=== PATIENT | male | born 1960 | race Caucasian/White ===

== ENCOUNTER 2018-02-14 14:12 | Inpatient (IN) | payer MEDICAID ==
--- OUTSIDE RECORDS SUMMARY | 2018-02-14 15:38 | XMS REPORT ---
:1960 External Reference #:[id number] Author Organization [facility] Address [address] [place] [address] Phone [phone] Care Team Providers Name Role Phone Marlin Colmenares MD Primary Care Physician Unavailable Payers Type Date Identification Numbers Payment Subscriber Provider Workers Compensation Onset: Policy Number: Mayito Collins 2017 [id number] Group Name: [phone] [address] [address] PayID: [place] [address] Problems Date Description Provider Status Onset: 10/17/2017 Arthralgia of the pelvic region and [place] Read M.D. Active thigh Onset: 11/01/2017 Localized, primary osteoarthritis of [place] Read M.D. Active the pelvic region and thigh Onset: 11/29/2017 Current tear of medial cartilage AND/OR [place] Read M.D. Active meniscus of knee Family History Date Family Member(s) Problem(s) Comments General No Current Problems Social History Type Date Description Comments Lives With Spouse Occupation Not Currently Working ETOH Use Occasionally consumes alcohol Smoking Patient has never smoked Exercise Type/Frequency Exercises sporadically Allergies, Adverse Reactions, Alerts Date Description Reaction Status Severity Comments 11/29/2017 Hydrocodone active 10/17/2017 NKDA inactive Medications Medication Date Status Form Strength Qnty SIG Indications Ordering Provider Ibuprofen 200 0 Active Tablets 200mg 400-600mg Unknown 000 every 6 hours as needed for pain. Metoprolol 0 Active Tablets ER 100mg Darrian, Succinate ER 000 24HR MD Marlin Hydrocodone-A Hx Tablets 5-325mg 60tabs 1 to 2 [place] 018 - tablets by Jacek mouth M.D. 018 every 4-6 hours as needed for pain. Mobic Hx Tablets 7.5mg 60tabs 1 by mouth M25.552 Lind[place] 018 - twice a Jacek, day as M.D. 018 needed Hydrocodone-A Hx Tablets 5-325mg Take 1 Unknown cetaminophen 000 - Tablet 3 Times A 018 Day as Needed Vital Signs Date Vital Result Comment 01/31/2018 Height 67 inches 5'7" Weight 212.00 lb Heart Rate 76 /min BP Systolic Recheck 126 mmHg BP Diastolic Recheck 82 mmHg Respiratory Rate 16 /min Body Temperature 98.0 F BMI (Body Mass Index) 33.2 kg/m2 01/15/2018 Height 67 inches 5'7" Weight 208.00 lb Heart Rate 76 /min BP Systolic Recheck 124 mmHg BP Diastolic Recheck 84 mmHg Respiratory Rate 16 /min Body Temperature 98.1 F BMI (Body Mass Index) 32.6 kg/m2 01/03/2018 Height 67 inches 5'7" Weight 207.00 lb Heart Rate 80 /min BP Systolic Recheck 132 mmHg BP Diastolic Recheck 84 mmHg Respiratory Rate 16 /min Body Temperature 97.7 F BMI (Body Mass Index) 32.4 kg/m2 11/29/2017 Height 67 inches 5'7" Weight 190.00 lb Heart Rate 76 /min BP Systolic Recheck 122 mmHg BP Diastolic Recheck 76 mmHg Respiratory Rate 16 /min Body Temperature 97.6 F BMI (Body Mass Index) 29.8 kg/m2 11/01/2017 Height 67.5 inches 5'7.50" Weight 190.00 lb Heart Rate 80 /min BP Systolic Recheck 124 mmHg BP Diastolic Recheck 84 mmHg Respiratory Rate 16 /min Body Temperature 98.4 F BMI (Body Mass Index) 29.3 kg/m2 10/17/2017 Height 67.5 inches 5'7.50" Weight 195.00 lb BP Systolic 122 mmHg BP Diastolic 80 mmHg Respiratory Rate 18 /min Body Temperature 97.1 F Pain Level 10 BMI (Body Mass Index) 30.1 kg/m2 Results Test Date Test Result H/L Range Note Laboratory test finding 01/21/2018 LDH 331 U/L High 140-271 Ferritin 1235.7 ng/mL High 24-336 CBC Auto Diff 01/21/2018 Red Blood Count 4.26 10^6/uL 4.00-5.40 White Blood Count 8.3 10^3/uL 3.5-10.8 Hemoglobin 15.9 g/dL 14.0-18.0 Hematocrit 45 % 42-52 Mean Corpuscular Volume 106 fL High 80-94 1 Mean Corpuscular Hemoglobin 37 pg High 27-31 Mean Corpuscular HGB Conc 35 g/dL 31-36 Red Cell Distribution Width 15 % 10.5-15 Platelet Count 83 10^3/uL Low 150-450 Mean Platelet Volume 8.0 um3 7.4-10.4 Abs Neutrophils 4.9 10^3/uL 1.5-7.7 Abs Lymphocytes 1.9 10^3/uL 1.0-4.8 Abs Monocytes 0.9 10^3/uL High 0-0.8 Abs Eosinophils 0.4 10^3/uL 0-0.6 Abs Basophils 0.1 10^3/uL 0-0.2 Abs Nucleated RBC 0 10^3/uL Granulocyte % 59.7 % 38-83 Lymphocyte % 23.1 % Low 25-47 Monocyte % 11.0 % High 0-7 Eosinophil % 5.3 % 0-6 Basophil % 0.9 % 0-2 Nucleated Red Blood Cells % 0.2 Retic Count 01/21/2018 Retic Count 2.9 % High 0.5-1.5 Mean Retic Volume 128.4 Immature Retic Fraction 0.55 RBC Retic Count 4.26 10^6/uL Low 4.6-6.2 Corrected Retic Count 2.9 % High 0.5-1.5 Maturation Factor Retic 1.0 Retic Index 2.90 Hematocrit for Retic CNT 45 % 42-52 Laboratory test finding 01/21/2018 Direct Matt NEGATIVE Iron & Iron Binding Capacity 01/21/2018 Iron 117 g/dL 50-212 Unsaturated Iron Binding 108 g/dL Total Iron Binding Capacity 225 g/dL Low 250-450 Transferrin 161 mg/dL Low 203-362 % Iron Saturation 52 % 15-55 Laboratory test finding 01/21/2018 Hepatitis B Surface Ag Nonreactive Nonreactive Hepatitis B Angelika AB 01/21/2018 Hepatitis B Surface AB Immune Immune Titer Hep B Surf AB Level 151.28 mIU/mL >12 Laboratory test finding 01/21/2018 Hepatitis B Core AB Nonreactive Nonreactive Igm Hepatitis C Antibody High Reactive Nonreactive 2 Haptoglobin 31 mg/dL 30 - 200 3 Hepatitis C Rna Quant [id number] IU/mL Undetected 4 1 Consistent with Previous Results Reported on 12/26/17 2 High reactive sample are considered positive for Hepatitis C 3 Test Performed by: [facility] [address] [place] [address] 4 Result in log IU/mL is 6.46. ADDITIONAL INFORMATION The quantification range of this assay is 15 to 100,000,000 IU/mL (1.18 log to 8.00 log IU/mL). Testing was performed using the kim HCV test ([employer] with the kim [employer] System. Test Performed by: [facility] [address] [place] [address] Procedures Date CPT Code Description Status 01/04/2018 96592 Arthroscopy,Knee,Meniscectomy Medial Or Lateral Completed Encounters Type Date Location Provider CPT E/M Dx Office Visit 01/15/2018 [facility] [place] [address] S83.232D 9:00a Of Shannan Rodríguez M.D. M25.552 M16.12 Office Visit 11/29/2017 10:30a [facility] [place] 43954 M16.12 Shannan Rodríguez M.D. S83.232A Office Visit 11/01/2017 11:15a [facility] [place] [address]4621 M16.12 Shannan Rodríguez M.D. S70.02xD Office Visit 10/17/2017 8:30a [facility] [place] 32133 M16.12 Carolee Gibson M25.552 Plan of Care 01/31/2018 - [place] Read M.D.M16.12 Unilateral primary osteoarthritis, left hipFollow up:4 weeks after surgery
[2018-02-14] MEDS ORDERED: Morphine VIAL* 10 MG/ML 1 ML VIAL IV PRN (15:44)
--- NOTE | 2018-02-14 16:54 | PN ---
Progress Note - Progress Note Date of Service: 01/14/18 Note: Critical Care consultation dictated. Patient had a paroxysmal SVT, which spontaneously converted shortly after admission to the ICU. This was likely the source of the decrese in blood pressure.
[2018-02-14] MEDS: Famotidine TAB* 20 MG PO SCH (17:39)
[2018-02-14 18:53] LABS: EGFR Non-African American 89.6 (>60)
[2018-02-14] MEDS: Heparin VIAL(*) 5000 UNITS/ML VIAL (FIVE THOUSAND) SUBCUT SCH (20:26)
[2018-02-14] MEDS ORDERED: Acetaminophen TAB* 325 MG PO PRN (21:09)
--- NOTE | 2018-02-14 22:14 | CONS ---
CRITICAL CARE CONSULT: DATE OF CONSULT: 02/14/18 REASON FOR CONSULT: Tachycardia and low blood pressure. HISTORY OF PRESENT ILLNESS: This patient is a 57-year-old white male with apparent cirrhosis of the liver and recent-onset ascites who is admitted to the ICU because of tachycardia and hypotension. On arrival to the ICU, systolic BP had increased from 80 to 120 mm Hg but heart rate was in the 140s. ECG showed a narrow-complex tachycardia with no p waves and a regular rhythm, consistent with paroxysmal SVT or junctional tachycardia Shortly after admission, the tachycardia resolved spontaneously, whih is consistent wth the Dx of paroxysmal SVT. Patient was asymptomatic at the time of the tahycardia. The source of the cirrhosis is unclear - ETOH intake is not excessive, but pt does have hepatitis C. There is also apprarently a mass in the right lobe of the liver (? hepatoma). A paracentesis was performed today to r/o SBP. PAST MEDICAL HISTORY: There is a history of hypertension - Rx metoprolol (100 mg daily). PHYSICAL EXAM: The patient was alert, oriented, and breathing comfortably. Vital Signs: Temp was 98.5 pulse rate 146, respiratory rate was 16, blood pressure was 132/80, arterial O2 sat was 92% on room air. HEENT: Pupils were mid position and reactive. There is no facial asymmetry. Lungs were clear to auscultation. Cardiac exam revealed irregular rhythm without murmurs or rubs. Abdomen was distended. There was question of a positive fluid wave and there was no involuntary or rebound tenderness. Extremities were warm, not cyanotic, and there was trace to 1+ edema. DIAGNOSTIC STUDIES/LAB DATA: Admission laboratory data is pending at this point as is admission chest x-ray. Admission electrocardiogram described previously. IMPRESSION: Paroxysmal SVT, which resolved spontaneously, and probably contributed to the initial hypotension.. BP appears adequate at this time. . PLAN: Will monitor cardiac rhythm overnight and obtain a cardiac ultrasound in the AM (looking for a cardiomyopathy from ETOH or HTN). Critical Care Time: 50 minutes [id number]/[facility] #: [id number] BARBARA
[2018-02-15] MEDS ORDERED: Morphine VIAL* 4 MG/ML VIAL (1 ml vial) IV ONE ×2 (07:53→08:42)
[2018-02-15] MEDS ORDERED: Morphine VIAL* 10 MG/ML 1 ML VIAL IV PRN (08:32)
--- NOTE | 2018-02-15 08:42 | ECHO ---
Patient: AAKASH MADRID [facility] Rec#: [id number] : 1960 Date: 02/15/2018 Age: 57y Height: 170 cm / 66.9 in Weight: 100.2 kg / 220.8 lbs Sex: M BSA: 2.11 Room#: [facility] Admit Date#: 02/14/2018 Type: Inpatient Referring: Asa Sparrow MD Reading: Chuy Casas MD Media Manager: Dodie Maxwell RDCS CC: Marlin Colmenares MD Transthoracic Echocardiogram Indication: Abnormal EKG BP: 121/76 HR: 82 Rhythm: NSR Findings History: HTN, smooker, thrombocytopenia, right lobe liver mass. Technical Comments: The study quality is fair. Completed at 0817. Left Ventricle: The left ventricular chamber size is normal. Mild concentric left ventricular hypertrophy is observed. There is a prominent septal knuckle. There is normal left ventricular systolic function. The estimated ejection fraction is 60-65%. Abnormal left ventricular diastolic function is observed. Abnormal left ventricular diastolic filling is observed, consistent with impaired relaxation. Left Atrium: The left atrium is mildly dilated. Right Ventricle: Moderator Band present. The right ventricle is mild to moderately dilated. The right ventricle wall thickness is mildly increased. The right ventricular global systolic function is low normal. Right Atrium: The right atrial cavity size is normal. Aortic Valve: The aortic valve is trileaflet. The aortic valve leaflets are mildly thickened. There is a trace of aortic regurgitation. There is no evidence of aortic stenosis. Mitral Valve: The mitral valve leaflets are mildly thickened. There is trace to mild mitral regurgitation. There is no evidence of mitral stenosis. Tricuspid Valve: The tricuspid valve leaflets are normal. There is trace tricuspid regurgitation. Unable to estimate the right ventricular systolic pressure. There is no tricuspid stenosis. Pulmonic Valve: The pulmonic valve appears normal. There is a trace pulmonic regurgitation. There is no pulmonic stenosis. Pericardium: There is no significant pericardial effusion. A pericardial fat pad is visualized. Aorta: There is mild dilatation of the ascending aorta. There is no dilatation of the aortic arch. There is mild dilatation of the aortic root. Pulmonary Artery: The main pulmonary artery is not well visualized. Venous: The venous system is not well visualized. The inferior vena cava is not visualized. Summary: There was not any prior study for comparison. Conclusions Mild concentric left ventricular hypertrophy is observed. There is normal left ventricular systolic function. The estimated ejection fraction is 60-65%. Abnormal left ventricular diastolic filling is observed, consistent with impaired relaxation. The left atrium is mildly dilated. The right ventricle is mild to moderately dilated. The right ventricle wall thickness is mildly increased. The right ventricular global systolic function is low normal. There is a trace of aortic regurgitation. There is trace to mild mitral regurgitation. There is trace tricuspid regurgitation. Unable to estimate the right ventricular systolic pressure. There is mild dilatation of the ascending aorta. Measurements Name Value Normal Range RVIDd (AP) 2D 2.7 cm (0.9 - 2.6) RVDdMajor (2D) 5.1 cm (2.2 - 4.4) RAd ISD 4CH 4.6 cm (3.4 - 4.9) RA (A4C)W 4 cm (2.9 - 4.6) IVSd (2D) 1.1 cm (0.6 - 1) LVPWd (2D) 1.1 cm (0.6 - 1) LVIDd (2D) 4.5 cm (3.6 - 5.4) LVIDs (2D) 2.8 cm - LV FS (2D) 38 % (25 - 45) Aortic Annulus 2 cm (1.4 - 2.6) Ao root diameter (2D) 3.8 cm (2.1 - 3.5) Ascending Ao 3.9 cm (2.1 - 3.4) Aortic arch 2.8 cm (1.8 - 3.4) LA dimension (AP) 2D 4.3 cm (2.3 - 3.8) LAd ISD 4CH 5.3 cm (2.9 - 5.3) LA ISD 4CH W 3.7 cm (2.5 - 4.5) Name Value Normal Range LA ESV BP (A/L) index 25 ml/m2 - Name Value Normal Range MV E-wave Vmax 0.7 m/sec - MV deceleration time 187 msec - MV A-wave Vmax 0.9 m/sec - MV E:A ratio 0.8 ratio - LV septal e' Vmax 0.08 m/sec - LV lateral e' Vmax 0.08 m/sec - LV E:e' septal ratio 8.75 ratio - LV E:e' lateral ratio 8.75 ratio - Name Value Normal Range AV Vmax 1.7 m/sec - AV VTI 28.8 cm - AV peak gradient 12 mmHg - AV mean gradient 7 mmHg - LVOT Vmax 1.4 m/sec - LVOT VTI 27.3 cm - LVOT peak gradient 8 mmHg - LVOT mean gradient 5 mmHg - PB Vmax 1 m/sec - Name Value Normal Range PV Vmax 1.1 m/sec - PV peak gradient 5 mmHg -
[2018-02-15] MEDS: Famotidine TAB* 20 MG PO SCH (08:49)
[2018-02-15] MEDS: Heparin VIAL(*) 5000 UNITS/ML VIAL (FIVE THOUSAND) SUBCUT SCH ×2 (08:50→21:54)
[2018-02-15] MEDS ORDERED: Lidocaine 1% INJ* 10 MG/ML 30 ML SDV ONE (10:26)
--- NOTE | 2018-02-15 11:29 | PN ---
Progress Note - Progress Note Date of Service: 02/20/18 SOAP: Subjective: [C/o RUQ abdominal pain this am which seems to be new/different compared to the abdominal discomfort he has been experiencing related to the ascites. Requiring 5L supp O2 and saturating in low 90s, no cough or fever.] Objective: [ Laboratory Results - last 24 hr 02/14/18 02/14/18 02/14/18 18:10 18:10 18:10 APTT 40.6 H Sodium 136 Potassium 4.4 Chloride 106 Carbon Dioxide 22 Anion Gap 8 BUN 21 Creatinine 0.88 Est GFR ( Amer) 108.4 Est GFR (Non-Af Amer) 89.6 BUN/Creatinine Ratio 23.9 H Glucose 124 H Lactic Acid 2.4 H* Calcium 8.5 L Total Bilirubin 3.00 H Direct Bilirubin 1.50 H Indirect Bilirubin 1.5 H AST 144 H ALT 71 H Alkaline Phosphatase 187 H Total Protein 7.0 Albumin 2.4 L Globulin 4.6 H Albumin/Globulin Ratio 0.5 L Acetaminophen (Tylenol Tab*) 650 mg PO Q4H PRN PRN Reason: PAIN Last Admin: 02/14/18 22:51 Dose: 650 mg Famotidine (Pepcid Tab*) 20 mg PO DAILY [facility] Last Admin: 02/15/18 08:49 Dose: 20 mg Fentanyl Citrate (Fentanyl*) 25 mcg IV SLOW PU Q4H PRN PRN Reason: DISCOMFORT Last Admin: 02/15/18 12:00 Dose: 25 mcg Heparin Sodium (Porcine) (Heparin Vial(*)) 5,000 units SUBCUT Q12HR [facility] Last Admin: 02/15/18 08:50 Dose: Not Given Morphine Sulfate (Morphine Vial*) 6 mg IV ONCE PRN PRN Reason: PAIN OR HEPATIC COLIC Morphine Sulfate (Morphine Vial*) 4 mg IV Q4H PRN PRN Reason: PAIN Vital Signs: Temp Pulse Resp BP Pulse Ox 98.0 F 94 20 122/68 92 02/15/18 11:43 02/15/18 10:30 02/15/18 12:00 02/15/18 10:30 02/15/18 10:30 Exam: Gen: Relatively well appearing 57 yo male in NAD HEENT: MMM Resp: lungs CTA CV: RRR, no m/r/g Abd: distended, TTP over RUQ/lower anterior R thorax Ext: trace to 1+ LE edema] Assessment: [57 yo male with hepatitis C and cirrhosis with new onset ascites admitted yesterday with concern for SBP due to tachycardia and hypotension with new ascites and abdominal pain. Recent US showed concerning liver lesion, confirmed by abdominal MRI. Diagnostic paracentesis showed <500 WBCs cells and primarily lymphocytes, ruling out SBP. His initial EKG looked like SVT which spontaneously converted shortly after reaching ICU at which point his BP improved.] Plan: [1. Abdominal pain/ascites with hep C - no SBP - some pain related to abdominal distention but new RUQ pain today, unsure if it is thorax or abdominal - therapeutic paracentesis performed which was somewhat complicated and only yielded 2L before the catheter became dislodged - send ascitic fluid for cytology - start Lasix/spironolactone to control reaccumulation of fluid 2. Hypoxia - concern for possible PE given chest/abd pain and hypoxia - CTA chest which will also evaluate the top of the liver and area that he has been complaining of pain] 3. Liver lesion - requires US guided bx to confirm diagnosis, this will be scheduled as an outpatient - imaging concerning for HCC 4. Paroxysmal SVT - spontaneously converted - sounds to be chronic and patient has managed without BB Dispo: does not require additional ICU care, can transfer to telemetry, CTA pending
[2018-02-15] MEDS: fentaNYL* 50 MCG/ML 2 ML VIAL (100 MCG VIAL) IV SLOW PU PRN ×2 (12:00→16:59)
[2018-02-15] MEDS ORDERED: Iohexol 350* (CONTRAST) 500 ML MDV IV ONE (12:33)
[2018-02-15] MEDS ORDERED: Furosemide TAB* 40 MG PO SCH (13:00)
--- NOTE | 2018-02-15 14:24 | RAD ---
INDICATION: Shortness of breath possibly due to increased abdominal ascites. Hypoxia, chest pain. Assess for PE. COMPARISON: No relevant prior exams available on the [facility]. TECHNIQUE: Multidetector CT images were obtained from the lung apices to the upper abdomen with 81 mL Omnipaque 350 IV contrast. Pulmonary angiogram protocol. Multiplanar reformation including with maximum intensity projection. REPORT: Advanced emphysema with foci of interstitial fibrosis. RIGHT greater than LEFT basilar atelectasis. Negative for pleural effusions. 0.9 cm short axis precarinal lymph node. Negative for thoracic lymphadenopathy based on short axis size criteria. Upper normal heart size. Negative for pericardial effusion. Unremarkable thoracic aorta. Motion artifact degrades the CT pulmonary angiogram at the segmental and distal levels limiting assessment. There is no saddle embolism or conspicuous pulmonary embolism within the main or conspicuous lobar, segmental or where visible subsegmental pulmonary arteries. Images through the upper abdomen are remarkable for perihepatic and perisplenic ascites, cirrhotic liver morphology, and splenomegaly. Negative for suspicious osseous lesions. IMPRESSION: #. Significantly limited CT pulmonary angiogram due to motion artifact without compelling evidence for central pulmonary embolus. If there is persistent clinical concern for pulmonary embolism consider ventilation/perfusion scan for further assessment. #. Advanced emphysema.] RIGHT greater than LEFT basilar atelectasis. Negative for pleural effusions. #. Images through the upper abdomen are remarkable for perihepatic and perisplenic ascites, cirrhotic liver morphology, and splenomegaly.
[2018-02-15] MEDS: Morphine VIAL* 4 MG/ML VIAL (1 ml vial) IV PRN ×2 (14:33→21:57)
[2018-02-15] MEDS ORDERED: Spironolactone TAB* 25 MG PO SCH (21:00)
[2018-02-16] MEDS: fentaNYL* 50 MCG/ML 2 ML VIAL (100 MCG VIAL) IV SLOW PU PRN (00:11)
[2018-02-16] MEDS: Morphine VIAL* 4 MG/ML VIAL (1 ml vial) IV PRN (03:32)
[2018-02-16 06:00] LABS: ABS Basophils 0 10^3/ul (0-0.2); ABS Eosinophils 0.2 10^3/ul (0-0.6); ABS Lymphocytes 1.7 10^3/ul (1.0-4.8); ABS Neutrophils 5.9 10^3/ul (1.5-7.7); ABS Nucleated RBC 0 10^3/ul; Hematocrit 43 % (42-52); Hemoglobin 14.8 g/dl (14.0-18.0); Lymphocyte % 19.1 % (25-47); Mean Corpuscular HGB Conc 35 g/dl (31-36); Mean Corpuscular Hemoglobin 37 pg (27-31); Mean Corpuscular Volume 107 fL (80-94); Nucleated Red Blood Cells % 0.1; Platelet Count 75 10^3/ul (150-450); Red Blood Count 4.01 10^6/ul (4.00-5.40); Red Cell Distribution Width 15 % (10.5-15); White Blood Count 8.8 10^3/ul (3.5-10.8)
[2018-02-16 06:16] LABS: EGFR Non-African American 106.1 (>60)
--- NOTE | 2018-02-16 07:46 | DS ---
- Discharge Summary ADMIT DATE: 02/14/2018 DISCHARGE DATE: 02/16/2018 DISCHARGE DIAGNOSIS: 1. hypotension and tachycardia, likely related to SVT, spontaneously resolved 2. decompensated hepatitis C cirrhosis, sp 2L paracentesis 3. liver mass, pending biopsy 4. acute hypoxia, likely fluid related, will need new home O2 DISCHARGE MEDICATIONS: Home Medications Medication Instructions Recorded Confirmed Type Albuterol HFA INHALER* [Ventolin 2 puff INH Q4HR PRN 02/15/18 02/15/18 History HFA Inhaler*] Metoprolol Succinate XL TAB* 100 mg PO DAILY 02/15/18 02/15/18 History [Toprol XL TAB*] Furosemide TAB* [Lasix TAB*] 40 mg PO DAILY #30 tab 02/16/18 Rx Spironolactone TAB* [Aldactone TAB 50 mg PO BID #60 tab 02/16/18 Rx 25 MG*] DISCHARGE FOLLOW UP: Dr. Rothman to arrange liver biopsy and follow up HOSPITAL COURSE: Javon was recently diagnosed with hepatitis C and cirrhosis after being referred to my office for thrombocytopenia and preoperative clearance for hip replacement. US imaging revealed a likely liver mass. He came to the hospital for MRI of the liver, but came to our office reporting new onset worsening abdominal bloating. He was found to have marked ascites. He was also noted to be acutely hypotensive and tachycardic with a narrow complex tachycardia. He was admitted to the ICU where he spontaneously converted to sinus rhythm and his BP recovered. Diagnostic paracentesis was negative for SBP. Therapeutic paracentesis only yielded 2L prior to the catheter being dislodged but he was symptomatically much better. Lasix and spironolactone were added as well. He was noted to be hypoxic, felt likely related to fluid overload and a component of underlying COPD. CTA was negative for central PE, but did show advanced emphysema. He will be discharged home on O2 given a resting O2 sat of 87% on room air. We will arrange for outpatient biopsy of his liver lesion. I suspect that this is HCC and if that is the case he may be a candidate for liver transplantation, though will clearly refer to a specialty center for this evaluation. >30mins spent, >50% in face to face counseling
[2018-02-16 08:04] VITALS: BP 134/88
--- NOTE | 2018-02-16 20:54 | PROCNOTE ---
Hematology/Oncology Procedure Hematology/Oncology Procedure Note: Bedside Paracentesis: Written informed consent obtained. Time out completed. Area in LLQ identified. Area prepped and draped in a sterile fashion. Local anesthesia with 2% lidocaine. [id number] was initially successful, but flow stopped shortly after connecting to vacutainer. Multiple attempts to adjust catheter was unsuccessful. Catheter pulled. New time out completed, patient redraped and again accessed area in LLQ. Successful drain to gravity. Sent for cytology. Later notified that while changing the bag the catheter was dislodged after 2L was drained. Patient had improved symptomatically, so another attempt was not made.
== END 2018-02-16 10:10 | disposition home or self-care (01) | DRG 952 ==
LOC: ICU 14:12 → MEDTELE 02-15 14:01
PROVIDERS: ADMIT Internal Medicine Hematology & Oncology; ATTEND Internal Medicine Hematology & Oncology
PROC: 0W9G3ZX Drainage of Peritoneal Cavity, Percutaneous Approach, Diagnostic (ICD-10-PCS; principal; 2018-02-16)
DX: I47.1 Supraventricular tachycardia (principal); R18.8 Other ascites; I95.89 Other hypotension; B19.20 Unspecified viral hepatitis C without hepatic coma; R16.0 Hepatomegaly, not elsewhere classified; R09.02 Hypoxemia; J44.9 Chronic obstructive pulmonary disease, unspecified; E87.70 Fluid overload, unspecified; K74.60 Unspecified cirrhosis of liver; D69.6 Thrombocytopenia, unspecified; D75.89 Other specified diseases of blood and blood-forming organs; I10 Essential (primary) hypertension; F17.210 Nicotine dependence, cigarettes, uncomplicated; M16.12 Unilateral primary osteoarthritis, left hip; R74.0 Nonspecific elevation of levels of transaminase and lactic acid dehydrogenase [LDH]; Z88.8 Allergy status to other drugs, medicaments and biological substances; Z79.1 Long term (current) use of non-steroidal anti-inflammatories (NSAID); Z79.899 Other long term (current) drug therapy
CPT/HCPCS: 36415; 49082; 71275; 80053; 82248; 83605; 83615; 85025; 85730; 87641; 88112; 93005; 93306; 99233; A9270-GY; J1644; J2270; J3010

== ENCOUNTER 2018-06-03 13:30 | Emergency (ER) | payer BC, MEDICAID ==
[2018-06-03 14:20] LABS: Hematocrit 45 % (42-52); Hemoglobin 15.5 g/dl (14.0-18.0); Mean Corpuscular HGB Conc 35 g/dl (31-36); Mean Corpuscular Hemoglobin 37 pg (27-31); Mean Corpuscular Volume 106 fL (80-94); Mean Platelet Volume 7.6 fL (7.4-10.4); Platelet Count 84 10^3/ul (150-450); Red Blood Count 4.18 10^6/ul (4.00-5.40); Red Cell Distribution Width 16 % (10.5-15); White Blood Count 7.2 10^3/ul (3.5-10.8)
[2018-06-03 14:25] LABS: Activated Partial Thrombo Time 41.2 seconds (26.0-36.3); INR 1.15 (0.77-1.02)
[2018-06-03 14:42] LABS: Albumin 2.5 g/dL (3.2-5.2); Albumin/Globulin Ratio 0.5 (1-3); BUN/Creatinine Ratio 18.2 (8-20); Calcium 8.5 mg/dL (8.6-10.3); EGFR Non-African American 104.5 (>60); Globulin 4.8 g/dL (2-4); Potassium 4.2 mmol/L (3.5-5.0); Total Bilirubin 3.4 mg/dL (0.2-1.0); Total Protein 7.3 g/dL (6.4-8.9)
--- NOTE | 2018-06-03 15:23 | ED ---
Abdominal Pain/Male - HPI Summary HPI Summary: This patient is a 57 year old M presenting to [facility] with a chief complaint of abdominal distension that began prior to arrival. The patient rates the pain 5/ 10 in severity. Symptoms aggravated by recumbent position. Symptoms alleviated by nothing. Patient reports SOB. Patient states he has had similar symptoms previously. Patient states he has liver CA and was treated with radiation therapy, last treatment was two weeks ago. - History of Current Complaint Chief Complaint: EDAbdPain Stated Complaint: ABD SWELLING Hx Obtained From: Patient Onset/Duration: Sudden Onset, Lasting Hours, Still Present Timing: Constant Severity Initially: Moderate Severity Currently: Moderate Pain Intensity: 5 Pain Scale Used: 0-10 Numeric Location: Diffuse Aggravating Factor(s): Other: - Recumbent position Alleviating Factor(s): Nothing Associated Signs And Symptoms: Positive: Other - SOB - Allergies/Home Medications Allergies/Adverse Reactions: Allergies Allergy/AdvReac Type Severity Reaction Status Date / Time hydrocodone AdvReac Mild GI Upset Verified 06/03/18 13:38 Home Medications: Home Medications Fluticasone NASAL SPRAY 50MCG* [Flonase NASAL SPRAY 50MCG*] 1 spray BOTH NARES DAILY 06/03/18 [History Confirmed 06/03/18] Lactulose* 15 ml PO DAILY 06/03/18 [History Confirmed 06/03/18] Medical Marijuana 1 - 3 puff INH QPM PRN 06/03/18 [History Confirmed 06/03/18] Spironolactone TAB* [Aldactone TAB*] 25 mg PO BID 06/03/18 [History Confirmed ] guaiFENesin ER TAB [Mucinex*] 600 mg PO QPM 06/03/18 [History Confirmed 06/03/18 ] PMH/Surg Hx/FS Hx/Imm Hx Previously Healthy: No Endocrine/Hematology History: Denies: Hx Diabetes Cardiovascular History: Reports: Hx Hypertension Denies: Hx Pacemaker/ICD GI History: Reports: Hx Jaundice, Hx Ulcer - 20 years ago History: Reports: Hx Kidney Stones - 20 years ago Denies: Hx Renal Disease Musculoskeletal History: Reports: Other Musculoskeletal History Sensory History: Reports: Hx Contacts or Glasses Denies: Hx Hearing Aid Opthamlomology History: Reports: Hx Contacts or Glasses Psychiatric History: Denies: Hx Panic Disorder - Surgical History Surgery Procedure, Year, and Place: 01/04/18 - L KNEE - ARTHROSCOPIC. Rt KNEE - - 3 TIMES - ACL (TWICE) AND MMT . Rt ARM - BICEP TENDON ATTEMPTED REPAIR Hx Anesthesia Reactions: No Infectious Disease History: No Infectious Disease History: Reports: Hx Hepatitis - hep C Denies: Traveled Outside the [place] in Last 30 Days - Family History Known Family History: Negative: Cardiac Disease - Social History Occupation: Disabled Lives: With Family Alcohol Use: None Alcohol Amount: couple one nite then none for 2 weeks Hx Substance Use: Yes Substance Use Type: Reports: Marijuana Substance Use Comment - Amount & Last Used: medical Hx Tobacco Use: Yes Smoking Status (MU): Former Smoker Type: Cigarettes Amount Used/How Often: 10 per week Review of Systems Positive: Shortness Of Breath Positive: Other - Positive abdominal distension All Other Systems Reviewed And Are Negative: Yes Physical Exam - Summary Physical Exam Summary: VITAL SIGNS: Reviewed. GENERAL: Patient is a well-developed and nourished male who is lying comfortable in the stretcher. Patient is not in any acute respiratory distress. HEAD AND FACE: Normocephalic and atraumatic. EYES: PERRLA, EOMI x 2, No injected conjunctiva. EARS: Hearing grossly intact. Ear canals and tympanic membranes are WNL. MOUTH: Oropharynx within normal limits. NECK: Supple, trachea is midline, no adenopathy, no JVD. CHEST: Symmetric, no tenderness at palpation LUNGS: Clear to auscultation bilaterally. No wheezing or crackles. CVS: RRR, S1 and S2 present, no murmurs or gallops appreciated. ABDOMEN: Soft, non-tender. Ascites in the abdomen. Positive bowel sounds. No rebound no guarding, and no masses palpated. No abdominal bruit or pulsations. EXTREMITIES: FROM in all major joints, no edema, no cyanosis or clubbing. NEURO: Alert and oriented x 3. No acute neurological deficits. Speech is normal. SKIN: Dry and warm. Pale. Jaundiced Triage Information Reviewed: Yes Vital Signs On Initial Exam: Initial Vitals Temp Pulse Resp BP Pulse Ox 97.6 F 69 18 104/72 92 06/03/18 13:35 06/03/18 13:35 06/03/18 13:35 06/03/18 13:35 06/03/18 13:35 Vital Signs Reviewed: Yes Diagnostics - Vital Signs Vital Signs Temp Pulse Resp BP Pulse Ox 06/03/18 13:35 97.6 F 69 18 104/72 92 - Laboratory Lab Results: Lab Results 06/03/18 06/03/18 06/03/18 Range/Units 13:08 13:08 13:08 WBC 7.2 (3.5-10.8) 10^3/ul RBC 4.18 (4.00-5.40) 10^6/ul Hgb 15.5 (14.0-18.0) g/dl Hct 45 (42-52) % MCV 106 H (80-94) fL MCH 37 H (27-31) pg MCHC 35 (31-36) g/dl RDW 16 H (10.5-15) % Plt Count 84 L (150-450) 10^3/ul MPV 7.6 (7.4-10.4) fL INR (Anticoag Therapy) 1.15 H (0.77-1.02) APTT 41.2 H (26.0-36.3) seconds Sodium 131 L (135-145) mmol/L Potassium 4.2 (3.5-5.0) mmol/L Chloride 101 (101-111) mmol/L Carbon Dioxide 27 (22-32) mmol/L Anion Gap 3 (2-11) mmol/L BUN 14 (6-24) mg/dL Creatinine 0.77 (0.67-1.17) mg/dL Est GFR ( Amer) 126.5 (>60) Est GFR (Non-Af Amer) 104.5 (>60) BUN/Creatinine Ratio 18.2 (8-20) Glucose 111 H (70-100) mg/dL Calcium 8.5 L (8.6-10.3) mg/dL Total Bilirubin 3.40 H (0.2-1.0) mg/dL AST 103 H (13-39) U/L ALT 37 (7-52) U/L Alkaline Phosphatase 128 H (34-104) U/L Total Protein 7.3 (6.4-8.9) g/dL Albumin 2.5 L (3.2-5.2) g/dL Globulin 4.8 H (2-4) g/dL Albumin/Globulin Ratio 0.5 L (1-3) Result Diagrams: 06/03/18 13:08 06/03/18 13:08 Lab Statement: Any lab studies that have been ordered have been reviewed, and results considered in the medical decision making process. Abdominal Pain Fem Course/Dx - Course Assessment/Plan: This patient is a 57 year old M presenting to [facility] with a chief complaint of abdominal distension that began prior to arrival. The patient rates the pain 5/10 in severity. Symptoms aggravated by recumbent position. Symptoms alleviated by nothing. Patient reports SOB. Patient states he has had similar symptoms previously. Patient states he has liver CA and was treated with radiation therapy, last treatment was two weeks ago. Blood work without any significant abnormality except for MCV being of 106, platelets 84, INR is 1.95 PTT is 41.2. Sodium is 131, glucose 111, corrected calcium is normal, total bili including is 3.4. At this point I discussed my physical exam findings with and Dr. Burr from oncology and he recommends for the patient to be discharged to his office for a paracentesis. I discussed the findings and plan with the patient and he agrees. Patient is hemodynamically stable alert and oriented 3. - Diagnoses Provider Diagnoses: Ascites - Provider Notifications Discussed Care Of Patient With: rFitz Burr Time Discussed With Above Provider: 15:53 Instructed by Provider To: Other - Consult with Dr. Burr (oncology) at 1553. He recommends the patient be discharged to his office for parentheses. Discharge - Sign-Out/Discharge Documenting (check all that apply): Patient Departure - Discharge to Dr. Burr's Office - Discharge Plan Condition: Stable Disposition: HOME Patient Education Materials: Ascites (ED) Referrals: Marlin Colmenares MD [Primary Care Provider] - 2 Days Fritz Burr MD [Medical Doctor] - As Soon As Possible Additional Instructions: PROCEED DIRECTLY TO DR. BRUR'S OFFICE RETURN TO THE EMERGENCY DEPARTMENT FOR NEW OR WORSENING SYMPTOMS - Billing Disposition and Condition Condition: STABLE Disposition: Home - Attestation Statements Document Initiated by Scribe: Yes Documenting Scribe: Vanita Wang Provider For Whom Scribe is Documenting (Include Credential): Dr. Scott Lyman MD Scribe Attestation: Vanita Zhang, scribed for Dr. Scott Lyman MD on 06/04/18 at 4878. Scribe Documentation Reviewed: Yes Provider Attestation: The documentation as recorded by the scribe, Vanita Wang accurately reflects the service I personally performed and the decisions made by me, Dr. Scott Lyman MD Status of Scribe Document: Viewed
[2018-06-03 16:40] VITALS: BP 105/76
== END 2018-06-03 16:39 | disposition home or self-care (01) ==
LOC: ED 13:30
DX: R18.8 Other ascites (principal); C22.8 Malignant neoplasm of liver, primary, unspecified as to type; Z87.891 Personal history of nicotine dependence; I10 Essential (primary) hypertension
CPT/HCPCS: 36415; 80053; 85027; 85610; 85730; 99283

== ENCOUNTER 2018-10-15 18:20 | Observation (INO) | payer OTHER ==
[2018-10-15] MEDS ORDERED: oxyCODONE TAB* 5 MG TAB PO ONE (19:05)
--- NOTE | 2018-10-15 19:07 | ED ---
Lower Extremity - HPI Summary HPI Summary: This patient is a 58 year old male presenting to [facility] with a chief complaint of hip pain after a fall 2 hours ago. The patient states he slipped on stones today and had mechanical fall. He on his left side, states left rib pain. He has a Hx left hip fracture that was not operated on. He states hx liver cancer and states he needs a transplant. He rates his pain 10/10 in severity. - History of Current Complaint Chief Complaint: EDFall Stated Complaint: FALL PER PT Time Seen by Provider: 10/15/18 18:59 Hx Obtained From: Patient Onset of Pain: Minutes Onset/Duration: Minutes Severity Initially: Severe Severity Currently: Severe Pain Intensity: 10 Pain Scale Used: 0-10 Numeric Timing: Constant - Allergies/Home Medications Allergies/Adverse Reactions: Allergies Allergy/AdvReac Type Severity Reaction Status Date / Time hydrocodone AdvReac Mild GI Upset Verified 06/03/18 13:38 PMH/Surg Hx/FS Hx/Imm Hx Endocrine/Hematology History: Denies: Hx Diabetes Cardiovascular History: Reports: Hx Hypertension Denies: Hx Pacemaker/ICD GI History: Reports: Hx Jaundice, Hx Ulcer - 20 years ago History: Reports: Hx Kidney Stones - 20 years ago Denies: Hx Renal Disease Musculoskeletal History: Reports: Other Musculoskeletal History Sensory History: Reports: Hx Contacts or Glasses Denies: Hx Hearing Aid Opthamlomology History: Reports: Hx Contacts or Glasses Psychiatric History: Denies: Hx Panic Disorder - Surgical History Surgery Procedure, Year, and Place: 01/04/18 - L KNEE - ARTHROSCOPIC. Rt KNEE - - 3 TIMES - ACL (TWICE) AND MMT . Rt ARM - BICEP TENDON ATTEMPTED REPAIR Hx Anesthesia Reactions: No Infectious Disease History: No Infectious Disease History: Reports: Hx Hepatitis - hep C Denies: Traveled Outside the [place] in Last 30 Days - Family History Known Family History: Negative: Cardiac Disease - Social History Alcohol Use: None Alcohol Amount: couple one nite then none for 2 weeks Hx Substance Use: Yes Substance Use Type: Reports: Marijuana Substance Use Comment - Amount & Last Used: medical Hx Tobacco Use: Yes Smoking Status (MU): Former Smoker Type: Cigarettes Amount Used/How Often: 10 per week Review of Systems Negative: Fever Positive: Other - left hip and rib pain All Other Systems Reviewed And Are Negative: Yes Physical Exam - Summary Physical Exam Summary: Appearance: The patient is well-nourished in no acute distress and in no acute pain. Skin: The skin is warm and dry and skin color reflects adequate perfusion. HEENT: The head is normocephalic and atraumatic. The pupils are equal and reactive. The conjunctivae are clear and without drainage. Nares are patent and without drainage. Mouth reveals moist mucous membranes and the throat is without erythema and exudate. The external ears are intact. The ear canals are patent and without drainage. The tympanic membranes are intact. Neck: The neck is supple with full range of motion and non-tender. There are no carotid bruits. There is no neck vein distension. Respiratory: Chest is non-tender. Lungs are clear to auscultation and breath sounds are symmetrical and equal. Cardiovascular: Heart is regular rate and rhythm. There is no murmur or rub auscultated. There is no peripheral edema and pulses are symmetrical and equal. Abdomen: The abdomen is soft and non-tender. There are normal bowel sounds heard in all four quadrants and there is no organomegaly palpated. Musculoskeletal: There is no back tenderness noted. Extremities are non-tender with full range of motion. There is good capillary refill. There is no peripheral edema or calf tenderness elicited. Neurological: Patient is alert and oriented to person, place and time. The patient has symmetrical motor strength in all four extremities. Cranial nerves are grossly intact. Deep tendon reflexes are symmetrical and equal in all four extremities. Psychiatric: The patient has an appropriate affect and does not exhibit any anxiety or depression. Triage Information Reviewed: Yes Vital Signs On Initial Exam: Initial Vitals Temp Pulse Resp BP Pulse Ox 98.6 F 75 18 106/75 95 10/15/18 18:21 10/15/18 18:21 10/15/18 18:21 10/15/18 18:21 10/15/18 18:21 Vital Signs Reviewed: Yes Diagnostics - Vital Signs Vital Signs Temp Pulse Resp BP Pulse Ox 10/15/18 18:21 98.6 F 75 18 106/75 95 - Laboratory Lab Statement: Any lab studies that have been ordered have been reviewed, and results considered in the medical decision making process. - Radiology CXR Radiology Interpretation Completed By: ED Physician Summary of Radiographic Findings: No acute processes. Pending official radiologist report. Hip/Pelvis XR Radiology Interpretation Completed By: ED Physician Summary of Radiographic Findings: No acute fractures. Pending offical radiologist report. Lower Extremity Course/Dx - Course Course Of Treatment: Mr. Soriano seemed to be in a great deal of pain after falling today. He was unable to ambulate secondary to pain in spite of getting parenteral medications here. Plain films revealed no acute process and a CT scan was obtained. I'm still waiting for the official read but I do not see any fractures on them. The hospitalist was contacted for admission for intractable pain. - Diagnoses Provider Diagnoses: Hip pain, Chest wall pain Discharge - Sign-Out/Discharge Documenting (check all that apply): Patient Departure - Admission - Discharge Plan Condition: Stable Disposition: ADMITTED TO [facility] Referrals: Marlin Colmenares MD [Primary Care Provider] - - Billing Disposition and Condition Condition: STABLE Disposition: Admitted to [facility] - Attestation Statements Document Initiated by Lillian: Yes Documenting Scribe: Osman Encinas Provider For Whom Lillian is Documenting (Include Credential): Konstantin Dwyer MD Scribe Attestation: IOsman, scribed for Konstantin Dwyer MD on 10/15/18 at 2155. Scribe Documentation Reviewed: Yes Provider Attestation: The documentation as recorded by the Osman cronin accurately reflects the service I personally performed and the decisions made by me, Konstantin Dwyer MD Status of Scribtrue Document: Viewed
[2018-10-15] MEDS ORDERED: Ketorolac INJ* 30 MG/ML 1 ML VIAL IM ONE (20:31)
[2018-10-15 22:11] LABS: ABS Eosinophils 0.3 10^3/ul (0-0.6); ABS Lymphocytes 0.5 10^3/ul (1.0-4.8); ABS Monocytes 0.9 10^3/ul (0-0.8); ABS Neutrophils 6.8 10^3/ul (1.5-7.7); Hematocrit 35 % (42-52); Hemoglobin 12.1 g/dL (14.0-18.0); Lymphocyte % 5.9 %; Mean Corpuscular HGB Conc 35 g/dL (31-36); Mean Corpuscular Hemoglobin 38 pg (27-31); Mean Corpuscular Volume 110 fL (80-94); Mean Platelet Volume 7.4 fL (7.4-10.4); Nucleated Red Blood Cells % 0.1; Platelet Count 97 10^3/uL (150-450); Red Blood Count 3.19 10^6 /uL (4.18-5.48); Red Cell Distribution Width 16 % (10.5-15); White Blood Count 8.5 10^3/uL (3.5-10.8)
[2018-10-15 22:14] LABS: INR 1.33 (0.82-1.09)
[2018-10-15 22:25] LABS: Albumin/Globulin Ratio 0.7 (1-3); BUN/Creatinine Ratio 18.8 (8-20); Calcium 8.9 mg/dL (8.6-10.3); EGFR African American 92.1 (>60); EGFR Non-African American 76.1 (>60); Globulin 4.2 g/dL (2-4); Magnesium 1.8 mg/dL (1.9-2.7); Total Bilirubin 3.5 mg/dL (0.2-1.0); Total Protein 7.2 g/dL (6.4-8.9)
[2018-10-15] MEDS ORDERED: NS 0.9% 1000 ML** 1,000 ML IV ONE (23:09)
[2018-10-15] MEDS ORDERED: Ondansetron INJ* 2 MG/ML VIAL IV ONE (23:09)
[2018-10-16 00:26] LABS: ABS Eosinophils 0.2 10^3/ul (0-0.6); ABS Lymphocytes 0.4 10^3/ul (1.0-4.8); ABS Monocytes 0.7 10^3/ul (0-0.8); Eosinophil % 3.1 %; Hematocrit 34 % (42-52); Hemoglobin 11.6 g/dL (14.0-18.0); Lymphocyte % 5.2 %; Mean Corpuscular HGB Conc 35 g/dL (31-36); Mean Corpuscular Hemoglobin 38 pg (27-31); Mean Corpuscular Volume 110 fL (80-94); Mean Platelet Volume 7.3 fL (7.4-10.4); Platelet Count 91 10^3/uL (150-450); Red Blood Count 3.07 10^6 /uL (4.18-5.48); Red Cell Distribution Width 16 % (10.5-15); White Blood Count 7.4 10^3/uL (3.5-10.8)
[2018-10-16] MEDS ORDERED: Al Hydrox/Mg Hydrox/Simet LIQ* 30 ML UDC PO PRN (00:32)
[2018-10-16 00:34] LABS: Calcium 8.3 mg/dL (8.6-10.3); EGFR African American 93.2 (>60); Potassium 4.6 mmol/L (3.5-5.0)
[2018-10-16] MEDS ORDERED: MEDICAL MARIJUANA INH PRN (00:35)
[2018-10-16] MEDS ORDERED: Morphine INJ* 2 MG/ML 1 ML SYRINGE (TWO MG - NEW SYRINGE VERSION) IV PRN (00:41)
--- NOTE | 2018-10-16 00:41 | PN ---
Progress Note - Progress Note Date of Service: 10/16/18 Note: Patient road tested with walker without issue. Sat up at edge of bed when he became lightheaded, dizzy and nauseated. Daughter went to get help and patient had slumped over and fell over onto his wheelchair. Hit left side of his face - mild erythema. RN noted diaphoretic and hypotensive. On my arrival, he appears improved. Likely vasovagal from hypovolemia. Eating now. Repeat labs ordered. . Will obtain Head CT Plan Consult to admission to on tele Will check glucose and orthostatics. Will hold off on fluids Need to confirm med rec with pharmacy and patient states he takes all meds in AM with exception of lactulose which is TID Will decresae spironolactone to daily and lower metoprolol to 50 mg from 100 and continue Lasix in AM. But may need to continue to adjust PT consult. Recommend contact Dr. Read in AM and touching base with Oncology as well Continue pain regimen - patient requesting morphine. Will continue oxycodone and morphine for breakthrough pain
--- NOTE | 2018-10-16 01:45 | ED ---
Progress - Progress Note Progress Note: Patient was supposed to be discharged home but had a syncopal episode while ambulating to start leaving the ED. He is currently in pain but there is no new pain from previous visit with Dr. Reymundo harding. EKG reveals NSR. I spoke with Dr. Palacios at 0030, and she accepts the patient for admission at this time. The patient agrees with this plan and understands the need for admission at this time. - Results/Orders Results/Orders: EKG: Taken at 2323, Normal EKG, NSR: 77 BPM, Normal [place], Normal Interval, Nonspecificl ST Course/Dx - Course Course Of Treatment: Patient with several significant comorbidities who had been somebody they wanted to admit but had refused this. When he was standing he grew lightheaded, nauseous and sweaty and had a syncopal episode. He did not sustain injury with this fall. Following the syncope EKG was repeated and negative. Hospitalist was already involved in his care and will admit him. - Diagnoses Provider Diagnoses: Hip pain, Chest wall pain, Vasovagal syncope - Provider Notifications Discussed Care Of Patient With: Cristina Palacios - hospitalist Time Discussed With Above Provider: 00:30 Instructed by Provider To: Other - I consulted with Dr. Palacios who accepts the patient for admission. Discharge - Sign-Out/Discharge Documenting (check all that apply): Patient Departure - Patient will be admitted to [facility] for further care. Patient Received Moderate/Deep Sedation with Procedure: No - Discharge Plan Condition: Fair Disposition: ADMITTED TO [facility] - Billing Disposition and Condition Condition: FAIR Disposition: Admitted to [facility] - Attestation Statements Document Initiated by Lillian: Yes Documenting Scribe: Dara Scott Provider For Whom Lillian is Documenting (Include Credential): Dr. Prieto Wang MD Scribe Attestation: I, Dara Scott, scribed for Dr. Prieto Wang MD on 10/16/18 at 4735. Scribe Documentation Reviewed: Yes Provider Attestation: The documentation as recorded by the Dara cronin accurately reflects the service I personally performed and the decisions made by me, Dr. Prieto Wang MD Status of Scribe Document: Viewed
[2018-10-16] MEDS: oxyCODONE TAB* 5 MG TAB PO PRN (03:06)
--- NOTE | 2018-10-16 03:26 | CONS ---
CC: Dr. Marlin Colmenares; Dr. Read; Dr. Rothman * CONSULTATION NOTE: DATE OF CONSULTATION: 10/15/18 TIME OF EVALUATION: 2199. PRIMARY CARE PHYSICIAN: Dr. Marlin Colmenares. ORTHOPEDIC SURGEON: Dr. Read. ONCOLOGIST: Dr. Rothman. REQUESTING PHYSICIAN FOR CONSULTATION: Shlomo Dwyer MD REASON FOR CONSULTATION: Evaluation for admission. CHIEF COMPLAINT: Left hip and left rib pain. HISTORY OF PRESENT ILLNESS: This is a 58-year-old male with a past medical history of hepatocellular carcinoma on the liver transplant list who states he suffered a hip fracture last September 2017 and he was also having issues with his knee. At that time, he was able to have knee surgery and while he had his preoperative evaluation for his hip repair, he was diagnosed with liver cancer at that time. They wanted to wait on fixing his hip until he had his liver transplant, so since then he has been favoring his left side. He did fall a few weeks ago and injured the left side of his ribs. Today, he was walking and he states he slipped on a few stones and fell hard on the left side, complaining of left hip and left rib pain. No lightheadedness or dizziness prior to fall. No loss of consciousness. No head injury. In the emergency room, he was complaining of left hip and left rib pain and was concerned for being able to ambulate. The patient denies any fevers or chills. No chest pain. He does have some cough, some shortness of breath. He gets routine paracentesis and states his abdomen is starting to become more distended and he is likely due for another paracentesis. In the emergency room, the patient was given Toradol 30 mg and oxycodone 5 mg and referred to the hospitalist service for further evaluation. PAST MEDICAL HISTORY: 1. History of hepatocellular carcinoma with cirrhosis followed by Dr. Rothman. He gets routine albumin infusions and paracentesis, on the liver transplant list at [place], phone number [phone]. 2. History of left hip fracture, awaiting repair, being followed by Dr. Read. 3. Hepatitis C. 4. Osteoarthritis. 5. History of encephalopathy. PAST SURGICAL HISTORY: 1. Left meniscal repair. 2. Right ACL repair x2. 3. Right biceps repair. 4. Right knee meniscus repair. MEDICATIONS: 1. The patient states they recently changed all his medications, so he takes them all in the morning with the exception of lactulose, he is supposed to be taking it t.i.d. 15 mL. 2. He takes spironolactone, unclear the dose. 3. Toprol XL 100 mg p.o. daily. 4. Medicinal marijuana inhaled as needed. 5. Lasix 40 mg daily. 6. Flonase 1 spray both nares daily. 7. Mucinex 600 mg daily in the evening. ALLERGIES: HYDROCODONE, GI upset. FAMILY HISTORY: Mother from CVA and heart attack, age 68. Father , age 68 from a brain aneurysm. SOCIAL HISTORY: The patient lives with his girlfriend. His healthcare proxies are his , Aissatou, and daughter, Huma, who is at the bedside. He quit smoking and drinking 11 months ago at the time of his diagnosis. At that time, he was smoking half a pack per day for at least 40 years. He states he cheats every now and then and does smoke cigarettes. No longer using alcohol. He states he would drink on weekends and occasionally during the week. 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 Code status, full code. REVIEW OF SYSTEMS: A 14-point review of systems as mentioned in the HPI, otherwise negative. PHYSICAL EXAM: GENERAL: In no acute distress. Resting comfortably with his daughter at the bedside. VITALS: Temperature is 98.6, pulse rate is 90, respiratory rate is 18, oxygen saturation is 93% on room air, blood pressure 110/71. HEENT: Head normocephalic. Pupils equal and reactive, anicteric. Oropharynx: Mucous membranes moist. NECK: Supple. CARDIAC: Regular rate and rhythm. Systolic murmur most prominent at the apex. RESPIRATORY: Diminished breath sounds. No wheezes, rhonchi, or rales. ABDOMEN: Positive bowel sounds, soft, mild distention with a fluid wave, nontender. EXTREMITIES: Some mild ecchymosis bilaterally in his lower extremities. +1 DPs. He is able to lift his left leg and has some range of motion with internal and external rotation of his left hip. No pelvic instability. NEUROLOGIC: Alert and oriented x3. No gross focal neurologic deficits. DIAGNOSTIC STUDIES/LAB DATA: White count 8.5, hemoglobin 12.1, hematocrit 35, platelets 97,000. INR was 1.33. Sodium 133, potassium 5, chloride 104, bicarb 24, BUN 19, creatinine 1.01. Mag is 1.8, total bili is 3.5. AST is 69, ALT is 30, alk phos 170. All of the patient's preliminary reports are chest, abdomen, and pelvis CT is pending. Hip and pelvis x-ray is unremarkable for fracture. Chest x-ray unremarkable for rib fracture. ASSESSMENT: This is a 58-year-old male with past medical history of hepatocellular carcinoma and cirrhosis, on the liver transplant list, who fell in the setting of a recent left hip fracture complaining of left hip pain. 1. Left hip pain, assessment: The patient states his range of motion and pain have improved since getting the Toradol and oxycodone. He would like to follow up with Dr. Read, who sees him routinely and tried to ambulate with a walker. His girlfriend and his daughter will be with him tonight to help monitor him and evaluate for safety. Discussed this with Dr. Dwyer, recommended waiting the official pelvis CT report and recommended row testing with a walker, make sure his pain is managed well and he is safe for discharge with followup with Dr. Read. Dr. Dwyer is agreeable to this plan, recommended continuing low-dose pain medication in the setting of liver failure , and the patient will likely benefit from outpatient physical therapy as well. The patient is aware of the recommendations as well. ADDENDUM Patient with vasovagal syncope upon discharge from ER Change consultation to History & Physical. Admit to tele, PT, Ortho eval and pain control PATIENT TIME: Greater than 45 minutes were spent doing the consultation, more than half the time spent in direct patient contact. [id number]/[facility] #: [id number] [facility]
[2018-10-16 06:04] LABS: ABS Eosinophils 0.3 10^3/ul (0-0.6); ABS Lymphocytes 0.4 10^3/ul (1.0-4.8); ABS Monocytes 0.8 10^3/ul (0-0.8); ABS Neutrophils 6.5 10^3/ul (1.5-7.7); Eosinophil % 3.6 %; Hematocrit 34 % (42-52); Hemoglobin 11.7 g/dL (14.0-18.0); Lymphocyte % 5.4 %; Mean Corpuscular HGB Conc 35 g/dL (31-36); Mean Corpuscular Hemoglobin 38 pg (27-31); Mean Corpuscular Volume 109 fL (80-94); Mean Platelet Volume 7.2 fL (7.4-10.4); Platelet Count 91 10^3/uL (150-450); Red Blood Count 3.08 10^6 /uL (4.18-5.48); Red Cell Distribution Width 16 % (10.5-15); White Blood Count 8.1 10^3/uL (3.5-10.8)
[2018-10-16 06:19] LABS: BUN/Creatinine Ratio 21.7 (8-20); Calcium 8.4 mg/dL (8.6-10.3); EGFR African American 102.6 (>60); EGFR Non-African American 84.8 (>60); Potassium 4.6 mmol/L (3.5-5.0)
[2018-10-16] MEDS: Metoprolol Succinate XL TAB* 50 MG PO SCH (07:48)
[2018-10-16] MEDS: guaiFENesin ER TAB 600 MG PO PRN ×2 (07:48→23:21)
[2018-10-16] MEDS: Furosemide TAB* 40 MG PO SCH (07:48)
[2018-10-16] MEDS: Spironolactone TAB* 25 MG PO SCH (07:48)
[2018-10-16] MEDS: Lactulose* 15 ML UDC PO SCH ×3 (07:48→20:14)
[2018-10-16] MEDS: Fluticasone NASAL SPRAY 50MCG* 16 gm SPRAY BTL BOTH NARES SCH (07:55)
[2018-10-16] MEDS: Morphine 4 MG/ML VIAL (1 ml) 4 MG/ML VIAL IV PRN ×2 (08:42→20:44)
[2018-10-16] MEDS ORDERED: HYDROmorphone INJ1* 1 MG/ML SYRINGE IV SLOW PU PRN (09:58)
[2018-10-16] MEDS ORDERED: Acetaminophen TAB* 325 MG PO STA ×2 (10:05)
[2018-10-16 10:19] LABS: Magnesium 1.8 mg/dL (1.9-2.7); Phosphorus 3.9 mg/dL (2.5-5.0)
[2018-10-16 10:38] LABS: INR 1.37 (0.82-1.09)
[2018-10-16] MEDS: RiFAXimin* 550 MG TAB PO SCH ×2 (11:25→23:15)
[2018-10-16] MEDS: Gabapentin CAP(*) 100 MG PO SCH ×2 (14:48→20:10)
[2018-10-16] MEDS: HYDROmorphone INJ1* 1 MG/ML SYRINGE IV SLOW PU PRN ×3 (14:48→23:13)
--- NOTE | 2018-10-16 16:35 | CONSULT ---
Consult Consult: Orthopedic Consultation Admission Date: 10/16/18 ORTHOPEDIC SURGEON: Dr. Read. DATE OF CONSULTATION: 10/16/18 PRIMARY CARE PHYSICIAN: Dr. Marlin Colmenares. ONCOLOGIST: Dr. Rothman. CHIEF COMPLAINT: Left hip and left rib pain. HISTORY OF PRESENT ILLNESS: Patient is a 58 year old male who follows with Dr Read for left hip arthritis requiring total hip replacement. Due to need for a liver transplant, this has been postponed. He fell weeks ago and again yesterday, resulting in rib fractures on both sides. He reports increased pain of his left hip since falling, though his ribs are his primary source of pain. He does not have a history of left hip fracture, nor does he have an acute hip fracture at this time. PAST MEDICAL HISTORY: 1. History of hepatocellular carcinoma with cirrhosis followed by Dr. Rothman. He gets routine albumin infusions and paracentesis, on the liver transplant list at [place], phone number [phone]. 2. History of left hip arthritis awaiting repair, being followed by Dr. Read. 3. Hepatitis C. 4. Osteoarthritis. 5. History of encephalopathy. PAST SURGICAL HISTORY: 1. Left meniscal repair. 2. Right ACL repair x2. 3. Right biceps repair. 4. Right knee meniscus repair. Home Medications: Metoprolol Succinate XL TAB* [Toprol XL TAB*] 100 mg PO DAILY 02/15/18 [History Confirmed 10/15/18] Furosemide TAB* [Lasix TAB*] 40 mg PO DAILY #30 tab 02/16/18 [Rx Confirmed 10/15] Fluticasone NASAL SPRAY 50MCG* [Flonase NASAL SPRAY 50MCG*] 1 spray BOTH NARES DAILY 06/03/18 [History Confirmed 10/15/18] Lactulose* 15 ml PO DAILY 06/03/18 [History Confirmed 10/15/18] Medical Marijuana 1 - 3 puff INH QPM PRN 06/03/18 [History Confirmed 10/15/18] Spironolactone TAB* [Aldactone TAB*] 25 mg PO BID 06/03/18 [History Confirmed ] guaiFENesin ER TAB [Mucinex*] 600 mg PO QPM 06/03/18 [History Confirmed 10/15/18 ] FAMILY HISTORY: Mother from CVA and heart attack, age 68. Father , age 68 from a brain aneurysm. 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 ROS: 14 point review of systems completed, positive for bilateral rib pain, left hip pain. Physical Exam: General: NAD HEENT: NCAT, EOMi Resp: regular rate and effort of breathing MSK: BL LE skin envelope intact, able to flex and extend digits, ankles, knees and hips. Negative log roll at the hips. BL UE skin envelope intact, nontender to palpation, moves extremities well. Neuro: Sensation intact to light touch distally BL LE Assessment: osteoarthritis L Hip Plan: Though patient requires a left total hip replacement, his need for liver transplant is the primary focus at this time. WBAT LLE. Orthopedics will continue to follow him as needed on an outpatient basis. Please contact orthopedics with any concerns. Discussed with Dr Read who is agreement with this plan. Vital Signs Temp 97.7 F 10/17/18 07:53 Pulse 79 10/17/18 07:53 Resp 18 10/17/18 15:52 BP 101/71 10/17/18 07:53 Pulse Ox 91 10/17/18 07:53 Intake & Output 10/17/18 10/17/18 10/18/18 06:59 18:59 06:59 Intake Total 429 600 Output Total 0 Balance 429 600 Intake: IV Fluids 14 IVPB 55 Oral 360 600 Output: Urine 0 Laboratory Last Values WBC 8.6 10^3/uL (3.5-10.8) 10/17/18 05:22 RBC 3.23 10^6 /uL (4.18-5.48) L 10/17/18 05:22 Hgb 12.3 g/dL (14.0-18.0) L 10/17/18 05:22 Hct 36 % (42-52) L 10/17/18 05:22 MCV 110 fL (80-94) H 10/17/18 05:22 MCH 38 pg (27-31) H 10/17/18 05:22 MCHC 35 g/dL (31-36) 10/17/18 05:22 RDW 16 % (10.5-15) H 10/17/18 05:22 Plt Count 95 10^3/uL (150-450) L 10/17/18 05:22 MPV 7.8 fL (7.4-10.4) 10/17/18 05:22 Neut % (Auto) 80.2 % 10/16/18 05:33 Lymph % (Auto) 5.4 % 10/16/18 05:33 [place] % (Auto) 10.4 % 10/16/18 05:33 Eos % (Auto) 3.6 % 10/16/18 05:33 Baso % (Auto) 0.4 % 10/16/18 05:33 Absolute Neuts (auto) 6.5 10^3/ul (1.5-7.7) 10/16/18 05:33 Absolute Lymphs (auto) 0.4 10^3/ul (1.0-4.8) L 10/16/18 05:33 Absolute Monos (auto) 0.8 10^3/ul (0-0.8) 10/16/18 05:33 Absolute Eos (auto) 0.3 10^3/ul (0-0.6) 10/16/18 05:33 Absolute Basos (auto) 0.0 10^3/ul (0-0.2) 10/16/18 05:33 Absolute Nucleated RBC 0.0 10^3/ul 10/16/18 05:33 Nucleated RBC % 0.0 10/16/18 05:33 INR (Anticoag Therapy) 1.36 (0.82-1.09) H 10/17/18 05:22 Sodium 134 mmol/L (135-145) L 10/17/18 05:22 Potassium 5.0 mmol/L (3.5-5.0) 10/17/18 05:22 Chloride 104 mmol/L (101-111) 10/17/18 05:22 Carbon Dioxide 28 mmol/L (22-32) 10/17/18 05:22 Anion Gap 2 mmol/L (2-11) 10/17/18 05:22 BUN 18 mg/dL (6-24) 10/17/18 05:22 Creatinine 0.91 mg/dL (0.67-1.17) 10/17/18 05:22 Est GFR ( Amer) 103.9 (>60) 10/17/18 05:22 Est GFR (Non-Af Amer) 85.9 (>60) 10/17/18 05:22 BUN/Creatinine Ratio 19.8 (8-20) 10/17/18 05:22 Glucose 111 mg/dL (70-100) H 10/17/18 05:22 POC Glucose (mg/dL) 162 mg/dL (70-100) H 10/16/18 02:55 Calcium 8.6 mg/dL (8.6-10.3) 10/17/18 05:22 Phosphorus 3.1 mg/dL (2.5-5.0) 10/17/18 05:22 Magnesium 2.1 mg/dL (1.9-2.7) 10/17/18 05:22 Total Bilirubin 3.40 mg/dL (0.2-1.0) H 10/17/18 05:22 AST 69 U/L (13-39) H 10/17/18 05:22 ALT 28 U/L (7-52) 10/17/18 05:22 Alkaline Phosphatase 139 U/L (34-104) H 10/17/18 05:22 Ammonia 93 mcmol/L (16-53) H 10/16/18 00:09 Total Protein 7.1 g/dL (6.4-8.9) 10/17/18 05:22 Albumin 2.9 g/dL (3.2-5.2) L 10/17/18 05:22 Globulin 4.2 g/dL (2-4) H 10/17/18 05:22 Albumin/Globulin Ratio 0.7 (1-3) L 10/17/18 05:22
[2018-10-16] MEDS ORDERED: Magnesium Sulfate 2 GM IV* 2 GM/50 ML BAG IVPB ONE (20:00)
--- NOTE | 2018-10-16 20:10 | PN ---
Subjective Date of Service: 10/16/18 Interval History: Pt seen and examined. Meds and labs reviewed. CC: L. hip pain ROS: Denied FRIEDMAN/dizziness, F/C, N/V, CP, SOB, increased cough, sputum production , abd pain, diarrhea, constipation, dysuria, throat pain, and new skin lesions. The rest of the 14 point ROS are unremarkable. PHYSICAL EXAM: GEN APPEARANCE: Lethargic, arousable, and appropriate, not in acute distress HEENT: NC/AT, PERRLA, moist oral mucosa, (-) throat erythema NECK: Soft, supple, (-) cervical LAD, (-)JVD HEART: S1S2 WNL, RRR, No MRG CHEST: CTA, BL, GAE, No W/R/R ABD: Soft, ND/NT, NABS 4x Q EXT: No C/C/E SKIN: Warm to touch PSYCH: No active psychosis, hallucinations, depression, SI/HI Objective Active Medications: Acetaminophen (Tylenol Tab*) 650 mg PO BID MICHAEL Al Hydrox/Mg Hydrox/Simethicone (Maalox Plus*) 30 ml PO Q6H PRN PRN Reason: INDIGESTION Fluticasone Propionate (Flonase Nasal [place] 50mcg*) 1 spray BOTH NARES DAILY [facility] Last Admin: 10/16/18 07:55 Dose: 1 spray Furosemide (Lasix Tab*) 40 mg PO DAILY [facility] Last Admin: 10/16/18 07:48 Dose: 40 mg Gabapentin (Neurontin Cap(*)) 200 mg PO TID MICHAEL Last Admin: 10/16/18 14:48 Dose: 200 mg Guaifenesin (Mucinex*) 600 mg PO QPM PRN PRN Reason: COUGH Last Admin: 10/16/18 07:48 Dose: 600 mg Hydromorphone HCl (Dilaudid Inj1s*) 0.5 mg IV SLOW PU Q4H PRN PRN Reason: PAIN Last Admin: 10/16/18 18:40 Dose: 0.5 mg Magnesium Sulfate (Magnesium Sulfate 2 Gm Iv*) 2 gm in 50 mls @ 50 mls/hr IVPB ONCE ONE Stop: 10/16/18 20:59 Lactulose (Lactulose*) 15 ml PO TID [facility] Last Admin: 10/16/18 14:47 Dose: 15 ml Metoprolol Succinate (Toprol Xl Tab*) 50 mg PO DAILY [facility] Last Admin: 10/16/18 07:48 Dose: 50 mg Morphine Sulfate (Morphine 4 Mg/Ml Vial (1 Ml)) 3 mg IV Q4HR PRN PRN Reason: PAIN Last Admin: 10/16/18 08:42 Dose: 3 mg (Medical Marijuana 2 (Puff)) 2 puff INH QPM PRN PRN Reason: PAIN Ondansetron HCl (Zofran Inj*) 4 mg IV Q4H PRN PRN Reason: NAUSEA/VOMITING Oxycodone HCl (Roxycodone Tab*) 5 mg PO Q6H PRN PRN Reason: PAIN Last Admin: 10/16/18 03:06 Dose: 5 mg Rifaximin (Xifaxan*) 550 mg PO BID [facility] Last Admin: 10/16/18 11:25 Dose: 550 mg Spironolactone (Aldactone Tab*) 25 mg PO DAILY [facility] Last Admin: 10/16/18 07:48 Dose: 25 mg Vital Signs - 8 hr 10/16/18 10/16/18 10/16/18 14:48 14:55 15:08 Temperature 96.7 F Pulse Rate 68 Respiratory 16 16 16 Rate Blood Pressure 100/59 (mmHg) O2 Sat by Pulse 91 Oximetry 10/16/18 10/16/18 10/16/18 17:23 17:24 18:40 Temperature Pulse Rate Respiratory 16 16 15 Rate Blood Pressure (mmHg) O2 Sat by Pulse Oximetry Oxygen Devices in Use Now: Nasal Cannula Result Diagrams: 10/16/18 05:33 10/16/18 05:33 Assess/Plan/Problems-Billing Assessment: - Patient Problems (1) Left hip pain Current Visit: Yes Status: Acute Code(s): M25.552 - PAIN IN LEFT HIP SNOMED Code(s): 54690672 Comment: -Placed pt on Gabapentin and Tylenol 650 BID (do NOT exceed 2g/day TDD of Tylenol due to cirhhosis) -Continue PRN pain meds (2) Compensated HCV cirrhosis Current Visit: Yes Status: Acute Code(s): K74.69 - OTHER CIRRHOSIS OF LIVER ; B19.20 - UNSPECIFIED VIRAL HEPATITIS C WITHOUT HEPATIC COMA SNOMED Code(s): 730660166 Comment: -Reportedly treatment raudel w/plans of treatment before transplant -Reportedly have MELD of 28 about two weeks ago; MELD score this admission is 14 and pt appears to be otherwise stable -Transplant coordinators at [place] (Angelique Youngblood, and Meg): [phone] -On transplant list at [facility] -Given pain meds being added and pt lethargic w/hx of hepatic encephalopathy, will add Xifaxan to regimen as any sedatives can further worsen hepatic encephalopathy and NSAIDs may induce hepatorenal syndrome---pt and family aware and was told of same by [place] (3) Hepatic encephalopathy Current Visit: Yes Status: Acute Code(s): K72.90 - HEPATIC FAILURE, UNSPECIFIED WITHOUT COMA SNOMED Code(s): 65422281 Comment: -No evidence of asterexis today -Careful titration of pain meds vs. risk of encephalopathy -Please see above discussion (4) Hepatocellular carcinoma Current Visit: Yes Status: Acute Code(s): C22.0 - LIVER CELL CARCINOMA SNOMED Code(s): 319323628 Comment: -Defer w/outpt F/U w/Dr. Rothman (5) DVT prophylaxis Current Visit: Yes Status: Acute Code(s): Z29.9 - ENCOUNTER FOR PROPHYLACTIC MEASURES, UNSPECIFIED SNOMED Code(s): 725413225 Comment: -Place pt on Heparin SQ q12H Status and Disposition: -As above -For PT eval
[2018-10-16] MEDS: Acetaminophen TAB* 325 MG PO SCH (20:48)
[2018-10-16] MEDS: Heparin VIAL(*) 5000 UNITS/ML VIAL (FIVE THOUSAND) SUBCUT SCH (20:53)
[2018-10-16] MEDS: Ondansetron INJ* 2 MG/ML VIAL IV PRN (23:21)
[2018-10-17] MEDS: Morphine 4 MG/ML VIAL (1 ml) 4 MG/ML VIAL IV PRN ×3 (01:43→12:34)
[2018-10-17 06:10] LABS: INR 1.36 (0.82-1.09)
[2018-10-17 06:11] LABS: Hematocrit 36 % (42-52); Hemoglobin 12.3 g/dL (14.0-18.0); Mean Corpuscular HGB Conc 35 g/dL (31-36); Mean Corpuscular Hemoglobin 38 pg (27-31); Mean Corpuscular Volume 110 fL (80-94); Mean Platelet Volume 7.8 fL (7.4-10.4); Platelet Count 95 10^3/uL (150-450); Red Blood Count 3.23 10^6 /uL (4.18-5.48); Red Cell Distribution Width 16 % (10.5-15); White Blood Count 8.6 10^3/uL (3.5-10.8)
[2018-10-17 06:23] LABS: Albumin 2.9 g/dL (3.2-5.2); Albumin/Globulin Ratio 0.7 (1-3); BUN/Creatinine Ratio 19.8 (8-20); Calcium 8.6 mg/dL (8.6-10.3); EGFR African American 103.9 (>60); EGFR Non-African American 85.9 (>60); Globulin 4.2 g/dL (2-4); Magnesium 2.1 mg/dL (1.9-2.7); Phosphorus 3.1 mg/dL (2.5-5.0); Total Bilirubin 3.4 mg/dL (0.2-1.0); Total Protein 7.1 g/dL (6.4-8.9)
[2018-10-17] MEDS: RiFAXimin* 550 MG TAB PO SCH ×2 (09:07→21:48)
[2018-10-17] MEDS: Metoprolol Succinate XL TAB* 50 MG PO SCH (09:07)
[2018-10-17] MEDS: Gabapentin CAP(*) 100 MG PO SCH ×3 (09:08→21:45)
[2018-10-17] MEDS: Acetaminophen TAB* 325 MG PO SCH ×2 (09:08→21:44)
[2018-10-17] MEDS: Fluticasone NASAL SPRAY 50MCG* 16 gm SPRAY BTL BOTH NARES SCH (09:09)
[2018-10-17] MEDS: Spironolactone TAB* 25 MG PO SCH (09:09)
[2018-10-17] MEDS: Furosemide TAB* 40 MG PO SCH (09:10)
[2018-10-17] MEDS: Heparin VIAL(*) 5000 UNITS/ML VIAL (FIVE THOUSAND) SUBCUT SCH ×2 (09:10→21:47)
[2018-10-17] MEDS: Lactulose* 15 ML UDC PO SCH ×3 (09:12→21:47)
[2018-10-17] MEDS: HYDROmorphone INJ1* 1 MG/ML SYRINGE IV SLOW PU PRN (10:03)
--- NOTE | 2018-10-17 16:29 | PN ---
Subjective Date of Service: 10/17/18 Interval History: Patient seen earlier this morning in his room, he was complaining of increase pain and he has been getting both IV morphine and IV Dilaudid for his chest pain on both side worse on the right. I did spend time in the room with the patient explained the risk and benefit for pain medications and unfortunately given his underlying diagnosis of hepatocellular carcinoma and narcotic it may trigger acute hepatic encephalopathy and deterioration of his conditions. also I encourage to utilize his incentive spirometer ( and I educated him at bedside on proper technique) to avoid pneumonaie. He did not think he can manage at home by himself and he wanted time to arrange for family to be with him when he is discharged. He agreed to come off his IV narcotic and will transition to mild dose of oxycodone along with bid dose of Tylenol. He was due for albumin infusion at his oncologist office today however, this can be arrange to be done oupatient next week. Also given his compromised respiratory status as is now ( due to his multiple ribs fractures) I will reassess in am and if he continues to be in extreme discomfort I may pursue therapeutic paracentesis as it will help alleviate the pressure off his diaphragmatic respiratory muscle to help ease his breathing. Past Medical History: Unchanged from Admission Objective Active Medications: Acetaminophen (Tylenol Tab*) 650 mg PO BID [facility] Last Admin: 10/17/18 09:08 Dose: 650 mg Al Hydrox/Mg Hydrox/Simethicone (Maalox Plus*) 30 ml PO Q6H PRN PRN Reason: INDIGESTION Fluticasone Propionate (Flonase Nasal [place] 50mcg*) 1 spray BOTH NARES DAILY [facility] Last Admin: 10/17/18 09:09 Dose: 1 spray Furosemide (Lasix Tab*) 40 mg PO DAILY [facility] Last Admin: 10/17/18 09:10 Dose: 40 mg Gabapentin (Neurontin Cap(*)) 200 mg PO TID [facility] Last Admin: 10/17/18 15:52 Dose: 200 mg Guaifenesin (Mucinex*) 600 mg PO QPM PRN PRN Reason: COUGH Last Admin: 10/16/18 23:21 Dose: 600 mg Heparin Sodium (Porcine) (Heparin Vial(*)) 5,000 units SUBCUT Q12HR [facility] Last Admin: 10/17/18 09:10 Dose: 5,000 units Lactulose (Lactulose*) 15 ml PO TID [facility] Last Admin: 10/17/18 15:53 Dose: 15 ml Metoprolol Succinate (Toprol Xl Tab*) 50 mg PO DAILY [facility] Last Admin: 10/17/18 09:07 Dose: 50 mg (Medical Marijuana 2 (Puff)) 2 puff INH QPM PRN PRN Reason: PAIN Ondansetron HCl (Zofran Inj*) 4 mg IV Q4H PRN PRN Reason: NAUSEA/VOMITING Last Admin: 10/16/18 23:21 Dose: 4 mg Oxycodone HCl (Roxycodone Tab*) 5 mg PO Q6H PRN PRN Reason: PAIN Last Admin: 10/16/18 03:06 Dose: 5 mg Rifaximin (Xifaxan*) 550 mg PO BID [facility] Last Admin: 10/17/18 09:07 Dose: 550 mg Spironolactone (Aldactone Tab*) 25 mg PO DAILY [facility] Last Admin: 10/17/18 09:09 Dose: 25 mg Vital Signs - 8 hr 10/17/18 10/17/18 10/17/18 09:08 10:03 12:19 Respiratory 16 18 18 Rate 10/17/18 10/17/18 10/17/18 12:34 13:30 15:52 Respiratory 18 18 18 Rate Oxygen Devices in Use Now: Nasal Cannula Appearance: Awake, alert. moderate distress from pain Eyes: No Scleral Icterus, - - EOMI Ears/Nose/Mouth/Throat: NL Teeth, Lips, Gums, Mucous Membranes Moist Neck: NL Appearance and Movements; NL JVP, Trachea Midline Respiratory: Symmetrical Chest Expansion and Respiratory Effort, - - shallow breathing and guarded on deep inspiration. diminished at bases bilateral. tender anteriolaterla chest wall right greater than left Cardiovascular: NL Sounds; No Murmurs; No JVD Abdominal: NL Sounds; No Tenderness; No Distention Extremities: No Edema Neurological: Alert and Oriented x 3 Result Diagrams: 10/17/18 05:22 10/17/18 05:22 Assess/Plan/Problems-Billing Assessment: 58 y/o male admitted for vasovagal due to pain (ribs fracture) and orthostatic with known history of hepatocellular carcinoma on the liver transplant list - Patient Problems (1) Rib fractures Current Visit: Yes Status: Acute Code(s): S22.39XA - FRACTURE OF ONE RIB, UNSP SIDE, INIT FOR CLOS FX SNOMED Code(s): 06045090 Comment: - S/p Fall with fracture of left 8th + 9th ribs along with older fracture of his rigth 5th and 6th fracture. - encouraged incentive spirometer and decreased pain meds. D/c IV dilaudid and IV morphine, PRN tyelnol gabaentin 200 mg tid and oxycodone as ordered only. - I will reassess response and pain in am. If he remains very guarded with deep breathing I may consider paracentesis to help alleviate some of the abdominal compartment pressure onto his diaphragm which in turn will encourage deep breathing. (2) Hepatocellular carcinoma Current Visit: Yes Status: Acute Code(s): C22.0 - LIVER CELL CARCINOMA SNOMED Code(s): 332404962 Comment: - Defer w/outpt F/U w/Dr. Rothman - On transplant list at [facility] - Transplant coordinators at [place] (Angelique Youngblood and Patty): [phone] - I agree with adding Xifaxan to his regimen as he is at high risk of develloping/worsening hepatic encephalopathy due to opiate therapy, Also I agree that NSAIDs may induce hepatorenal syndrome. - Continue lactulose 15 ml tid (3) Ascites Current Visit: Yes Status: Acute Code(s): R18.8 - OTHER ASCITES SNOMED Code(s): 183186347 Comment: - Currently being managed with outpatient albumin infusion at his oncologist office - Continue his lasix 40 mg daily and aldactone 25 mg daily (decrease from 25 mg bid due to his orthostatic and vasovagal) - I will reassess response and pain in am. If he remains very guarded with deep breathing I may consider paracentesis to help alleviate some of the abdominal compartment pressure onto his diaphragm which in turn will encourage deep breathing. (4) Compensated HCV cirrhosis Current Visit: Yes Status: Acute Code(s): K74.69 - OTHER CIRRHOSIS OF LIVER ; B19.20 - UNSPECIFIED VIRAL HEPATITIS C WITHOUT HEPATIC COMA SNOMED Code(s): 819393031 Comment: - Reportedly treatment raudel w/plans of treatment before transplant , On transplant list at [facility] - Transplant coordinators at [place] (Angelique Youngblood and Patty): [phone] - I agree with adding Xifaxan to his regimen as he is at high risk of develloping/worsening hepatic encephalopathy due to opiate therapy, Also I agree that NSAIDs may induce hepatorenal syndrome. - Continue lactulose 15 ml tid (5) DVT prophylaxis Current Visit: Yes Status: Acute Code(s): Z29.9 - ENCOUNTER FOR PROPHYLACTIC MEASURES, UNSPECIFIED SNOMED Code(s): 086735082 Comment: - Place pt on Heparin SQ q12H Status and Disposition: -As above -For PT eval
[2018-10-17] MEDS: oxyCODONE TAB* 5 MG TAB PO PRN (19:31)
[2018-10-17] MEDS: guaiFENesin ER TAB 600 MG PO PRN (19:33)
[2018-10-17] MEDS: Ondansetron INJ* 2 MG/ML VIAL IV PRN (22:45)
[2018-10-18] MEDS: Heparin VIAL(*) 5000 UNITS/ML VIAL (FIVE THOUSAND) SUBCUT SCH (09:05)
[2018-10-18] MEDS: Lactulose* 15 ML UDC PO SCH ×2 (09:06→13:57)
[2018-10-18] MEDS: Fluticasone NASAL SPRAY 50MCG* 16 gm SPRAY BTL BOTH NARES SCH (09:06)
[2018-10-18] MEDS: Acetaminophen TAB* 325 MG PO SCH (09:07)
[2018-10-18] MEDS: oxyCODONE TAB* 5 MG TAB PO PRN ×2 (09:07→15:22)
[2018-10-18] MEDS: Metoprolol Succinate XL TAB* 50 MG PO SCH (09:07)
[2018-10-18] MEDS: Gabapentin CAP(*) 100 MG PO SCH ×2 (09:07→13:56)
[2018-10-18] MEDS: Furosemide TAB* 40 MG PO SCH (09:08)
[2018-10-18] MEDS: RiFAXimin* 550 MG TAB PO SCH (09:08)
[2018-10-18] MEDS: Spironolactone TAB* 25 MG PO SCH (09:08)
[2018-10-18 17:47] VITALS: BP 110/68
--- NOTE | 2018-10-18 22:15 | DS ---
CC: Dr. Ellie Rothman; Dr. Linden Read; Dr. Marlin Colmenares DISCHARGE SUMMARY: DATE OF ADMISSION: 10/15/18 DATE OF DISCHARGE: 10/18/18 FINAL DISCHARGE DIAGNOSES: 1. Bilateral rib fracture, two on the left, #8 and #9, acute and subacute on the right #5 and #6. 2. Hepatocellular carcinoma. 3. Ascites. 4. Compensated hepatitis C virus cirrhosis. HOSPITAL COURSE: The patient was admitted to [facility] on 10/15/18 after he was evaluate d in the emergency room for chest pain after a fall, which was found to have rib fracture #8 and #9 o n the left. He was monitored in the emergency room and the plan was to discharge him home from the mergency room; however, the patient was very weak, he felt lightheadedness prior to the release from the emergency room, slumped over on his wheelchair prior to discharge. Therefore, discharge was cance lled and was admitted to the hospitalist service for vasovagal syncope. The patient was seen by me romelia dial a daily basis, first encounter was on 10/17/18. I saw him and evaluated in the emergency room. He was complaining of severe pain with a cough and breathing. At that time, he was still taking IV Dil audid and IV morphine as scheduled around the clock. I explained to the patient the importance of mi nimizing his narcotic, educated him on incentive spirometer, and realistically to accept certain degr ee of discomfort in light of his diagnosis of hepatocellular carcinoma as the narcotic may lead to wo rsened hepatic encephalopathy, confusion, and lethargy. He was very pleased. He was in agreement. He agreed with discontinuation of Dilaudid and morphine, and I elected to keep him an extra day until 10/18/09 to see if his pain control is well adequate with Tylenol and a low dose of oxycodone. He w as seen this morning and this afternoon. He was actually doing a lot better than yesterday. He verb ally expressed his improvement. He was able to use incentive spirometer up to 1500 cc. He was happy and adequate with the pain control that he is getting with the oxycodone, tolerating well, and mainta ining well. Therefore, with the above plan, I deemed the patient is stable for discharge back to [facility]. PHYSICAL EXAM ON DISCHARGE: Temperature 98.1, pulse 75, respiratory rate 16, saturation anywhere bet ween 94% and 91% on room air, blood pressure 96/65. Generally, he is awake, alert, pleasant, follows command, slightly uncomfortable with movement and deep breath and coughing. Head and Neck: Normocep halic, atraumatic. Lungs: Good airflow. He is diminished with guarded and splinting when he takes a deep breath mainly from a left chest wall pain. Cardiovascular: S1, S2. Regular rate and rhythm. Abdomen: Positive bowel sounds, soft, nontender. His abdomen is distended, has mild ascitic fluid wave. Extremities: There is no pedal edema. DISCHARGE MEDICATIONS: The patient will be discharged back on his home regimen with few addition: 1. Gabapentin 200 mg 3 times a day, I gave him 21 cap for 7 days only. 2. Tylenol twice a day. 3. Medical marijuana, which he takes at home. No prescription provided. 4. Metoprolol was decreased to 50 mg down from 100 giving his hypotension and vasovagal. 5. Oxycodone 5 mg every 6 hours for 7 days, 21 tab, not to exceed 4. 6. He was placed on Xifaxan 550 mg twice a day while used narcotic by my previous colleague after di scussion with the liver transplant team. 7. Spironolactone 25 mg that was decreased from 50 mg. Otherwise, continue the remaining of his medications, otherwise unremarkable, which are: 1. Lasix 40 mg every day. 2. Lactulose 15 mL 3 times a day. 3. Guaifenesin 600 daily. 4. Flonase daily. DISCHARGE INSTRUCTIONS: The patient to follow up with his liver transplant clinic as scheduled. Follow up with his primary care, Dr. Marlin Colmenares, in 1 to 2 weeks. Follow up with Dr. Linden Read, Orthopedic, p.r.n. Follow up with Dr. Ellie Rothman in 4 to 7 day s for outpatient continuation of his albumin infusion and p.r.n. paracentesis if needed. DISCHARGE CONDITION: Stable. DISCHARGE DISPOSITION: Home. [id number]/[facility] #: [id number]
== END 2018-10-18 17:28 | disposition home or self-care (01) ==
LOC: ED 18:20 → MEDTELE 10-16 00:32
PROVIDERS: ADMIT Pediatrics; ATTEND Internal Medicine
DX: S22.43XA Multiple fractures of ribs, bilateral, initial encounter for closed fracture (principal); W19.XXXA Unspecified fall, initial encounter; Y92.9 Unspecified place or not applicable; C22.0 Liver cell carcinoma; B19.20 Unspecified viral hepatitis C without hepatic coma; R18.8 Other ascites; M25.559 Pain in unspecified hip; K74.69 Other cirrhosis of liver
CPT/HCPCS: 36415; 70450; 71046; 71250; 74176; 80048; 80053; 82140; 83735; 84100; 85025; 85027; 85610; 93005; 96365; 96372; 96374; 96375; 99283; A9270-GY; G0378; J1170; J1644; J1885; J2270; J2405; J3475

== ENCOUNTER 2018-11-04 15:51 | Observation (INO) | payer OTHER ==
--- NOTE | 2018-11-04 17:30 | ED ---
Shortness of Breath - HPI Summary HPI Summary: The patient is a 58 y/o M presenting to [facility] with a chief complaint of SOB starting this morning at 0400. He states that he was sleeping and woke up with SOB, and he was concerned due to fluid buildup in the abdomen that is consistent with liver cancer hx. Currently, the dyspnea is mild at rest. He additionally c/o distended abdomen with edema, left chest wall pain. He had a paracentesis last week and the week prior, with about 2L fluid drained each time , but he states that usually it's about 4L drained. He denies fever, chills, erythema of eyes, sore throat, CP, SOB, cough, abdominal pain, N/V, dysuria, hematuria, myalgia, rash, and dizziness. He has had radiation treatments, but no chemotherapy. He also notes that he sleeps on both the couch and his bed with one pillow. Hx of jaundice. PCP is Dr. Rothman, who suggested he come here. - History of Current Complaint Chief Complaint: EDShortnessOfBreath Time Seen by Provider: 11/04/18 17:11 Hx Obtained From: Patient Onset/Duration: Sudden Onset, Still Present Timing: Constant Current Severity: Mild Aggravating Factors: Nothing Alleviating Factors: Nothing Associated Signs & Symptoms: Edema - abdominal with distension - Allergy/Home Medications Allergies/Adverse Reactions: Allergies Allergy/AdvReac Type Severity Reaction Status Date / Time hydrocodone AdvReac Mild GI Upset Verified 11/04/18 17:45 Home Medications: Home Medications Furosemide TAB* [Lasix TAB*] 40 mg PO DAILY 11/04/18 [History Confirmed 11/04/18 ] PMH/Surg Hx/FS Hx/Imm Hx Endocrine/Hematology History: Denies: Hx Diabetes Cardiovascular History: Reports: Hx Hypertension Denies: Hx Pacemaker/ICD GI History: Reports: Hx Jaundice, Hx Ulcer - 20 years ago History: Reports: Hx Kidney Stones - 20 years ago Denies: Hx Renal Disease Musculoskeletal History: Reports: Other Musculoskeletal History Sensory History: Reports: Hx Contacts or Glasses Denies: Hx Hearing Aid Opthamlomology History: Reports: Hx Contacts or Glasses Psychiatric History: Denies: Hx Panic Disorder - Surgical History Surgery Procedure, Year, and Place: 01/04/18 - L KNEE - ARTHROSCOPIC. Rt KNEE - - 3 TIMES - ACL (TWICE) AND MMT . Rt ARM - BICEP TENDON ATTEMPTED REPAIR Hx Anesthesia Reactions: No Infectious Disease History: No Infectious Disease History: Reports: Hx Hepatitis - hep C Denies: Traveled Outside the [place] in Last 30 Days - Family History Known Family History: Positive: Hypertension Negative: Cardiac Disease - Social History Alcohol Use: None Alcohol Amount: couple one nite then none for 2 weeks Hx Substance Use: Yes Substance Use Type: Reports: Marijuana Substance Use Comment - Amount & Last Used: medical Hx Tobacco Use: Yes Smoking Status (MU): Former Smoker Type: Cigarettes Amount Used/How Often: 10 per week Review of Systems Negative: Fever, Chills Negative: Erythema Negative: Sore Throat Positive: Chest Pain - left chest wall. Negative: Palpitations Positive: Shortness Of Breath. Negative: Cough Positive: Other - abdominal distension. Negative: Abdominal Pain, Vomiting, Nausea Negative: dysuria, hematuria Positive: Edema - abdominal. Negative: Myalgia Negative: Rash Neurological: Other - NEGATIVE: dizziness All Other Systems Reviewed And Are Negative: Yes Physical Exam - Summary Physical Exam Summary: Constitutional: Well-developed, Well-nourished, Alert. (-) Distressed Skin: Warm, Dry HENT: Normocephalic; Atraumatic Eyes: Conjunctiva normal Neck: Musculoskeletal ROM normal neck. (-) JVD, (-) Stridor, (-) Tracheal deviation Cardio: Rhythm regular, rate normal, Heart sounds normal; Intact distal pulses; The pedal pulses are 2+ and symmetric. Radial pulses are 2+ and symmetric. (-) Murmur Pulmonary/Chest wall: Effort normal. (-) Respiratory distress, (-) Wheezes, (-) Rales, (+) Mild crackles in the bases Abd: Soft, (+) tense abdominal ascites with tenderness, (+) Distension, (-) Guarding, (-) Rebound Musculoskeletal: (-) Edema Lymph: (-) Cervical adenopathy Neuro: Alert, Oriented x3 Psych: Mood and affect Normal Triage Information Reviewed: Yes Vital Signs On Initial Exam: Initial Vitals Temp Pulse Resp BP Pulse Ox 99.2 F 92 18 107/78 92 11/04/18 15:53 11/04/18 15:53 11/04/18 15:53 11/04/18 15:53 11/04/18 15:53 Vital Signs Reviewed: Yes Diagnostics - Vital Signs Vital Signs Temp Pulse Resp BP Pulse Ox 11/04/18 15:53 99.2 F 92 18 107/78 92 - Laboratory Result Diagrams: 11/04/18 17:48 11/04/18 17:48 Lab Statement: Any lab studies that have been ordered have been reviewed, and results considered in the medical decision making process. - Radiology CXR Radiology Interpretation Completed By: Radiologist Summary of Radiographic Findings: No evidence for active cardiopulmonary disease. ED physician has reviewed this report. - EKG 1604 Cardiac Rate: NL - 83 BPM EKG Rhythm: Sinus Rhythm Summary of EKG Findings: No STEMI. Course/Dx - Course Course Of Treatment: The patient is a 58 y/o M presenting to [facility] with a chief complaint of SOB starting this morning at 0400, causing him to wake up. He has hx of liver cancer, and has been getting a paracentesis almost every week to drain fluid off of his abdomen. He additionally c/o distended abdomen with edema , left chest wall pain. He had a paracentesis last week and the week prior, with about 2L fluid drained each time, but he states that usually its about 4L drained. He denies fever, chills, erythema of eyes, sore throat, CP, SOB, cough , abdominal pain, N/V, dysuria, hematuria, myalgia, rash, and dizziness. PCP is Dr. Rothman. Upon physical exam, the patient exhibits tense abdominal ascites with tenderness and mild crackles in the bases. Blood work reveals RBC of 3.64, hgb of 13.5, hct of 40, MCV of 110, MCH of 37, RDW of 16, plt count of 136, MPV of 7.1, abs lymphs of 0.4, sodium of 133, chloride of 100, glucose of 111, total bilirubin of 3.20, AST of 76, alkaline phosphatase of 223, albumin of 2.9 , and albumin/globulin ratio of 0.7 without any other significant abnormality. EKG shows NSR at [address] Rothman recommends admission with medications and radiology intervention paracentesis. I also discussed the case with Dr. Boogie; she recommended admission and paracentesis during admission. I also discussed with Dr. amezcua, surgery, he advised surgery no longer provides that service. I also spoke with Dr. Lopez on administrative level and radiology will assist in paracentesis tomorrow if needed. The patient is diagnosed with hypoxemia and abd ascites. He agrees with plan for admission. Thirty-five minutes of CCT. - Diagnoses Provider Diagnoses: Ascites of liver, Hypoxemia - Physician Notifications Discussed Care of Patient With: Ethel Boogie Instructed by Provider To: Other - Dr. Rothman recommends admission with medications and radiology intervention paracentesis. I also discussed the case with Dr. Boogie; she recommended admission and paracentesis during admission. I also discussed with Dr. Amezcua, surgery, he advised surgery no longer provides that service. I also spoke with Dr. Lopez on administrative level and radiology will assist in paracentesis tomorrow if needed. - Critical Care Time Critical Care Time: 30-74 min - 35 minutes Discharge - Sign-Out/Discharge Documenting (check all that apply): Patient Departure - Patient is accepted for admission. Patient Received Moderate/Deep Sedation with Procedure: No - Discharge Plan Condition: Stable Disposition: ADMITTED TO [facility] Referrals: Marlin Colmenares MD [Primary Care Provider] - - Billing Disposition and Condition Condition: STABLE Disposition: Admitted to [facility] - Attestation Statements Document Initiated by Scribe: Yes Documenting Scribe: Dara Scott Provider For Whom Scribe is Documenting (Include Credential): Dr. Clint Whitehead MD Scribe Attestation: Dara Zhang, scribed for Dr. Clint Whitehead MD on 11/04/18 at 2008. Status of Scribe Document: Ready
[2018-11-04 18:03] LABS: ABS Basophils 0.1 10^3/ul (0-0.2); ABS Eosinophils 0.6 10^3/ul (0-0.6); ABS Lymphocytes 0.4 10^3/ul (1.0-4.8); ABS Monocytes 0.8 10^3/ul (0-0.8); ABS Neutrophils 5.2 10^3/ul (1.5-7.7); Eosinophil % 8.6 %; Hematocrit 40 % (42-52); Hemoglobin 13.5 g/dL (14.0-18.0); Lymphocyte % 6.1 %; Mean Corpuscular HGB Conc 34 g/dL (31-36); Mean Corpuscular Hemoglobin 37 pg (27-31); Mean Corpuscular Volume 110 fL (80-94); Mean Platelet Volume 7.1 fL (7.4-10.4); Nucleated Red Blood Cells % 0.1; Platelet Count 136 10^3/uL (150-450); Red Blood Count 3.64 10^6 /uL (4.18-5.48); Red Cell Distribution Width 16 % (10-15); White Blood Count 7.1 10^3/uL (3.5-10.8)
[2018-11-04 18:18] LABS: Albumin 2.9 g/dL (3.2-5.2); Albumin/Globulin Ratio 0.7 (1-3); BUN/Creatinine Ratio 17.3 (8-20); Calcium 8.9 mg/dL (8.6-10.3); EGFR African American 129.9 (>60); EGFR Non-African American 107.3 (>60); Potassium 4.4 mmol/L (3.5-5.0); Total Bilirubin 3.2 mg/dL (0.2-1.0); Total Protein 6.9 g/dL (6.4-8.9)
[2018-11-04] MEDS ORDERED: Acetaminophen TAB* 325 MG PO PRN (19:26)
[2018-11-04] MEDS ORDERED: MEDICAL MARIJUANA INH PRN (19:29)
[2018-11-04] MEDS ORDERED: Morphine INJ* 2 MG/ML 1 ML SYRINGE (TWO MG - NEW SYRINGE VERSION) IV ONE (20:27)
[2018-11-04] MEDS ORDERED: LORazepam TAB(*) 0.5 MG PO PRN (20:27)
[2018-11-04] MEDS: Morphine INJ* 2 MG/ML 1 ML SYRINGE (TWO MG - NEW SYRINGE VERSION) IV PRN (21:59)
[2018-11-04] MEDS: RiFAXimin* 550 MG TAB PO SCH (22:55)
[2018-11-04] MEDS ORDERED: guaiFENesin ER TAB 600 MG PO SCH (23:59)
[2018-11-05] MEDS: oxyCODONE TAB* 5 MG TAB PO PRN ×2 (00:20→08:42)
[2018-11-05] MEDS: Morphine INJ* 2 MG/ML 1 ML SYRINGE (TWO MG - NEW SYRINGE VERSION) IV PRN (04:16)
[2018-11-05] MEDS: RiFAXimin* 550 MG TAB PO SCH (08:34)
[2018-11-05] MEDS ORDERED: Metoprolol Succinate XL TAB* 50 MG PO SCH (09:00)
[2018-11-05] MEDS ORDERED: Fluticasone NASAL SPRAY 50MCG* 16 gm SPRAY BTL BOTH NARES SCH (09:00)
[2018-11-05] MEDS ORDERED: Furosemide TAB* 40 MG PO SCH (09:00)
[2018-11-05] MEDS ORDERED: Lactulose* 15 ML UDC PO SCH (09:00)
[2018-11-05] MEDS ORDERED: Spironolactone TAB* 25 MG PO SCH (09:00)
[2018-11-05 10:12] VITALS: BP 109/69
--- NOTE | 2018-11-05 17:50 | HP ---
CC: Dr. Marlin Colmenares * ADMISSION HISTORY AND PHYSICAL: DATE OF ADMISSION: 11/04/18 PRIMARY CARE PROVIDER: Dr. Marlin Colmenares. ATTENDING PHYSICIAN: Dr. Cristina Palacios.* (DICTATED BY NICOLE OSORIO NP ) CHIEF COMPLAINT: Shortness of breath. HISTORY OF PRESENT ILLNESS: Mr. Collins is a 58-year-old male patient with a history of liver failure. The patient has a past medical history significant for hepatocellular carcinoma and is currently pending liver transplant at [facility]. The patient does require paracentesis on a regular basis, which he has been getting with oncology service up to this point. The patient was having some progressive shortness of breath; however, there was some discrepancy over where he can currently have his paracentesis done. He did call Dr. Ellie Rothman's office where he has been getting paracentesis and routine albumin infusions and then there was also some times where he was getting them done through surgical service; however, with some changes in his plan of care, the patient was unable to obtain paracentesis. He was then subsequently referred to the emergency department for evaluation and possible admission for a paracentesis given his progressive shortness of breath. The patient was evaluated in the emergency department. He was clinically stable. He was not having any desaturations; however, he was still not able to have a paracentesis performed in the emergency department. He was referred to hospitalist service for observation, admission and plan for paracentesis in the morning. Dr. Barcenas initially saw the patient for hospitalist service and reached out to Dr. Rip Morgan who agreed that they would plan for CT- guided paracentesis on the morning of 11/05/18. PAST MEDICAL HISTORY: Again significant for hepatocellular carcinoma with cirrhosis, followed at [facility] at [facility]; history of recent left hip fracture; history of hepatitis C; osteoarthritis; hepatic encephalopathy. PAST SURGICAL HISTORY: History of left meniscal repair, right ACL repair, right biceps tendon repair and right knee meniscus repair. HOME MEDICATIONS: Include: 1. Lactulose 15 mL 3 times a day. 2. Spironolactone 25 mg p.o. daily. 3. Toprol-XL 100 mg p.o. daily. 4. Medical marijuana as needed. 5. Lasix 40 mg p.o. daily. 6. Mucinex 600 mg p.o. daily. 7. Oxycodone 5 mg p.o. q.6 hours as needed. 8. Rifaximin 550 mg p.o. b.i.d. 9. Guaifenesin 600 mg in the evening. 10. Tylenol 650 mg p.o. b.i.d. as needed. ALLERGIES: The patient has allergy to HYDROCODONE. FAMILY HISTORY: Mother with CVA and coronary artery disease. Father with brain aneurysm. SOCIAL HISTORY: The patient does have a history of tobacco abuse. Denies any current alcohol use. Denies any illicit drug use. REVIEW OF SYSTEMS: The patient states he does feel weak and short of breath, but denies any chest pain. No nausea, no vomiting. Does feel some abdominal tightness, but no overt pain. Denies any urinary complaints, no blood, no further bowel complaints. Does have some generalized pain in the hip and joints. No further complaints noted. PHYSICAL EXAMINATION GENERAL: Reveals a frail-appearing gentleman, in no acute distress. VITAL SIGNS: Blood pressure 111/63, heart rate 92, respiratory rate 16, O2 saturation 100% on room air with a temperature of 98.1. HEENT: The patient is atraumatic, normocephalic. PERRLA. Nonicteric sclerae. Oral mucosa is moist. Tongue is midline. NECK: Supple, nontender. No JVD noted. No carotid bruits auscultated. LUNGS: Clear bilaterally to auscultation with no wheezing, rhonchi or rales. CARDIOVASCULAR: S1 and S2 present. No murmurs, gallops, or rubs noted. Rate and rhythm are regular. ABDOMEN: Large, firm, distended, tympanic. There is some erythema to the left lateral quadrant. There are 2 areas of scabbing noted from previous paracenteses, but no warmth and no exudate or infectious material noted. MUSCULOSKELETAL: There is no clubbing, no cyanosis, and no edema. He has full range of motion, steady gait. NEUROLOGIC: Grossly intact with no focal deficits. PSYCHIATRIC: Cooperative and appropriate. DIAGNOSTIC STUDIES/LAB DATA: WBCs 7.1, RBCs 3.64, hemoglobin 13.5, hematocrit 40, MCV 110, MCH 37, MCHC 34, RDW 16, platelets 136, MPV 7.1. Sodium 133, potassium 4.4, chloride 100, CO2 of 26, BUN 13, creatinine 0.75, GFR 107.3, glucose 111. Lactic acid 1.7. Calcium 8.9. Total bilirubin 3.20, AST 76, ALT 27, alk phos 223. Troponin 0.00, total protein 6.9. Albumin 2.9, globulin 4.0, albumin-globulin ratio is 0.7. Imaging: Chest x-ray dated 11/04/18 shows no evidence for active cardiopulmonary disease. IMPRESSION: Mr. Collins is a 58-year-old male patient with advanced liver disease, being admitted to observation for paracentesis in the morning. PLAN: Admit to observation. DIAGNOSES: 1. Need for paracentesis. Dr. Barcenas has already reached out to Dr. Morgan who will coordinate ultrasound-guided versus CT-guided paracentesis in the morning. He has already been contacted and order has been placed. The patient is clinically stable, would not require laboratories in the morning. He should be discharged after his procedure as long as he is clinically stable. For future planning, an outpatient plan will need to be determined for a weekly paracentesis if this is what the patient will be needing, this is something that should be coordinated either with his liver specialist or his GI doctor. At this point, I believe the patient should not need to be following up with oncology service for additional paracentesis as his primary process is non- oncologic in nature, but this is something that the patient should follow up with his transplant team at [facility]. The rest of the patient's course will be determined by further diagnostics, laboratories and any other inputs from other providers as warranted during this admission. 2. Diet: Low sodium as tolerated. 3. Activity: Ambulate as tolerated. 4. DVT prophylaxis: Ambulate as tolerated. 5. Disposition: Admit to observation. TIME SPENT: 45 minutes on admission planning. This plan of care has been discussed with Dr. Cristina Palacios who is in agreement with admission plan of care. NICOLE OSORIO NP [id number]/[facility] #: [id number] [facility]
--- NOTE | 2018-11-06 11:22 | DS ---
CC: Dr. Marlin Colmenares, Flory Pearl; Dr. Ellie Rothman DISCHARGE SUMMARY: DATE OF ADMISSION: 11/04/18 DATE OF DISCHARGE: 11/05/18 PRIMARY DIAGNOSIS: Symptomatic chronic ascites. SECONDARY DIAGNOSES: 1. Chronic liver failure due to hepatitis C and cirrhosis. 2. History of hepatocellular carcinoma, in remission. 3. The patient is on the liver transplant list at [facility]. 4. Osteoarthritis. 5. History of hepatic encephalopathy. 6. Osteoporosis. MEDICATIONS ON DISCHARGE: 1. Fluticasone 1 spray each nostril daily. 2. Furosemide 40 mg p.o. q.a.m. 3. Guaifenesin ER 600 mg p.o. q.p.m. 4. Lactulose 15 mL p.o. daily. 5. Acetaminophen 650 mg p.o. b.i.d. p.r.n. pain. 6. Medical marijuana, dose unknown. 7. Toprol-XL 50 mg p.o. daily. 8. Oxycodone 5 mg p.o. q.6 hours p.r.n. pain. 9. Rifaximin 550 mg p.o. b.i.d. 10. Spironolactone 25 mg p.o. b.i.d. HOSPITAL COURSE: The patient was admitted through the emergency department with dyspnea. The patien t has been receiving albumin infusions and almost weekly paracentesis through Dr. Rothman's office f or some months. Due to the acuity of his shortness of breath, he came into the hospital for treatmen t. He does report that in the past, he was on spironolactone 50 mg p.o. daily and went several month s without paracentesis but since being back on 25 mg a day, he has required more frequent treatment. He was taken off the higher dose spironolactone in September because of fall and left hip fracture as well as related syncope. There was a concern that he was volume depleted. The patient was evaluated ovtrue molina and had a ultrasound- guided paracentesis on 11/05/18. A 4.1 L of yellow fluid was removed. We did not send this for any studies. The patient had full resolution of his symptoms. The patient was discharged in ambulatory condition. STATUS: Observation. CONDITION: Stable. DIET: Should be high protein, otherwise regular. ACTIVITY: As tolerated. FOLLOWUP: Should be with the primary care and he needs to have repeated paracentesis and albumin inf usions arranged through primary care, since this is not going to be happening with Oncology. The patient should consider increasing his spironolactone as outpatient with frequent rechecks of his orthostatic vital signs. Further followup should be with the [facility], hepatic trans plant team. [id number]/[facility] #: [id number]
== END 2018-11-05 14:40 | disposition home or self-care (01) ==
LOC: ED 15:51 → MED 19:26
PROVIDERS: ADMIT Pediatrics; ATTEND Internal Medicine
DX: K72.10 Chronic hepatic failure without coma (principal); K74.60 Unspecified cirrhosis of liver; Z85.05 Personal history of malignant neoplasm of liver; R18.8 Other ascites; Z94.4 Liver transplant status; M19.90 Unspecified osteoarthritis, unspecified site; G93.40 Encephalopathy, unspecified; M81.0 Age-related osteoporosis without current pathological fracture; R06.02 Shortness of breath; Z87.891 Personal history of nicotine dependence; I10 Essential (primary) hypertension; Z87.442 Personal history of urinary calculi
CPT/HCPCS: 36415; 49083; 71045; 80053; 83605; 84484; 85025; 87040; 93005; 96374; 99283; A9270-GY; G0378; J2270

== ENCOUNTER 2019-02-24 15:45 | Inpatient (IN) | payer OTHER ==
--- OUTSIDE RECORDS SUMMARY | 2019-02-24 16:08 | XMS REPORT | Continuity of Care Document ---
:1960 External Reference #:[id number] Author Name Belinda Harris Care Team Providers Name Role Phone Marlin Colmenares MD Primary Care Physician Unavailable Payers Date Identification Numbers Payment Provider Subscriber Expires: 2018 Policy Number: [id number] [facility] Aakash Madrid PayID: [id number] [address] [address] [place] [address] Effective: 2018 Policy Number: [id number] [employer] [place] Group Number: [id number] [address] Group Name: Medicaid [facility] [address] PayID: [id number] Onset: 2017 Policy Number: [id number] Arcam[employer] Madrid Group Name: [id number] [phone] [address] [address] PayID: [place] [address] Problems Active Problems Provider Date Arthralgia of the pelvic region and thigh Linden Read M.D. Onset: 2017 Localized, primary osteoarthritis of the Linden Read M.D. Onset: 2017 pelvic region and thigh Current tear of medial cartilage AND/OR Linden Read M.D. Onset: 2017 meniscus of knee Family History Date Family Member(s) Observation Comments General No Current Problems Social History Type Date Description Comments Sex Unknown Lives With Spouse Occupation Not Currently Working ETOH Use Occasionally consumes alcohol Tobacco Use Start: Unknown Patient has never smoked Smoking Status Reviewed: 12/31/18 Patient has never smoked Exercise Type/Frequency Exercises sporadically Allergies, Adverse Reactions, Alerts Active Allergies Reaction Severity Comments Date Hydrocodone 11/29/2017 Inactive Allergies NKDA 10/17/2017 Medications Active Medications SIG Qnty Indications Ordering Provider Date Ibuprofen 200 400-600mg every Unknown 200mg Tablets 6 hours as needed for pain. Fluticasone Propionate 2 puffs each Unknown nare every in 50mcg/Act Suspension the morning Furosemide 1 by mouth every Unknown 40mg Tablets day Medical Marijuana vape at night Unknown Metoprolol Succinate ER 1 by mouth every Unknown 25mg day Tablets ER 24HR Mucinex 2 by mouth twice Unknown 600mg Tablets ER 12HR a day Omeprazole 1 by mouth every Unknown 20mg Capsules DR day Spironolactone 1 by mouth every Unknown 100mg Tablets day Lactulose Encephalopathy take 15ml 4 Unknown times daily as 10GM/15ML Solution needed History Medications Hydrocodone-Acetaminophen 1 to 2 60tabs Linden 01/04/2018 - 5-325mg Tablets tablets by Arthur Read 01/14/2018 mouth every 4-6 hours as needed for pain. Mobic 7.5mg 1 by mouth 60tabs M25.55 Linden 2017 - Tablets twice a day 2 Arthur Read 12/31/2017 as needed Hydrocodone-Acetaminophen Take 1 Tablet Unknown - 5-325mg Tablets 3 Times A Day 10/29/2017 as Needed Metoprolol Succinate ER Darrian - 100mg Tablets ER MD Marlin 07/29/2018 24HR Vital Signs Date Vital Result Comment 12/31/2018 2:18pm Height 67 inches 5'7" Weight 152.25 lb Heart Rate 97 /min BP Systolic Sitting 100 mmHg BP Diastolic Sitting 70 mmHg Body Temperature 97.8 F BMI (Body Mass Index) 23.8 kg/m2 11/14/2018 9:40am Height 67 inches 5'7" Weight 181.25 lb Heart Rate 78 /min BP Systolic Sitting 98 mmHg BP Diastolic Sitting 60 mmHg Body Temperature 97.4 F BMI (Body Mass Index) 28.4 kg/m2 09/20/2018 9:48am Height 67 inches 5'7" Weight 169.38 lb Heart Rate 77 /min BP Systolic Sitting 92 mmHg right upper arm BP Diastolic Sitting 58 mmHg right upper arm Respiratory Rate 18 /min Body Temperature 98.2 F Pain Level 7 left knee/left hip O2 % BldC Oximetry 93 % BMI (Body Mass Index) 26.5 kg/m2 07/30/2018 10:00am Height 67 inches 5'7" Weight 176.00 lb Heart Rate 76 /min BP Systolic Recheck 130 mmHg BP Diastolic Recheck 84 mmHg Respiratory Rate 16 /min Body Temperature 98.1 F BMI (Body Mass Index) 27.6 kg/m2 06/18/2018 9:48am Height 67 inches 5'7" Weight 183.00 lb Heart Rate 76 /min BP Systolic Recheck 132 mmHg BP Diastolic Recheck 84 mmHg Respiratory Rate 16 /min Body Temperature 97.5 F BMI (Body Mass Index) 28.7 kg/m2 04/30/2018 9:32am Height 67 inches 5'7" Weight 187.00 lb Heart Rate 76 /min BP Systolic Recheck 128 mmHg BP Diastolic Recheck 84 mmHg Respiratory Rate 16 /min Body Temperature 98.2 F BMI (Body Mass Index) 29.3 kg/m2 01/31/2018 8:00am Height 67 inches 5'7" Weight 212.00 lb Heart Rate 76 /min BP Systolic Recheck 126 mmHg BP Diastolic Recheck 82 mmHg Respiratory Rate 16 /min Body Temperature 98.0 F BMI (Body Mass Index) 33.2 kg/m2 01/15/2018 9:10am Height 67 inches 5'7" Weight 208.00 lb Heart Rate 76 /min BP Systolic Recheck 124 mmHg BP Diastolic Recheck 84 mmHg Respiratory Rate 16 /min Body Temperature 98.1 F BMI (Body Mass Index) 32.6 kg/m2 01/03/2018 10:18am Height 67 inches 5'7" Weight 207.00 lb Heart Rate 80 /min BP Systolic Recheck 132 mmHg BP Diastolic Recheck 84 mmHg Respiratory Rate 16 /min Body Temperature 97.7 F BMI (Body Mass Index) 32.4 kg/m2 11/29/2017 10:37am Height 67 inches 5'7" Weight 190.00 lb Heart Rate 76 /min BP Systolic Recheck 122 mmHg BP Diastolic Recheck 76 mmHg Respiratory Rate 16 /min Body Temperature 97.6 F BMI (Body Mass Index) 29.8 kg/m2 11/01/2017 11:18am Height 67.5 inches 5'7.50" Weight 190.00 lb Heart Rate 80 /min BP Systolic Recheck 124 mmHg BP Diastolic Recheck 84 mmHg Respiratory Rate 16 /min Body Temperature 98.4 F BMI (Body Mass Index) 29.3 kg/m2 10/17/2017 9:19am Height 67.5 inches 5'7.50" Weight 195.00 lb BP Systolic 122 mmHg BP Diastolic 80 mmHg Respiratory Rate 18 /min Body Temperature 97.1 F Pain Level 10 BMI (Body Mass Index) 30.1 kg/m2 Results Test Date Facility Test Result H/L Range Note Laboratory test 02/25/2018 [facility] Cytology SEE RESULT [address] [employer] [place] [address] [phone] Laboratory test 01/21/2018 [facility] LDH 331 U/L High 140- [address] [place], [place] [id number] [phone] Ferritin 1235.7 ng/mL High 24-336 CBC Auto 01/21/2018 [facility] Red Blood 4.26 10^6/uL Normal 4.00-5.[address] [place] [address] [phone] White Blood Count 8.3 10^3/uL Normal 3.5-10.8 Hemoglobin 15.9 g/dL Normal 14.0-18.0 Hematocrit 45 % Normal 42-52 Mean Corpuscular Volume 106 fL High 80-94 2 Mean Corpuscular Hemoglobin 37 pg High 27-31 Mean Corpuscular HGB Conc 35 g/dL Normal 31-36 Red Cell Distribution Width 15 % Normal 10.5-15 Platelet Count 83 10^3/uL Low 150-450 Mean Platelet Volume 8.0 um3 Normal 7.4-10.4 Abs Neutrophils 4.9 10^3/uL Normal 1.5-7.7 Abs Lymphocytes 1.9 10^3/uL Normal 1.0-4.8 Abs Monocytes 0.9 10^3/uL High 0-0.8 Abs Eosinophils 0.4 10^3/uL Normal 0-0.6 Abs Basophils 0.1 10^3/uL Normal 0-0.2 Abs Nucleated RBC 0 10^3/uL Granulocyte % 59.7 % Normal 38-83 Lymphocyte % 23.1 % Low 25-47 Monocyte % 11.0 % High 0-7 Eosinophil % 5.3 % Normal 0-6 Basophil % 0.9 % Normal 0-2 Nucleated Red Blood Cells % 0.2 Retic Count 01/21/2018 [facility] Retic Count 2.9 % High 0.5- 1.5 [address] [facility] [place] [address] [phone] Mean Retic Volume 128.4 Immature Retic Fraction 0.55 RBC Retic Count 4.26 10^6/uL Low 4.6-6.2 Corrected Retic Count 2.9 % High 0.5-1.5 Maturation Factor Retic 1.0 Retic Index 2.90 Hematocrit for Retic CNT 45 % Normal 42-52 Laboratory test 01/21/2018 [facility] Direct NEGATIVE finding [address] [place] [address] [phone] Iron & Iron 01/21/2018 [facility] Iron 117 g/dL Normal 50- 212 Binding Capacity [address] [facility] [place] [address] [phone] Unsaturated Iron Binding 108 g/dL Total Iron Binding Capacity 225 g/dL Low 250-450 Transferrin 161 mg/dL Low 203-362 % Iron Saturation 52 % Normal 15-55 Laboratory 01/21/2018 [facility] Hepatitis B Nonreactive Nonreactive test finding [address] [place] [address] [phone] Hepatitis B 01/21/2018 [facility] Hepatitis B Immune Immune Angelika AB Titer [address] [facility] [place] [address] [phone] Hep B Surf AB Level 151.28 mIU/mL >12 Laboratory 01/21/2018 [facility] Hepatitis B Nonreactive Nonreactive test finding [address] [facility] [place] [address] [phone] Hepatitis C Antibody High Reactive Abnormal Nonreactive 3 Haptoglobin 31 mg/dL 30 - 200 4 Hepatitis C Rna Quant [id number] IU/mL Abnormal Undetected 5 1 SEE RESULT BELOW Name: AAKASH MADRID : [address]: Sun Jacobs [employer] Acct: [id number] Unit: [id number] AGE: 57 Location: Re02/25/18 SEX: M Status: REG REF SPEC: [id number] SHERMAN: 02/25/[address] [facility] [address]: Sun Jacobs [employer] REQ: [id number] RECD: 02/25/18 STATUS: [place] DR: Sav Ricks MD _ ORDERED: FNA-IMG GUID BX, LEVEL 4, CYTO ADEQ-1ST P, IMMUNO-FIRST, SPEC ST NON-ORG FINAL DIAGNOSIS Liver, ultrasound guided fine needle aspiration: -- Atypical? features most consistent with high grade dysplastic nodule. See comment. Comment: The aspirate smears are amply cellular and demonstrate variably discohesive hepatocellular elements arranged in variable sized trabeculae ranging from 2-3 cells to up to greater than 10 cells. A few pseudoglandular formations are noted. Small cell dysplasia is noted. No marked nuclear pleomorphism, mitotic activity or necrosis is seen. Formalin fixed cell block is modestly cellular but demonstrates scattered fragments demonstrating intact trabeculae ranging from 2-3 cells to up to 6 cells in with with a few pseudoglands noted. A reticulin stain performed with appropriate controls demonstrates disordered and fragmented reticulin staining. An immunohistochemical stain for Gylipican-3 with appropriate control demonstrates weak to moderate fine staining in hepatocytes. The cytomorphologic features in this case are highly suggestive of a well-differentiated hepatocellular carcinoma, CONTINUED ON NEXT PAGE DEPARTMENT OF PATHOLOGY, [address] [place] [address] Nile Kincaid M.D. Director [facility] # [id number] RUN DATE: 03/01/18 [facility] LAB LIVE PAGE 2 Patient: AAKASH MADRID [id number] (Continued) SPECIMEN COMMENTS (Continued) however the presence of residual reticulin architecture as well as only weak homogeneous Glypican 3 staining (relative to dark coarse granular staining typical of hepatocellular carcinoma) are more characteristic of a high-grade dysplastic lesion, falling short of diagnostic criteria for hepatocellular carcinoma. Appropriate therapeutic intervention should be considered. Should observation be considered, repeat biopsy is recommended should this lesion increase in size or others become apparent. Dr. De Anda has reviewed this case and concurs. A cell block was prepared in the evaluation of this specimen. Smears and cell block reveal similar findings. 1. LIVER - US GUIDED LIVER FINE NEEDLE ASPIRATION CLINICAL HISTORY Mass and ascities. IMMEDIATE INTERPRETATION Pass 1 2-adequate GROSS DESCRIPTION Ultrasound guided, fine needle aspiration x 2 passes with 4 alcohol fixed slides, 1 Air dried slide(s) and needle rinse in formalin for cell block. Signed by and Reported on: Nile Kincaid MD 10/12 0932 END OF REPORT DEPARTMENT OF PATHOLOGY, [address] [place] [address] Nile Kincaid M.D. Director [facility] # [id number] 2 Consistent with Previous Results Reported on 12/26/17 3 High reactive sample are considered positive for Hepatitis C 4 Test Performed by: [facility] - [facility] [address] [place] [address] 5 Result in log IU/mL is 6.46. ADDITIONAL INFORMATION The quantification range of this assay is 15 to 100,000,000 IU/mL (1.18 log to 8.00 log IU/mL). Testing was performed using the kim HCV test ([employer] with the kim 6800 System. Test Performed by: [facility] - [facility] [address] [place] [id number] Procedures Date Code Description Status 02/15/2018 77427 ECHO Transthorasic Realtime 2D W Doppler & Color Flow Hosp Completed 02/14/2018 69334 EKG, Interpretation Only Completed 01/04/2018 37232 Arthroscopy,Knee,Meniscectomy Medial Or Lateral Completed Encounters Type Date Location Provider Dx Diagnosis Office Visit 11/14/2018 [facility] Raed, M16.52 Unilateral 9:30a [facility] AT M.D. 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, left hip M53.3 Sacrococcygeal disorders, not elsewhere classified Office Visit 11/05/2018 9:24a [facility] Stephon Rocha R18.8 Other ascites Assoc,carey Pardo M.D.,FACP Hospitalists K74.60 Unspecified cirrhosis of liver B19.20 Unspecified viral hepatitis C without hepatic coma K76.9 Liver disease, unspecified C22.0 Liver cell carcinoma M19.90 Unspecified osteoarthritis, unspecified site Z86.61 Personal history of infections of the central nervous system M81.0 Age-related osteoporosis w/o current pathological fracture Office Visit 11/04/2018 9:24a [facility] Federica R06.02 Shortness of Assoc,pc Geoff Schuster, breath Hospitalists [employer] C22.0 Liver cell carcinoma Office Visit 10/18/2018 [facility] Rodrigo S22.43xA Multiple 11:36a Assoc,carey Zafar M.D. fractures of Hospitalists ribs, bilateral, init for clos fx C22.0 Liver cell carcinoma R18.8 Other ascites B18.2 Chronic viral hepatitis C Office Visit 10/16/2018 [facility] Neli M16.12 Unilateral primary 12:05p [facility] [place] [place] osteoarthritis, left C.M.A. hip S22.43xA Multiple fractures of ribs, bilateral, init for clos fx W19.xxxA Unspecified fall, initial encounter Office Visit 10/15/2018 11:36a [facility] Cristina Matildeh, M25.552 Pain in Assoc,pc DO left hip Hospitalists R07.81 Pleurodynia Office 09/20/2018 [facility] M16.12 Unilateral primary Visit 9:30a [facility] Shannan Read M.D. osteoarthritis, left AT [place] hip Office 07/30/2018 [facility] [place] M16.12 Unilateral primary Visit 9:45a [facility] Read M.D. osteoarthritis, left AT [place] hip Office 06/18/2018 [facility] [place] M16.12 Unilateral primary Visit 9:45a [facility] Sh[facility] Read M.D. osteoarthritis, left AT [place] hip Office 04/30/2018 [facility] [place] M16.12 Unilateral primary Visit 9:30a [facility] Sh[facility] Read M.D. osteoarthritis, left AT [place] hip Office 02/14/2018 [facility] Stephon Rocha I47.9 Paroxysmal Visit 11:18a Assoc,carey [place], tachycardia, Hospitalists Arthur,FACP unspecified Office 01/31/2018 [facility] [place] M16.12 Unilateral primary Visit 8:00a [facility] Read M.D. osteoarthritis, left AT [place] hip Office 01/15/2018 [facility] [place] S83.232D Complex tear of Visit 9:00a [facility] Shannan Read M.D. medial mensc, AT [place] current injury, l knee, subs M25.552 Pain in left hip M16.12 Unilateral primary osteoarthritis, left hip Office Visit 11/29/2017 [facility] [place] M16.12 Unilateral primary 10:30a [facility] Shannan Read M.D. osteoarthritis, left AT [place] hip S83.232A Complex tear of medial mensc, current injury, l knee, init Office Visit 11/01/2017 [facility] [place] M16.12 Unilateral primary 11:15a [facility] Shannan Read M.D. osteoarthritis, left AT [place] hip S70.02xD Contusion of left hip, subsequent encounter Office Visit 10/17/2017 [facility] [place] M16.12 Unilateral primary 8:30a [facility] Arthur Read osteoarthritis, left C.M.A. hip M25.552 Pain in left hip Plan of Treatment Future Appointment(s):02/18/2019 8:00 am - Linden Read M.D. at [facility] AT Mpqlchpe56/06/2019 - Linden Read M.D.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, left hipFollow up:6 to 8 weeks
--- OUTSIDE RECORDS SUMMARY | 2019-02-24 16:08 | XMS REPORT | Continuity of Care Document ---
:1960 External Reference #:[id number] Author Name Linden Read M.D. (transmitted by agent of provider Ileana Smith) Address [address] [place] [address] Care Team Providers Name Role Phone Marlin Colmenares MD - Internal Care Team Information [employer] Aud[employer] Medicine Problems Active Problems Provider Date Arthralgia of the pelvic region and thigh Linden Read M.D. Onset: 2017 Localized, primary osteoarthritis of the Linden Read M.D. Onset: 2017 pelvic region and thigh Current tear of medial cartilage AND/OR Linden Read M.D. Onset: 2017 meniscus of knee Social History Type Date Description Comments Sex Unknown ETOH Use Occasionally consumes alcohol Tobacco Use Start: Unknown Patient has never smoked Smoking Status Reviewed: 02/18/19 Patient has never smoked Exercise Type/Frequency Exercises sporadically Allergies, Adverse Reactions, Alerts Active Allergies Reaction Severity Comments Date Hydrocodone 11/29/2017 Inactive Allergies NKDA 10/17/2017 Medications Active Medications SIG Qnty Indications Ordering Provider Date Furosemide 1 by mouth every Unknown 40mg Tablets day Medical Marijuana vape at night Unknown Mucinex 2 by mouth twice Unknown 600mg Tablets ER 12HR a day Omeprazole 1 by mouth every Unknown 20mg Capsules DR day Spironolactone 1 by mouth every Unknown 100mg Tablets day Lactulose Encephalopathy take 15ml 4 Unknown times daily as 10GM/15ML Solution needed Immunizations Description No Information Available Vital Signs Date Vital Result Comment 02/18/2019 7:58am Height 67 inches 5'7" Weight 161.12 lb Heart Rate 84 /min BP Systolic Sitting 100 mmHg BP Diastolic Sitting 70 mmHg Body Temperature 98.3 F O2 % BldC Oximetry 86 % BMI (Body Mass Index) 25.2 kg/m2 12/31/2018 2:18pm Height 67 inches 5'7" Weight 152.25 lb Heart Rate 97 /min BP Systolic Sitting 100 mmHg BP Diastolic Sitting 70 mmHg Body Temperature 97.8 F BMI (Body Mass Index) 23.8 kg/m2 Results Test Date Facility Test Result H/L Range Note CBC Auto 01/27/2019 [facility] White Blood 7.4 10^3/uL Normal 3.5-10.[address] [place] [address] [phone] Red Blood Count 4.23 10^6/uL Normal 4.18-5.48 Hemoglobin 15.5 g/dL Normal 14.0-18.0 Hematocrit 44 % Normal 42-52 Mean Corpuscular Volume 105 fL High 80-94 Mean Corpuscular Hemoglobin 37 pg High 27-31 Mean Corpuscular HGB Conc 35 g/dL Normal 31-36 Red Cell Distribution Width 15 % Normal 10-15 Platelet Count 107 10^3/uL Low 150-450 Mean Platelet Volume 7.3 fL Low 7.4-10.4 Abs Neutrophils 6.0 10^3/uL Normal 1.5-7.7 Abs Lymphocytes 0.3 10^3/uL Low 1.0-4.8 Abs Monocytes 0.7 10^3/uL Normal 0-0.8 Abs Eosinophils 0.3 10^3/uL Normal 0-0.6 Abs Basophils 0.0 10^3/uL Normal 0-0.2 Abs Nucleated RBC 0.0 10^3/uL Granulocyte % 81.2 % Lymphocyte % 4.2 % Monocyte % 9.8 % Eosinophil % 4.6 % Basophil % 0.2 % Nucleated Red Blood Cells % 0.0 Comp Metabolic Panel 01/27/2019 [facility] Sodium 126 mmol/L Low 135-[address] [place] [address] [phone] Potassium 4.5 mmol/L Normal 3.5-5.0 Chloride 95 mmol/L Low 101-111 Co2 Carbon Dioxide 25 mmol/L Normal 22-32 Anion Gap 6 mmol/L Normal 2-11 Glucose 195 mg/dL High 70-100 Blood Urea Nitrogen 12 mg/dL Normal 6-24 Creatinine 0.82 mg/dL Normal 0.67-1.17 BUN/Creatinine Ratio 14.6 Normal 8-20 Calcium 8.8 mg/dL Normal 8.6-10.3 Total Protein 7.0 g/dL Normal 6.4-8.9 Albumin 3.4 g/dL Normal 3.2-5.2 Globulin 3.6 g/dL Normal 2-4 Albumin/Globulin Ratio 0.9 Low 1-3 Total Bilirubin 3.20 mg/dL High 0.2-1.0 Alkaline Phosphatase 134 U/L High 34-104 Alt 19 U/L Normal 7-52 Ast 40 U/L High 13-39 Egfr Non- 96.8 >60 Egfr 117.2 >60 1 Inr/Protime 01/27/2019 [facility] Inr 1.50 High 0.82-1.[address] [place], [place] [id number] [phone] 1 Because ethnic data is not always readily available, this report includes an eGFR for both -Americans and non- Americans. The National Kidney Disease Education Program (NKDEP) does not endorse the use of the MDRD equation for patients that are not between the ages of 18 and 70, are , have extremes of body size, muscle mass, or nutritional status, or are non- or non-. According to the National Kidney Foundation, irrespective of diagnosis, the stage of the disease is based on the level of kidney function: Stage Description GFR(mL/min/1.73 m(2)) 1 Kidney damage with normal or decreased GFR 90 2 Kidney damage with mild decrease in GFR 60-89 3 Moderate decrease in GFR 30-59 4 Severe decrease in GFR 15-29 5 Kidney failure <15 (or dialysis) 2 Standard intensity warfarin therapeutic range: 2.0-3.0 High intensity warfarin therapeutic range: 2.5-3.5 Procedures Description No Information Available Medical Devices Description No Information Available Encounters Type Date Location Provider Dx Diagnosis Office Visit 12/31/2018 Kamari Gupta6.52 Unilateral 2:[facility] [place] osteoarthritis, left hip Office Visit 11/14/2018 Kamari Gupta6.52 Unilateral 9:30a Services Of Shannan Subramanian.DEufemia post-traumatic [place] osteoarthritis, left hip 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, left hip M53.3 Sacrococcygeal disorders, not elsewhere classified Office Visit 11/05/2018 9:24a [facility] Stephon Rocha R18.8 Other ascites Assoc,carey Pardo M.D.,FACP Hospitalists K74.60 Unspecified cirrhosis of liver B19.20 Unspecified viral hepatitis C without hepatic coma K76.9 Liver disease, unspecified C22.0 Liver cell carcinoma M19.90 Unspecified osteoarthritis, unspecified site Z86.61 Personal history of infections of the central nervous system M81.0 Age-related osteoporosis w/o current pathological fracture Office Visit 11/04/2018 9:24a [facility] Federica R06.02 Shortness of 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 [...] fall, initial encounter Office Visit 10/15/2018 11:36a [facility] Cristina Palacios, M25.552 Pain in Assoc,pc DO left hip Hospitalists R07.81 Pleurodynia Office Visit 09/20/2018 [facility] M16.12 Unilateral primary 9:30a Services Of Shannan Read M.D. osteoarthritis, left AT [place] hip Assessments Date Code Description Provider 02/18/2019 M16.52 Unilateral post-traumatic Linden Read M.D. osteoarthritis, left hip 12/31/2018 M16.52 Unilateral post-traumatic Linden Read M.D. osteoarthritis, left hip 11/14/2018 M16.52 Unilateral post-traumatic Linden Read M.D. osteoarthritis, left hip 11/14/2018 M16.52 Unilateral post-traumatic Linden Read M.D. osteoarthritis, left hip 11/14/2018 M53.3 Sacrococcygeal disorders, not Linden Read M.D. elsewhere classified 11/05/2018 R18.8 Other ascites Stephon Pardo M.D.,[facility] 11/05/2018 K74.60 Unspecified cirrhosis of liver Stephon Pardo M.D., FACP 11/05/2018 B19.20 Unspecified viral hepatitis C Stephon Pardo M.D.,FACP without hepatic coma 11/05/2018 K76.9 Liver disease, unspecified Stephon Pardo M.D.,FACP 11/05/2018 C22.0 Liver cell carcinoma Stephon Pardo M.D.,FACP 11/05/2018 M19.90 Unspecified osteoarthritis, Stephon Pardo M.D.,[facility] unspecified site 11/05/2018 Z86.61 Personal history of infections of Stephon Pardo M.D., FACP the central nervous system 11/05/2018 M81.0 Age-related osteoporosis w/o current Stephon Pardo M.D.,[facility] pathological fracture 11/04/2018 R06.02 Shortness of breath 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 bilateral, init for clos fx 10/18/2018 C22.0 Liver cell carcinoma Rodrigo Zafar M.D. 10/18/2018 R18.8 Other ascites Rodrigo Zafar M.D. 10/18/2018 B18.2 Chronic viral hepatitis C Rodrigo Zafar M.D. 10/17/2018 S22.41xA Multiple fractures of ribs, right Rodrigo Zafar M.D. side, init for clos fx 10/17/2018 W19.xxxA Unspecified fall, initial encounter Rodrigo Zafar M.D. 10/17/2018 C22.0 Liver cell carcinoma Rodrigo Zafar M.D. 10/17/2018 R18.8 Other ascites Rodrigo Zafar M.D. 10/17/2018 K74.69 Other cirrhosis of liver Rodrigo Zafar M.D. 10/16/2018 M16.12 Unilateral primary osteoarthritis, LOAN Gallegos left hip 10/16/2018 S22.43xA Multiple fractures of ribs, LOAN Gallegos bilateral, init for clos fx 10/16/2018 W19.xxxA Unspecified fall, initial encounter LOAN Gallegos 10/15/2018 M25.552 Pain in left hip Cristina Palacios, DO 10/15/2018 R07.81 Pleurodynia Cristina Palacios, DO 09/20/2018 M16.12 Unilateral primary osteoarthritis, Linden Read M.D. left hip Plan of Treatment Future Appointment(s):04/15/2019 11:15 am - Linden Read M.D. at [facility] AT [facility]dlrbw04/24/2019 - Linden Read M.D.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, left hipFollow up:8 weeks Functional Status Description No Information Available Mental Status Description No Information Available Referrals Description No Information Available
--- NOTE | 2019-02-24 16:31 | ED ---
Shortness of Breath - HPI Summary HPI Summary: This patient is a 58 year old male presenting to [facility] with a chief complaint of shortness cough. The patient states he has had a productive cough for 7 months. He states he is currently getting treatment for liver cancer in [place]. He states he gets upper abdominal pain for 10-15 minutes and then dry heaves for a short period of time every day. The patient reports SOB and denies chest pain and fever. - History of Current Complaint Chief Complaint: EDShortnessOfBreath Time Seen by Provider: 02/24/19 16:22 Hx Obtained From: Patient Onset/Duration: Lasting Weeks Dyspnea At: Rest Associated Signs & Symptoms: Cough (Productive) - Allergy/Home Medications Allergies/Adverse Reactions: Allergies Allergy/AdvReac Type Severity Reaction Status Date / Time hydrocodone AdvReac Mild GI Upset Verified 02/24/19 16:00 Home Medications: Home Medications Furosemide TAB* [Lasix TAB*] 40 mg PO DAILY 02/24/19 [History Confirmed 02/24/19 ] Ondansetron TAB* [Zofran 4 MG Tab*] 4 mg PO Q4HR PRN 02/24/19 [History Confirmed 02/24/19] PMH/Surg Hx/FS Hx/Imm Hx Endocrine/Hematology History: Denies: Hx Diabetes Cardiovascular History: Reports: Hx Hypertension Denies: Hx Pacemaker/ICD GI History: Reports: Hx Jaundice, Hx Ulcer - 20 years ago History: Reports: Hx Kidney Stones - 20 years ago Denies: Hx Renal Disease Musculoskeletal History: Reports: Other Musculoskeletal History Sensory History: Reports: Hx Contacts or Glasses - glasses Denies: Hx Hearing Aid Opthamlomology History: Reports: Hx Contacts or Glasses - glasses Psychiatric History: Denies: Hx Panic Disorder - Surgical History Surgery Procedure, Year, and Place: 01/04/18 - L KNEE - ARTHROSCOPIC. Rt KNEE - - 3 TIMES - ACL (TWICE) AND MMT . Rt ARM - BICEP TENDON ATTEMPTED REPAIR Hx Anesthesia Reactions: No Infectious Disease History: No Infectious Disease History: Reports: Hx Hepatitis - hep C Denies: Hx of Known/Suspected MRSA, Traveled Outside the [place] in Last 30 Days - Family History Known Family History: Positive: Hypertension Negative: Cardiac Disease - Social History Alcohol Use: None Alcohol Amount: couple one nite then none for 2 weeks Hx Substance Use: Yes Substance Use Type: Reports: None Substance Use Comment - Amount & Last Used: medical Hx Tobacco Use: Yes Smoking Status (MU): Former Smoker Type: Cigarettes Amount Used/How Often: 10 per week Review of Systems Negative: Fever Negative: Chest Pain Positive: Shortness Of Breath, Cough All Other Systems Reviewed And Are Negative: Yes Physical Exam - Summary Physical Exam Summary: VITAL SIGNS: Reviewed. GENERAL: Patient is a well-developed and nourished MALE who is lying comfortable in the stretcher. Patient is not in any acute respiratory distress. HEAD AND FACE: No signs of trauma. No ecchymosis, hematomas or skull depressions. No sinus tenderness. EYES: PERRLA, EOMI x 2, No injected conjunctiva, no nystagmus. EARS: Hearing grossly intact. Ear canals and tympanic membranes are within normal limits. MOUTH: Oropharynx within normal limits. NECK: Supple, trachea is midline, no adenopathy, no JVD, no carotid bruit, no c- spine tenderness, neck with full ROM. CHEST: Symmetric, no tenderness at palpation. LUNGS: Clear to auscultation bilaterally. No wheezing or crackles. CVS: Regular rate and rhythm, S1 and S2 present, no murmurs or gallops appreciated. ABDOMEN: Soft, non-tender. Ascites. No rebound, no guarding, and no masses palpated. Bowel sounds are normal. EXTREMITIES: FROM in all major joints, no edema, no cyanosis or clubbing. NEURO: Alert and oriented x 3. No acute neurological deficits. Speech is normal and follows commands. SKIN: Dry and warm. Triage Information Reviewed: Yes Vital Signs On Initial Exam: Initial Vitals Temp Pulse Resp BP Pulse Ox 99.1 F 86 16 96/78 90 02/24/19 15:54 02/24/19 15:54 02/24/19 15:54 02/24/19 15:54 02/24/19 15:54 Vital Signs Reviewed: Yes Diagnostics - Vital Signs Vital Signs Temp Pulse Resp BP Pulse Ox 02/24/19 15:54 99.1 F 86 16 96/78 90 - Laboratory Result Diagrams: 02/24/19 17:00 02/24/19 17:01 Lab Statement: Any lab studies that have been ordered have been reviewed, and results considered in the medical decision making process. - Radiology CXR Radiology Interpretation Completed By: Radiologist Summary of Radiographic Findings: Chronic prominence of insterstitial markings with suggestion of mild interstitial fibrosis. Otherwise clear lungs and pleural spaces. Negative for pneumothorax. Mildly elevated RIGHT hemidiaphram corresponding with mass effect from advanced hepatic cirrhosis with ascites on chest CT. ED Provider has reviewed this report. - CT Head/Chest CT Interpretation Completed By: Radiologist Summary of CT Findings: No acute findings. No filling defects suspicious for pulmonary emboli are seen. There is no CT evidence of aortic dissection nor leakage. No aortic aneurysm appraciated. Redemonstration of cirrhotic liver changes. Large amount of ascites in the visualized upper abdomen. Splenomegaly. ED Provider has reviewed this report. - EKG 1645 Cardiac Rate: NL - 78 BPM EKG Rhythm: Sinus Rhythm Summary of EKG Findings: No ST elevations. ED Physician has reviewed and interpreted this report. Course/Dx - Course Assessment/Plan: This patient is a 58 year old male presenting to [facility] with a chief complaint of shortness cough. The patient states he has had a productive cough for 7 months. He states he is currently getting treatment for liver cancer in [place]. He states he gets upper abdominal pain for 10-15 minutes and then dry heaves for a short period of time every day. The patient reports SOB and denies chest pain and fever. Blood work at his baseline except for lactic acid of 3. CXR IMPRESSION: #. Chronic prominence of interstitial markings with suggestion of mild interstitial. fibrosis. Otherwise clear lungs and pleural space. Negative for pneumothorax. #. The heart, pulmonary vasculature, and mediastinal contours are unremarkable. #. Mildly elevated RIGHT hemidiaphragm corresponding with mass effect from advanced. hepatic cirrhosis with ascites on January 02, [address] ABG shows a pH of 7.4, PCO2 is 28, PO2 67 O2 site is 96 in the nasal cannula. I ambulated the patient with oxygen and he actually drops to the upper 80s previous and the patient becomes short of breath. At this point I discussed the case with Dr. Pardo will be admitted the patient to his services for further workup and management. CTA of the chest impression: Negative for PE, aortic dissection or aortic aneurysm. - Diagnoses Provider Diagnoses: Hypoxia Discharge ED - Sign-Out/Discharge Documenting (check all that apply): Patient Departure - Admission Patient Received Moderate/Deep Sedation with Procedure: No - Discharge Plan Condition: Stable Disposition: ADMITTED TO [facility] Referrals: Marlin Colmenares MD [Primary Care Provider] - - Billing Disposition and Condition Condition: STABLE Disposition: Admitted to [facility] - Attestation Statements Document Initiated by Lillian: Yes Documenting Scribe: Osman Encinas Provider For Whom Lillian is Documenting (Include Credential): Scott Lyman MD Scribe Attestation: IOsman, scribed for Scott Lyman MD on 02/24/19 at 2157. Scribe Documentation Reviewed: Yes Provider Attestation: The documentation as recorded by the scribeOsman accurately reflects the service I personally performed and the decisions made by me, Scott Lyman MD Status of Scribe Document: Viewed
[2019-02-24 17:14] LABS: ABS Eosinophils 0.1 10^3/ul (0-0.6); ABS Lymphocytes 0.4 10^3/ul (1.0-4.8); ABS Monocytes 1.2 10^3/ul (0-0.8); ABS Neutrophils 6.8 10^3/ul (1.5-7.7); Eosinophil % 1.6 %; Hematocrit 43 % (42-52); Hemoglobin 14.6 g/dL (14.0-18.0); Lymphocyte % 4.7 %; Mean Corpuscular HGB Conc 34 g/dL (31-36); Mean Corpuscular Hemoglobin 35 pg (27-31); Mean Corpuscular Volume 104 fL (80-94); Mean Platelet Volume 6.9 fL (7.4-10.4); Platelet Count 145 10^3/uL (150-450); Red Blood Count 4.14 10^6 /uL (4.18-5.48); Red Cell Distribution Width 16 % (10-15); White Blood Count 8.6 10^3/uL (3.5-10.8)
[2019-02-24 17:36] LABS: Albumin 3.1 g/dL (3.2-5.2); Albumin/Globulin Ratio 0.7 (1-3); C Reactive Protein 24.43 mg/L (<8.01); Calcium 8.9 mg/dL (8.6-10.3); EGFR African American 100.1 (>60); EGFR Non-African American 82.7 (>60); Globulin 4.3 g/dL (2-4); Potassium 4.3 mmol/L (3.5-5.0); Total Bilirubin 3.2 mg/dL (0.2-1.0); Total Protein 7.4 g/dL (6.4-8.9)
[2019-02-24 17:39] LABS: CKMB ng/mL 0.7 ng/mL (0.6-6.3)
[2019-02-24 17:42] LABS: Urine Appearance Clear; Urine Bilirubin Negative (Negative); Urine Blood Negative (Negative); Urine Color Amber; Urine Glucose Negative (Negative); Urine Ketones Negative (Negative); Urine Nitrite Negative (Negative); Urine Protein Negative (Negative); Urine Specific Gravity 1.023 (1.010-1.030); Urine Urobilinogen Positive (Negative)
[2019-02-24] MEDS ORDERED: Iohexol 350* (CONTRAST) 500 ML MDV IV ONE (19:46)
[2019-02-24] MEDS ORDERED: Ondansetron INJ* 2 MG/ML VIAL IV PRN (22:53)
[2019-02-25] MEDS: cefTRIAXone(*) 1 GM in NS 0.9% 50 ML* 50 ML IVPB SCH ×2 (00:47→21:05)
[2019-02-25 06:57] LABS: ABS Eosinophils 0.2 10^3/ul (0-0.6); ABS Lymphocytes 0.5 10^3/ul (1.0-4.8); ABS Monocytes 1.1 10^3/ul (0-0.8); ABS Neutrophils 6.1 10^3/ul (1.5-7.7); Eosinophil % 2.3 %; Hematocrit 42 % (42-52); Hemoglobin 14.5 g/dL (14.0-18.0); Mean Corpuscular HGB Conc 35 g/dL (31-36); Mean Corpuscular Hemoglobin 36 pg (27-31); Mean Corpuscular Volume 103 fL (80-94); Mean Platelet Volume 6.9 fL (7.4-10.4); Platelet Count 141 10^3/uL (150-450); Red Blood Count 4.04 10^6 /uL (4.18-5.48); Red Cell Distribution Width 16 % (10-15); White Blood Count 7.8 10^3/uL (3.5-10.8)
[2019-02-25 07:14] LABS: BUN/Creatinine Ratio 18.5 (8-20); Calcium 8.9 mg/dL (8.6-10.3); EGFR African American 118.8 (>60); EGFR Non-African American 98.2 (>60); Potassium 4.9 mmol/L (3.5-5.0)
[2019-02-25] MEDS: oxyCODONE TAB* 5 MG TAB PO PRN ×2 (07:23→15:59)
[2019-02-25] MEDS ORDERED: Fluticasone Propionate 1 PUFF/50 MCG DISKUS INH SCH (09:00)
[2019-02-25] MEDS ORDERED: Ipratropium 0.5MG/2.5ML NEB* 0.5 MG/2.5 ML NEB.SOLN INH SCH (09:00)
[2019-02-25] MEDS: RiFAXimin* 550 MG TAB PO SCH ×2 (09:05→20:57)
[2019-02-25] MEDS: Lactulose* 15 ML UDC PO SCH (09:06)
[2019-02-25] MEDS: Spironolactone TAB* 25 MG PO SCH (09:06)
[2019-02-25] MEDS: Furosemide TAB* 40 MG PO SCH (09:06)
--- NOTE | 2019-02-25 10:39 | HP ---
CC: Dr. Marlin Colmenares in [facility]; Dr. Rothman at Hematology/ Oncology * HISTORY AND PHYSICAL: DATE OF ADMISSION: 02/24/19 CHIEF COMPLAINT: Shortness of breath. HISTORY OF PRESENT ILLNESS: Mr. Collins is a 58-year-old man with liver cancer , who reports progressive shortness of breath and coughing over the last 7 to 8 months. The patient is a vague historian but seems to be saying that he has had this cough continuously and has not been to any specialty such as ENT or Pulmonology or Asthma and Allergy. He states he coughs every morning and occasionally has dry heaves and brings up a lot of sputum. Sometimes, if he produces a lot of sputum in the morning he feels better the rest of the day. When asked why he came to the hospital today, he cannot say that this day is any different than any other day but he is just tired of coughing and being in short of breath. The patient is seen weekly at Dr. Rothman's office and has an albumin infusion and he has a paracentesis periodically as well. He had a paracentesis 4 days ago and he states that he usually feels better after paracentesis but this time he felt worse with some abdominal discomfort and a lack of relief of his dyspnea. The patient was admitted to this hospital in October with dyspnea that was thought to be secondary to ascites. He had the paracentesis and felt better at that point. The patient is followed in [place] by the transplant service. PAST MEDICAL HISTORY: Includes hepatitis C with cirrhosis and hepatocellular carcinoma. PAST SURGICAL HISTORY: 1. Right knee arthroscopy x4. 2. Left knee arthroscopy x1. MEDICATIONS: On admission: 1. Furosemide 40 mg p.o. q.a.m. 2. Guaifenesin 600 mg b.i.d. p.r.n. 3. Lactulose 30 mg p.o. daily. 4. Ondansetron 4 mg p.o. q.4 hours p.r.n. nausea. 5. Medical marijuana. 6. Oxycodone 5 mg p.o. q.6 hours p.r.n. pain. 7. Xifaxan 550 mg p.o. b.i.d. 8. Spironolactone 25 mg p.o. daily. ALLERGIES: HYDROCODONE. FAMILY HISTORY: Notable for father of brain aneurysm. Mother had stroke and heart disease. SOCIAL HISTORY: He is disabled. He is . He has 2 kids. He has a history of cigarette use, but has quit years ago. No alcohol or drug use. REVIEW OF SYSTEMS: The patient denies any fevers, but he has had anorexia. The patient denies any chest pain or edema. The patient denies any hemoptysis but he is short of breath and is not sleeping well either. There is no diagnosis of sleep apnea. The patient does report he had a cat at home for one and a half years and he may be allergic but he has had not any investigations for this. Remainder of 14-point review of systems is negative other than mentioned in the HPI. PHYSICAL EXAMINATION GENERAL: He is alert, in no acute distress. VITAL SIGNS: Temperature is 37.3, pulse 72, respirations 30, blood pressure is 93/70, O2 sats 93% but, O2 sat was 86% on room air when he was admitted. HEENT: Head is normocephalic, atraumatic. Sclerae anicteric. Pupils equal, round, and reactive to light and accommodation. Oropharynx is moist. No lesions. NECK: No JVD. No carotid bruit. No thyromegaly. LUNGS: Rales at the right base. No wheezes. HEART: Regular rate and rhythm. No murmurs or gallops. ABDOMEN: Soft, nontender. Positive bowel sounds. No hepatosplenomegaly. The abdomen is distended. EXTREMITIES: No peripheral edema. Dorsalis pedis pulses are 1+ bilaterally. NEUROLOGIC: Cranial nerves II through XII intact. Motor strength is 5/5 throughout. Deep tendon reflexes are symmetric. Alert and oriented x3 but he is a vague historian. DIAGNOSTIC STUDIES/LAB DATA: Sodium 127, potassium 4.3, chloride 96, bicarb 25 , BUN 16, creatinine 0.94, glucose 143. Albumin 3.1, lactic acid 3.0. BNP 14. White count 8.6, hemoglobin 14.6, hematocrit 43%, platelets 145. ABG: His pH was 7.54, pCO2 28, pO2 57 consistent with a respiratory alkalosis and hypoxic respiratory failure. EKG shows normal sinus rhythm, normal axis, no ischemic ST to T wave changes. Head CT was negative. Chest x-ray shows chronic interstitial markings, no acute infiltrates. CT angiogram of the chest shows no pulmonary emboli but does demonstrate ascites, varices in lower esophagus, and splenomegaly. ASSESSMENT AND PLAN: A 58-year-old man presenting with dyspnea and hypoxia. Differential would include bronchitis, interstitial lung disease, congestive heart failure. I consider getting an echocardiogram but he had an echo, which was notably in normal limits since January of last year. His BNP is also normal, so that seems to be unlikely the patient does have hypoxic respiratory failure, may perhaps on the basis of chronic obstructive pulmonary disease or interstitial lung disease. The patient may also simply have fluid overload from his ascites again. I think the patient needs a pulmonology consult, hence he will be started on steroid for possible chronic bronchitis. Code status is full. DVT prophylaxis is with sequential compression devices. [id number] #: [id number] BARBARA
[2019-02-25 11:22] LABS: Albumin 2.9 g/dL (3.2-5.2); Albumin/Globulin Ratio 0.7 (1-3); Globulin 4.2 g/dL (2-4); Indirect Bilirubin 1.5 mg/dL (0.3-1.0); Total Bilirubin 2.5 mg/dL (0.2-1.0); Total Protein 7.1 g/dL (6.4-8.9)
[2019-02-25 11:57] LABS: Activated Partial Thrombo Time 45.3 seconds (26.0-38.0); INR 1.6 (0.82-1.09)
[2019-02-25] MEDS ORDERED: Ipratropium 0.5MG/2.5ML NEB* 0.5 MG/2.5 ML NEB.SOLN INH PRN (12:20)
--- NOTE | 2019-02-25 13:53 | CONS ---
PULMONARY CONSULTATION REPORT: DATE OF CONSULT: 02/25/19 CONSULTATION REQUESTED BY: Dr. Pardo. REASON FOR CONSULTATION: Evaluation of shortness of breath and hypoxemia. HISTORY OF PRESENT ILLNESS: The patient is a 58-year-old male with history of hepatitis C resulting in cirrhosis and also with hepatocellular carcinoma, awaiting transplant. 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 The patient has had chronic issues with ascites, requiring repeat paracentesis. The patient presents for evaluation of worsening shortness of breath. He usually has significant benefit after paracentesis. He has had not much improvement this last time. The patient came in for evaluation of worsening dyspnea. The patient also reports that he had muscle sprain to the back and has been having back pain. He is not able to take deep breath secondary to that. The patient also has chronic cough for a few months. The patient reports cough productive of clear phlegm. Cough is worse when he lies down at night. Cough is also more in the mornings. He has chronic postnasal drip. The patient was not formally diagnosed with COPD in the past. He also was not on any inhalers. The patient was noted to be slightly hypoxemic and was noted to have O2 sat of 86% on room air. He has been satting around 93% to 94% at rest currently. Denies wheezing. He has chronic GERD and is on PPI. The patient reports having breakthrough symptoms. He is also on diuretics for his edema. PAST MEDICAL HISTORY: 1. Hepatitis C. 2. Cirrhosis. 3. Hepatocellular carcinoma, receiving chemo. PAST SURGICAL HISTORY: 1. Right knee arthroscopy. 2. Left knee arthroscopy. 3. Multiple paracentesis. MEDICATIONS: 1. Furosemide. 2. Guaifenesin. 3. Lactulose. 4. Ondansetron. 5. Medical marijuana. 6. Oxycodone. 7. Xifaxan. 8. Spironolactone. ALLERGIES: HYDROCODONE. FAMILY HISTORY: Father of brain aneurysm. Mother had stroke and heart disease. 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 He was also in in the past. He is a former smoker, quit few years ago. No alcohol or drug abuse. REVIEW OF SYSTEMS: All 14 systems reviewed as per HPI. PHYSICAL EXAM: The patient in bed, in no apparent distress. Vital Signs: Temperature 97.5, pulse 67 beats per minute, respiratory rate 20 per minute, O2 sat 95% on 4 L, the patient currently on room air with sats around 94%, blood pressure 100/59. HEENT: Pupils equal, reactive to light. Mucous membranes moist. Lungs: Diminished air entry bilaterally especially at bases. Cardiovascular: S1, S2 present. Abdomen: Distended. Ascites present. No tenderness. Extremities: Normal range of motion. Skin: Spider nevi present. DIAGNOSTIC STUDIES/LAB DATA: WBC count 7.8, hemoglobin 14.5, hematocrit 42, platelet count 141. Blood gas analysis showed pH of 7.54, pCO2 of 28, pO2 of 67 with O2 sat 96%. Sodium 128, potassium 4.9, chloride 99, bicarb 24, BUN 15, creatinine 0.81. Elevated T-bili at 2.5. Lactic acid was elevated on admission , normalized currently. CRP is increased. BNP within normal limits. Albumin is low at 2.9. CT of the chest as personally reviewed by me. The patient with evidence of emphysematous changes in the upper lung zones. The patient also with evidence of pneumatocele in right middle lobe. Evidence of basal atelectasis. The patient also with prominence of interstitium and nonspecific nodular opacities predominantly in the upper lung zones. IMPRESSION AND RECOMMENDATIONS: 58-year-old male with history of cirrhosis, hepatocellular carcinoma, significant smoking history and prior occupational exposures, admitted with shortness of breath. He has chronic shortness of breath secondary to significant ascites; however, has had no relief that he usually has after paracentesis done recently. The patient with no evidence of wheezing on auscultation. He also has history of chronic cough with mucous production. His CT does show evidence of emphysema and interstitial prominence in upper lung zones which could be from occupational exposures and exposure to dust/ silica in the past. He is not hypoxemic currently, was hypoxemic on admission. CTA did not show any evidence of pulmonary embolism. His shortness of breath is combination of significant ascites with decrease in intrathoracic volume and a component of emphysema on top of it. His chronic cough mucous production could be also from that. He reports significant increased secretions, which could be seen in chronic obstructive pulmonary disease. I would recommend trying Atrovent nebulizer if it does not interfere with his hepatic dysfunction. To my knowledge, it is considered to be safe as it is a nebulized medication and not much of that can be absorbed or metabolized in liver. Also recommend flutter device usage. The patient should be educated on incentive spirometry and deep breathing. Thank you for allowing me to participate in the care of your patient. Will follow up with you. [id number]/CPS #: [id number] MTDD
[2019-02-25] MEDS ORDERED: Mometasone 220 MCG MDI INH SCH (18:00)
--- NOTE | 2019-02-25 18:21 | PN ---
Subjective Date of Service: 02/25/19 Interval History: Patient tells me his shortness of breath has been overall improved, but his productive cough continues. He tells me he injured his back near his shoulder blade on the left side about a month ago and has been having pain since. He feels pain there when he coughs. He denies fever/chills, chest pain. He has had abd pain since his last paracentesis in his central abdomen and epigastric region. Denies nausea/vomiting. Objective Active Medications: Furosemide (Lasix Tab*) 40 mg PO DAILY [facility] Last Admin: 02/25/19 09:06 Dose: 40 mg Ceftriaxone Sodium 1 gm/ (Sodium Chloride) 50 mls @ 100 mls/hr IVPB 2100 [facility] Last Admin: 02/25/19 00:47 Dose: 100 mls/hr Ipratropium [place] (Atrovent 0.5 Mg Neb.Yola*) 0.5 mg INH Q4H PRN PRN Reason: SOB/WHEEZING Last Admin: 02/25/19 16:35 Dose: 0.5 mg Lactulose (Lactulose*) 15 ml PO DAILY [facility] Last Admin: 02/25/19 09:06 Dose: 15 ml Mometasone Furoate (Asmanex 220 Mcg Mdi *) 1 puff INH QPM [facility] Ondansetron HCl (Zofran Inj*) 4 mg IV Q6H PRN PRN Reason: NAUSEA Last Admin: 02/25/19 07:23 Dose: 4 mg Oxycodone HCl (Roxycodone Tab*) 5 mg PO Q6H PRN PRN Reason: PAIN Last Admin: 02/25/19 15:59 Dose: 5 mg Rifaximin (Xifaxan*) 550 mg PO BID [facility] Last Admin: 02/25/19 09:05 Dose: 550 mg Spironolactone (Aldactone Tab*) 25 mg PO DAILY [facility] Last Admin: 02/25/19 09:06 Dose: 25 mg Vital Signs - 8 hr 02/25/19 02/25/19 02/25/19 11:15 15:15 15:59 Temperature 97.5 F 98.5 F Pulse Rate 67 82 Respiratory 20 20 18 Rate Blood Pressure 100/59 106/64 (mmHg) O2 Sat by Pulse 95 94 Oximetry 02/25/19 02/25/19 16:37 17:45 Temperature Pulse Rate 77 Respiratory 16 16 Rate Blood Pressure (mmHg) O2 Sat by Pulse 95 Oximetry Oxygen Devices in Use Now: Nasal Cannula Appearance: Thin, white male, laying upright in bed, appearing in NAD Eyes: No Scleral Icterus, PERRLA Ears/Nose/Mouth/Throat: Mucous Membranes Moist Neck: NL Appearance and Movements; NL JVP Respiratory: Symmetrical Chest Expansion and Respiratory Effort, - - crackles in bilateral lung bases Cardiovascular: NL Sounds; No Murmurs; No JVD, RRR Abdominal: - - abdomen soft, nontender, nondistended Extremities: No Edema, No Clubbing, Cyanosis, - - active ROM intact in bilateral shoulders and elbows; no tenderness to palpation along medial aspect of scapula or to shoulder joint Skin: No Rash or Ulcers Neurological: Alert and Oriented x 3, NL Muscle Strength and Tone Result Diagrams: 02/25/19 06:25 02/25/19 06:25 Microbiology and Other Data: Microbiology 02/24/19 17:43 Aerobic Blood Culture - Preliminary Blood Venous No Growth Day 1 Anaerobic Blood Culture - Preliminary No Growth Day 1 02/24/19 16:58 Aerobic Blood Culture - Preliminary Blood Venous No Growth Day 1 Anaerobic Blood Culture - Preliminary No Growth Day 1 Assess/Plan/Problems-Billing Assessment: 58 yo male with PMHx cirrhosis, hepatocellular cancer, hx of hepatitis C, and HFpEF presents with hypoxia and chronic cough. - Patient Problems (1) Hypoxia Current Visit: Yes Status: Acute Code(s): R09.02 - HYPOXEMIA SNOMED Code(s ): 841510982 Comment: -CTA negative for PE, CXR without pneumonia but does demonstrate interstitial fibrosis -good saturations on 3L oxygen today. SOB is symptomatically improved -seen in consultation by Dr. Stallworth today, suspects the patient has COPD given chronic cough, work exposures, and smoking history. He will likely need follow up outpatient to have PFTs -starting prn atrovent and flutter valve per Dr. Stallworth's recommendation -this is likely a COPD exacerbation, continue ceftriaxone -d/c mometasone inhaler as this is not yet needed based on his disease progression (2) Left shoulder pain Current Visit: Yes Status: Acute Code(s): M25.512 - PAIN IN LEFT SHOULDER SNOMED Code(s): 87186270 Comment: -appears musculoskeletal, but EKG at admission had new T wave inversions. Ordering repeat EKG -continue oxycodone (which patient takes for pain related to cancer) (3) Hepatocellular carcinoma Current Visit: No Status: Acute Code(s): C22.0 - LIVER CELL CARCINOMA SNOMED Code(s): 228554074 Comment: - On transplant list at [facility] - Continue home lactulose and oxycodone - Routinely received paracentesis outpatient. Ascites observed on CTA on admission. This may be contributing to shortness of breath but is improving symtomatically without paracentesis during this hospitalization (4) (HFpEF) heart failure with preserved ejection fraction Current Visit: Yes Status: Acute Code(s): I50.30 - UNSPECIFIED DIASTOLIC ( CONGESTIVE) HEART FAILURE SNOMED Code(s): 346397392 Comment: -continue home lasix and spironolactone (5) Full code status Current Visit: Yes Status: Acute Code(s): Z78.9 - OTHER SPECIFIED HEALTH STATUS SNOMED Code(s): 822417556 (6) DVT prophylaxis Current Visit: No Status: Acute Code(s): Z29.9 - ENCOUNTER FOR PROPHYLACTIC MEASURES, UNSPECIFIED SNOMED Code(s): 888608146 Comment: - Lovenox
[2019-02-25] MEDS: Enoxaparin(*) 40 MG/0.4 ML SYR SUBCUT SCH (21:08)
[2019-02-26] MEDS: oxyCODONE TAB* 5 MG TAB PO PRN ×2 (02:03→21:24)
[2019-02-26 07:43] LABS: Albumin 2.8 g/dL (3.2-5.2); Albumin/Globulin Ratio 0.7 (1-3); BUN/Creatinine Ratio 15.5 (8-20); Calcium 8.4 mg/dL (8.6-10.3); EGFR Non-African American 94.2 (>60); Globulin 3.8 g/dL (2-4); Potassium 4.5 mmol/L (3.5-5.0); Total Protein 6.6 g/dL (6.4-8.9)
[2019-02-26] MEDS: Lactulose* 15 ML UDC PO SCH (10:19)
[2019-02-26] MEDS: Furosemide TAB* 40 MG PO SCH (10:19)
[2019-02-26] MEDS: RiFAXimin* 550 MG TAB PO SCH ×2 (10:19→21:12)
[2019-02-26] MEDS: Spironolactone TAB* 25 MG PO SCH (10:19)
[2019-02-26] MEDS ORDERED: Azithromycin TAB* 250 MG PO ONE (14:40)
[2019-02-26] MEDS: predniSONE TAB* 50 MG PO SCH (15:15)
--- NOTE | 2019-02-26 18:15 | PN ---
Subjective Date of Service: 02/26/19 Interval History: Patient feels his shortness of breath is improved. He is still hypoxic with ambulation, not able to maintain good saturations unless on 6L. He feels his cough is improving but still present. Tells me the cough is less productive. Denies fever/chills, abd pain, nausea, chest pain. Objective Active Medications: Azithromycin (Zithromax Tab*) 250 mg PO DAILY [facility] Enoxaparin Sodium (Lovenox(*)) 40 mg SUBCUT Q24H [facility] Last Admin: 02/25/19 21:08 Dose: Not Given Furosemide (Lasix Tab*) 40 mg PO DAILY [facility] Last Admin: 02/26/19 10:19 Dose: 40 mg Ceftriaxone Sodium 1 gm/ (Sodium Chloride) 50 mls @ 100 mls/hr IVPB 2100 [facility] Last Admin: 02/25/19 21:05 Dose: 100 mls/hr Ipratropium [place] (Atrovent 0.5 Mg Neb.Yola*) 0.5 mg INH Q4H PRN PRN Reason: SOB/WHEEZING Last Admin: 02/25/19 16:35 Dose: 0.5 mg Lactulose (Lactulose*) 15 ml PO DAILY [facility] Last Admin: 02/26/19 10:19 Dose: 15 ml Ondansetron HCl (Zofran Inj*) 4 mg IV Q6H PRN PRN Reason: NAUSEA Last Admin: 02/25/19 07:23 Dose: 4 mg Oxycodone HCl (Roxycodone Tab*) 5 mg PO Q6H PRN PRN Reason: PAIN Last Admin: 02/26/19 02:03 Dose: 5 mg Prednisone (Deltasone Tab*) 50 mg PO DAILY [facility] Last Admin: 02/26/19 15:15 Dose: 50 mg Rifaximin (Xifaxan*) 550 mg PO BID [facility] Last Admin: 02/26/19 10:19 Dose: 550 mg Spironolactone (Aldactone Tab*) 25 mg PO DAILY [facility] Last Admin: 02/26/19 10:19 Dose: 25 mg Vital Signs - 8 hr 02/26/19 02/26/19 11:07 15:15 Temperature 98.3 F 97.9 F Pulse Rate 79 69 Respiratory 20 18 Rate Blood Pressure 106/70 99/65 (mmHg) O2 Sat by Pulse 93 93 Oximetry Oxygen Devices in Use Now: Nasal Cannula Appearance: Thin, middle aged male, laying in bed, appearing in NAD Eyes: No Scleral Icterus, PERRLA Ears/Nose/Mouth/Throat: Mucous Membranes Moist Neck: NL Appearance and Movements; NL JVP Respiratory: Symmetrical Chest Expansion and Respiratory Effort, Clear to Auscultation Cardiovascular: NL Sounds; No Murmurs; No JVD, RRR Abdominal: - - abdomen soft, nontender, minimally distended; normoactive [id number] Extremities: No Edema, No Clubbing, Cyanosis Skin: No Rash or Ulcers Neurological: Alert and Oriented x 3, NL Muscle Strength and Tone Result Diagrams: 02/25/19 06:25 02/26/19 06:43 Microbiology and Other Data: Microbiology 02/24/19 17:43 Aerobic Blood Culture - Preliminary Blood Venous No Growth Day 1 Anaerobic Blood Culture - Preliminary No Growth Day 1 02/24/19 16:58 Aerobic Blood Culture - Preliminary Blood Venous No Growth Day 1 Anaerobic Blood Culture - Preliminary No Growth Day 1 Assess/Plan/Problems-Billing Assessment: 58 yo male with PMHx cirrhosis, hepatocellular cancer, hx of hepatitis C, and HFpEF presents with hypoxia and chronic cough. - Patient Problems (1) Hypoxia Current Visit: Yes Status: Acute Code(s): R09.02 - HYPOXEMIA SNOMED Code(s ): 318713488 Comment: -CTA negative for PE, CXR without pneumonia but does demonstrate interstitial fibrosis -good saturations on 2L oxygen today, but required 6L to maintain saturations with ambulation -seen in consultation by Dr. Stallworth, suspects the patient has COPD given chronic cough, work exposures, and smoking history. He will likely need follow up outpatient to have PFTs -starting prn atrovent and flutter valve per Dr. Stallworth's recommendation -continue ceftriaxone, starting azithromycin and prednisone given that this may be an exacerbation and he is not improving -questioning if his ascites is contributing; consulted oncology and appreciate their involvement for a paracentesis (2) Left shoulder pain Current Visit: Yes Status: Acute Code(s): M25.512 - PAIN IN LEFT SHOULDER SNOMED Code(s): 04877665 Comment: -EKG without ischemic changes -continue oxycodone (which patient takes for pain related to cancer) -no complaints today (3) Hepatocellular carcinoma Current Visit: No Status: Acute Code(s): C22.0 - LIVER CELL CARCINOMA SNOMED Code(s): 522672563 Comment: - On transplant list at [facility] - Continue home lactulose and oxycodone - Routinely received paracentesis outpatient, last one was 02/20/19. Ascites observed on CTA on admission. This may be contributing to shortness of breath, appreciate additional paracentesis by oncology service (4) (HFpEF) heart failure with preserved ejection fraction Current Visit: Yes Status: Acute Code(s): I50.30 - UNSPECIFIED DIASTOLIC ( CONGESTIVE) HEART FAILURE SNOMED Code(s): 815409772 Comment: -continue home lasix and spironolactone (5) Full code status Current Visit: Yes Status: Acute Code(s): Z78.9 - OTHER SPECIFIED HEALTH STATUS SNOMED Code(s): 157647058 (6) DVT prophylaxis Current Visit: No Status: Acute Code(s): Z29.9 - ENCOUNTER FOR PROPHYLACTIC MEASURES, UNSPECIFIED SNOMED Code(s): 008098521 Comment: - Lovenox
[2019-02-26] MEDS: cefTRIAXone(*) 1 GM in NS 0.9% 50 ML* 50 ML IVPB SCH (21:06)
[2019-02-26] MEDS: Enoxaparin(*) 40 MG/0.4 ML SYR SUBCUT SCH (21:10)
[2019-02-27] MEDS: oxyCODONE TAB* 5 MG TAB PO PRN ×3 (06:22→21:57)
[2019-02-27] MEDS: Lactulose* 15 ML UDC PO SCH (08:36)
[2019-02-27] MEDS: predniSONE TAB* 50 MG PO SCH (08:36)
[2019-02-27] MEDS: Azithromycin TAB* 250 MG PO SCH (08:36)
[2019-02-27] MEDS: Furosemide TAB* 40 MG PO SCH (08:36)
[2019-02-27] MEDS: Spironolactone TAB* 25 MG PO SCH (08:36)
[2019-02-27] MEDS: RiFAXimin* 550 MG TAB PO SCH ×2 (10:01→21:56)
[2019-02-27] MEDS ORDERED: Ipratropium 0.5MG/2.5ML NEB* 0.5 MG/2.5 ML NEB.SOLN INH SCH (15:00)
--- NOTE | 2019-02-27 16:17 | PN ---
Progress Note - Progress Note Date of Service: 02/27/19 - Pulm f/u Note: Pt seen and examined at bedside. Pt reports improved breathing and cough. Active Medications Generic Name Dose Route Start Last Admin Trade Name Freq PRN Reason Stop Dose Admin Azithromycin 250 mg 02/27/19 09:00 02/27/19 08:36 Zithromax Tab* PO 250 mg DAILY MICHAEL Administration Enoxaparin Sodium 40 mg 02/25/19 19:00 02/26/19 21:10 Lovenox(*) SUBCUT Not Given Q24H MICHAEL Furosemide 40 mg 02/25/19 09:00 02/27/19 08:36 Lasix Tab* PO 40 mg DAILY [facility] Administration Ceftriaxone Sodium 1 gm/ 50 mls @ 100 mls/hr 02/25/19 00:01 02/26/19 21:06 Sodium Chloride IVPB 100 mls/hr 2100 [facility]EL Administration Ipratropium [place] 0.5 mg 02/27/19 19:00 Atrovent 0.5 Mg Neb.Yola* INH [id number] AWAKE MICHAEL Lactulose 15 ml 02/25/19 09:00 02/27/19 08:36 Lactulose* PO 15 ml DAILY [facility] Administration Ondansetron HCl 4 mg 02/24/19 22:53 02/25/19 07:23 Zofran Inj* IV 4 mg Q6H PRN Administration NAUSEA Oxycodone HCl 5 mg 02/24/19 22:51 02/27/19 13:29 Roxycodone Tab* PO 5 mg Q6H PRN Administration PAIN Prednisone 50 mg 02/26/19 15:00 02/27/19 08:36 Deltasone Tab* PO 50 mg DAILY MICHAEL Administration Rifaximin 550 mg 02/25/19 09:00 02/27/19 10:01 Xifaxan* PO 550 mg BID MICHAEL Administration Spironolactone 25 mg 02/25/19 09:00 02/27/19 08:36 Aldactone Tab* PO 25 mg DAILY [facility]EL Administration Vital Signs Temp Pulse Resp BP Pulse Ox 97.4 F 76 16 107/68 92 02/27/19 11:15 02/27/19 14:26 02/27/19 14:26 02/27/19 11:15 02/27/19 14:26 O/E: Pt in NAD HEENT: PERRLA, no JVD Lungs: Good a/e b/l CVS: S1, S2+ Abd: Distended, ascites + Ext: Normal ROM Neuro: NO focal deficits Skin: Spider nevi+ Labs: No new labs I/R: 58 yo male with PMHx cirrhosis, hepatocellular cancer, hx of hepatitis C, and HFpEF presents with worsening SOB with no relief even after paracentesis and was found to have hypoxic resp failure Pt reports improvement in SOB and chronic cough. Reports significant benefit with flutter device Atrovent nebulizer was started today Pt requiring 2L O2 at rest and 6L with exertion Hypoxia is combination of COPD/emphysema, bronchitis/PNA, underlying liver failure with V/Q mismatch ABG pending today To rpt 6MWT tomorrow D/w Camila Givens f/u
[2019-02-27] MEDS: Enoxaparin(*) 40 MG/0.4 ML SYR SUBCUT SCH (19:00)
--- NOTE | 2019-02-27 19:09 | PN ---
Subjective Date of Service: 02/27/19 Interval History: Patient tells me he feels back to his baseline. However, he is requiring 6L of oxygen while ambulating to maintain oxygen saturation above 88%. He has used oxygen at home for a month in the past. Tells me his cough is far improved and no longer has sputum production. Denies fever/chills, abd pain, nausea, chest pain, shortness of breath. Objective Active Medications: Azithromycin (Zithromax Tab*) 250 mg PO DAILY [facility] Last Admin: 02/27/19 08:36 Dose: 250 mg Enoxaparin Sodium (Lovenox(*)) 40 mg SUBCUT Q24H [facility] Last Admin: 02/26/19 21:10 Dose: Not Given Furosemide (Lasix Tab*) 40 mg PO DAILY [facility] Last Admin: 02/27/19 08:36 Dose: 40 mg Ceftriaxone Sodium 1 gm/ (Sodium Chloride) 50 mls @ 100 mls/hr IVPB 2100 [facility] Last Admin: 02/26/19 21:06 Dose: 100 mls/hr Ipratropium [place] (Atrovent 0.5 Mg Neb.Yola*) 0.5 mg INH [id number] AWAKE [facility] Lactulose (Lactulose*) 15 ml PO DAILY [facility] Last Admin: 02/27/19 08:36 Dose: 15 ml Ondansetron HCl (Zofran Inj*) 4 mg IV Q6H PRN PRN Reason: NAUSEA Last Admin: 02/25/19 07:23 Dose: 4 mg Oxycodone HCl (Roxycodone Tab*) 5 mg PO Q6H PRN PRN Reason: PAIN Last Admin: 02/27/19 13:29 Dose: 5 mg Prednisone (Deltasone Tab*) 50 mg PO DAILY [facility] Last Admin: 02/27/19 08:36 Dose: 50 mg Rifaximin (Xifaxan*) 550 mg PO BID [facility] Last Admin: 02/27/19 10:01 Dose: 550 mg Spironolactone (Aldactone Tab*) 25 mg PO DAILY [facility] Last Admin: 02/27/19 08:36 Dose: 25 mg Vital Signs - 8 hr 02/27/19 02/27/19 02/27/19 11:15 13:29 14:26 Temperature 97.4 F Pulse Rate 81 76 Respiratory 20 16 16 Rate Blood Pressure 107/68 (mmHg) O2 Sat by Pulse 92 92 Oximetry Oxygen Devices in Use Now: Nasal Cannula Appearance: Thin, white male, laying in bed, appearing in NAD Eyes: No Scleral Icterus, PERRLA Ears/Nose/Mouth/Throat: Mucous Membranes Moist Neck: NL Appearance and Movements; NL JVP Respiratory: Symmetrical Chest Expansion and Respiratory Effort, Clear to Auscultation Cardiovascular: NL Sounds; No Murmurs; No JVD, RRR Abdominal: - - minimal distension, abd nontender Extremities: No Edema, No Clubbing, Cyanosis Skin: No Rash or Ulcers Neurological: Alert and Oriented x 3, NL Muscle Strength and Tone Result Diagrams: 02/25/19 06:25 02/26/19 06:43 Microbiology and Other Data: Microbiology 02/24/19 17:43 Aerobic Blood Culture - Preliminary Blood Venous No Growth Day 1 Anaerobic Blood Culture - Preliminary No Growth Day 1 02/24/19 16:58 Aerobic Blood Culture - Preliminary Blood Venous No Growth Day 1 Anaerobic Blood Culture - Preliminary No Growth Day 1 Assess/Plan/Problems-Billing Assessment: 58 yo male with PMHx cirrhosis, hepatocellular cancer, hx of hepatitis C, and HFpEF presents with hypoxia and chronic cough. - Patient Problems (1) Hypoxia Current Visit: Yes Status: Acute Code(s): R09.02 - HYPOXEMIA SNOMED Code(s ): 890027517 Comment: -CTA negative for PE, CXR without pneumonia but does demonstrate interstitial fibrosis -good saturations on 2L oxygen today, but required 6L to maintain saturations with ambulation, which is unchanged from yesterday -seen in consultation by Dr. Stallworth, suspects the patient has COPD given chronic cough, work exposures, and smoking history. He will likely need follow up outpatient to have PFTs -continue flutter valve, ceftriaxone, azithromycin, prednisone -scheduling atrovent with hope that this will improve his respiratory status -questioning if his ascites is contributing; patient tells me his abdomen is usually far more distended prior to needing paracentesis when he gets them outpatient -ordered ABG, pending (2) Hepatocellular carcinoma Current Visit: No Status: Acute Code(s): C22.0 - LIVER CELL CARCINOMA SNOMED Code(s): 064607225 Comment: - Cirrhosis on transplant list at [facility], received treatment at [facility] - Continue home lactulose and oxycodone - Routinely received paracentesis outpatient, last one was 02/20/19. Ascites observed on CTA on admission. This may be contributing to shortness of breath, but this seems less likely at this point (3) (HFpEF) heart failure with preserved ejection fraction Current Visit: Yes Status: Acute Code(s): I50.30 - UNSPECIFIED DIASTOLIC ( CONGESTIVE) HEART FAILURE SNOMED Code(s): 271197680 Comment: -continue home lasix and spironolactone -doesn't appear to have signs of acute exacerbation as lungs without pulm edema or pleural effusions on initial imaging (4) Full code status Current Visit: Yes Status: Acute Code(s): Z78.9 - OTHER SPECIFIED HEALTH STATUS SNOMED Code(s): 363726118 (5) DVT prophylaxis Current Visit: No Status: Acute Code(s): Z29.9 - ENCOUNTER FOR PROPHYLACTIC MEASURES, UNSPECIFIED SNOMED Code(s): 685948579 Comment: - Lovenox
[2019-02-27] MEDS: Ipratropium 0.5MG/2.5ML NEB* 0.5 MG/2.5 ML NEB.SOLN INH SCH (20:08)
[2019-02-27] MEDS ORDERED: Melatonin 3 MG TAB PO SCH (21:00)
[2019-02-27] MEDS: cefTRIAXone(*) 1 GM in NS 0.9% 50 ML* 50 ML IVPB SCH (21:55)
[2019-02-28] MEDS: Ipratropium 0.5MG/2.5ML NEB* 0.5 MG/2.5 ML NEB.SOLN INH SCH ×2 (01:51→08:17)
[2019-02-28 05:56] LABS: Albumin 2.8 g/dL (3.2-5.2); Albumin/Globulin Ratio 0.7 (1-3); Calcium 8.7 mg/dL (8.6-10.3); EGFR African American 161.8 (>60); EGFR Non-African American 133.7 (>60); Potassium 4.4 mmol/L (3.5-5.0); Total Bilirubin 1.7 mg/dL (0.2-1.0); Total Protein 6.8 g/dL (6.4-8.9)
[2019-02-28] MEDS ORDERED: Adenosine* 3 MG/ML VIAL IV PUSH ONE (06:50)
[2019-02-28] MEDS ORDERED: Ipratropium 0.5MG/2.5ML NEB* 0.5 MG/2.5 ML NEB.SOLN INH PRN ×2 (08:18→08:20)
[2019-02-28] MEDS: Spironolactone TAB* 25 MG PO SCH (08:20)
[2019-02-28] MEDS: predniSONE TAB* 50 MG PO SCH (08:20)
[2019-02-28] MEDS: Furosemide TAB* 40 MG PO SCH (08:21)
[2019-02-28] MEDS: Lactulose* 15 ML UDC PO SCH (08:21)
[2019-02-28] MEDS: Azithromycin TAB* 250 MG PO SCH (08:21)
[2019-02-28] MEDS: RiFAXimin* 550 MG TAB PO SCH (08:21)
[2019-02-28] MEDS ORDERED: Calcium Carbonate CHEW TAB* 500 MG (TUMS) PO ONE (13:32)
[2019-02-28] MEDS ORDERED: Pantoprazole TAB * 40 MG TAB PO ONE (13:32)
[2019-02-28 13:35] VITALS: BP 99/59
--- NOTE | 2019-02-28 15:32 | DS ---
CC: Dr. Marlin Colmenares; Dr. Hannah Stallworth; Anthony Lunsford, Liver Transplant Team; Dr. Ellie Hernandez * DISCHARGE SUMMARY: DATE OF ADMISSION: 02/24/19 DATE OF DISCHARGE: 02/28/19 PRIMARY CARE PROVIDER: Dr. Marlin Colmenares. ONCOLOGIST: Dr. Ellie Hernandez. ATTENDING PHYSICIAN: Dr. Osman Garcia.* (DICTATED BY JANIS FARRELL NP) PRIMARY DIAGNOSES: 1. Hypoxia, suspected secondary to chronic obstructive pulmonary disease. 2. Paroxysmal supraventricular tachycardia. SECONDARY DIAGNOSES: 1. Hepatocellular carcinoma. 2. Heart failure with preserved ejection fraction. STUDIES WHILE IN THE HOSPITAL: 1. Chest x-ray on 02/24/19 reads as chronic prominence of interstitial markings with suggestion of mild interstitial fibrosis. Otherwise, clear lungs and pleural spaces. Negative for pneumothorax. The heart pulmonary vasculature and mediastinal contours are unremarkable. Mildly elevated right hemidiaphragm corresponding with mass effect from advanced hepatic cirrhosis with ascites on 01/02/[address] 2. EKG on 02/24/19 shows normal sinus rhythm with a rate of 78, QTc 454. No ST changes. 3. Chest/thorax CTA on 02/24/19 reads as no acute findings. No filling defects suspicious for pulmonary emboli are seen. There is no CT evidence of aortic dissection or leakage. No aortic aneurysm is appreciated. Redemonstration of cirrhotic liver changes. Large amount of ascites in the visualized upper abdomen. Splenomegaly. Upper abdominal varices. 4. EKG on 02/25/19 shows normal sinus rhythm with a rate of 79, QTc 445. No ischemic changes. 5. EKG on 02/28/19 shows supraventricular tachycardia with a rate of 150. 6. EKG on 02/28/19 shows normal sinus rhythm with a rate of 80, QTc 427. No ischemic changes. HISTORY OF PRESENT ILLNESS AND HOSPITAL COURSE: Mr. Collins is a 58-year-old male with past medical history of hepatitis C, cirrhosis and hepatocellular carcinoma, who presented to the emergency room on 02/24/19 with complaints of shortness of breath. Please see the history and physical by Dr. Pardo for a complete summary of the events leading up to this hospitalization. In short, the patient reported progressive shortness of breath and coughing over the last 7 to 8 months. He reported increased sputum. Of note, he does have somewhat regular paracenteses due to cirrhosis and last paracentesis was 4 days prior to his presentation to the emergency room. He is followed by the Transplant Team at [facility]. In the emergency room, the patient had lab work, which was remarkable for lactic acidosis, an elevated CRP, an ABG with an elevated pH and low CO2, and some other abnormalities which are consistent with his baseline. Due to his hypoxia noted in the emergency room, the patient was admitted by the hospitalist service. The patient was requiring 3.5 L of oxygen on the day of admission in order to maintain saturations in the 90s. Ultimately, during this hospitalization, he required up to 6 L. This was during ambulation. He was seen in consultation by Dr. Stallworth from Pulmonology on 02/25/19. She felt as though this may represent undiagnosed chronic obstructive pulmonary disease based on the patient 's history and findings on imaging. She recommended trialing an Atrovent nebulizer and encouraging incentive spirometry and deep breathing. The patient showed somewhat slow improvement in symptoms. At one point, there was concern that his ascites may have been contributing to shortness of breath, though at this point the patient does not have a significant amount of ascites and he has been having regular paracenteses as an outpatient, so it is very unlikely that this was a contributing factor. The patient was started on azithromycin and ceftriaxone to cover for the possibility of a community-acquired pneumonia, though ultimately these antibiotics would also be beneficial for a chronic obstructive pulmonary disease exacerbation, which I think is the more likely scenario at this point. As of this morning, the patient is only requiring 2 L of oxygen at rest and with ambulation to maintain saturations above 88%. He denies any shortness of breath and is anxious to go home. I will note that this morning the patient did have approximately 1.5 hours of paroxysmal supraventricular tachycardia. The patient was symptomatic during this time and reported a pressure sensation in his left lower chest. The patient did report to me that he has had this sensation many times in his life. Typically, these episodes last 5 minutes or less. He did have 1 episode after his daughter's wedding that was sustained and at that point he went to the emergency room at [facility] where it sounds as though they pushed adenosine and he returned to normal sinus rhythm. This morning, ultimately, the patient self converted when he began crying, which likely induced a vasovagal response. On exam, he has no focal neurological deficits. He is alert and oriented x4. His heart has a regular rate and rhythm without murmurs, rubs, or gallops. His lungs are clear to auscultation without rhonchi, wheezes, or rales. There is no significant edema. Abdomen is soft, nontender with [id number] ascites noted. Physical exam is otherwise benign. Mr. Collins is stable for discharge today. Vital signs are as follows: Temp 98.3, heart rate 80, respiratory rate 20, oxygen saturation 91% on 2 L nasal cannula, blood pressure 99/59. DISCHARGE MEDICATIONS: New medications: 1. Albuterol MDI 1 to 2 puffs q.4 hours p.r.n. shortness of breath, wheezing. 2. Azithromycin 250 mg p.o. daily x2 days. 3. Cefdinir 300 mg p.o. b.i.d. x4 days. 4. Prednisone 10 mg tab taper (take 4 tabs for 2 days, then 3 tabs for 2 days, then 2 tabs for 2 days, then 1 tab for 2 days). Continued medications: 1. Furosemide 40 mg p.o. daily. 2. Lactulose 15 mL p.o. daily. 3. Oxycodone 5 mg p.o. q.6 hours p.r.n. pain. 4. Rifaximin 550 mg p.o. b.i.d. 5. Spironolactone 25 mg p.o. daily. 6. Guaifenesin 600 mg p.o. b.i.d. p.r.n. congestion. 7. Medical marijuana. 8. Ondansetron 4 mg p.o. q.4 hours p.r.n. nausea, vomiting. DISCHARGE PLAN: Mr. Collins will be discharged home. Activity will be as tolerated. Diet will be low-sodium as he was doing prior to admission. The patient is being sent home with oxygen and he should be wearing 2 L of oxygen at all times. This includes with rest and ambulation. He will need to wear this oxygen indefinitely until otherwise instructed by his primary care provider or clinical data management manager. Medications are noted above. The patient will need to take 2 additional days of azithromycin to complete 5 days and 4 days of cefdinir to complete a total of 7 days of antibiotic therapy to cover possible community- acquired pneumonia and/or COPD exacerbation. He has been on prednisone here in the hospital and will need to complete a prednisone taper as described above. I have also sent in a prescription for an albuterol inhaler. He can continue his other usual medications as noted above. He will need to continue to follow up with his oncologist as previously instructed. It is highly recommended that he follow up with Dr. Stallworth for formal pulmonary function testing. Regarding the paroxysmal supraventricular tachycardia, I do not think this warrants any treatment at this point as the patient was able to self convert and it sounds as though this is an infrequent, chronic issue, which has been going on undiagnosed for quite some time. He may benefit from a cardiology referral for long-term cardiac monitoring to determine the true frequency of these events, though I will defer further management to his primary care provider. He should follow up with his PCP in the next 4 to 7 days. He should return to the emergency room or nearest hospital for any worsening of symptoms, shortness of breath, lightheadedness, dizziness, chest discomfort, high fevers, chills, night sweats, loss of consciousness, or any other worrisome signs or symptoms. DISCHARGE CONDITION: Stable. DISCHARGE DISPOSITION: Home. This is a summarized report of a complex medical history and hospital stay. For further details, please see the entire medical record. TIME SPENT: Approximately 60 minutes was spent on this discharge. JANIS FARRELL NP [id number]/[facility] #: [id number] BARBARA
== END 2019-02-28 15:22 | disposition home or self-care (01) | DRG 140 ==
LOC: ED 15:45 → MEDTELE 22:49
PROVIDERS: ADMIT Internal Medicine; ATTEND Internal Medicine
DX: J44.1 Chronic obstructive pulmonary disease with (acute) exacerbation (principal); J18.9 Pneumonia, unspecified organism; C22.8 Malignant neoplasm of liver, primary, unspecified as to type; R18.8 Other ascites; I50.30 Unspecified diastolic (congestive) heart failure; E87.2 Acidosis; I47.1 Supraventricular tachycardia; K74.60 Unspecified cirrhosis of liver; B19.20 Unspecified viral hepatitis C without hepatic coma; K21.9 Gastro-esophageal reflux disease without esophagitis; M25.512 Pain in left shoulder; I11.0 Hypertensive heart disease with heart failure; J84.10 Pulmonary fibrosis, unspecified; I86.8 Varicose veins of other specified sites; R09.02 Hypoxemia; R16.1 Splenomegaly, not elsewhere classified; J44.0 Chronic obstructive pulmonary disease with (acute) lower respiratory infection; Z88.6 Allergy status to analgesic agent; Z87.11 Personal history of peptic ulcer disease; Z82.3 Family history of stroke; Z87.442 Personal history of urinary calculi; Z87.891 Personal history of nicotine dependence; Z99.81 Dependence on supplemental oxygen
CPT/HCPCS: 36415; 36600; 71046; 71275; 80048; 80053; 80076; 81003; 82550; 82553; 82803; 83605; 83735; 83880; 84484; 85025; 85610; 85730; 86140; 87040; 93005; 94640; 96374; 99283; A9270-GY; J0696; J1650; J2405; J7512; Q9967

== ENCOUNTER 2019-04-16 12:37 | Emergency (ER) | payer OTHER ==
--- OUTSIDE RECORDS SUMMARY | 2019-04-16 13:15 | XMS REPORT | Continuity of Care Document ---
:1960 External Reference #:[id number] Author Name Linden Read M.D. (transmitted by agent of provider Ileana Smith) Address [address] [facility] [facility] [place] [address] Care Team Providers Name Role Phone Marlin Colmenares MD - Internal Care Team Information Legal Entity Controller Medicine Ellie Hernandez MD - Hematology & Care Team Information Legal Entity Controller Oncology Problems Active Problems Provider Date Arthralgia of the pelvic region and thigh Linden Read M.D. Onset: 2017 Localized, primary osteoarthritis of the Linden Read M.D. Onset: 2017 pelvic region and thigh Current tear of medial cartilage AND/OR Linden Read M.D. Onset: 2017 meniscus of knee Social History Type Date Description Comments Sex Unknown ETOH Use Denies alcohol use Recreational Drug Use Medical THC Tobacco Use Start: Unknown End: Patient is a former Smoked 20 years Unknown smoker about 1/2 a pack a week Smoking Status Reviewed: 04/15/19 Patient is a former Smoked 20 years smoker about 1/2 a pack a week Exercise Type/Frequency Exercises sporadically Allergies, Adverse Reactions, Alerts Active Allergies Reaction Severity Comments Date Hydrocodone 11/29/2017 Inactive Allergies NKDA 10/17/2017 Medications Active Medications SIG Qnty Indications Ordering Date Provider Nebulizer 1 unit every 4-6 J44.9 Denise 03/20/2019 Device hours, as needed OZZIE Peck Nebulizer Use every 4-6 J44.9 Denise 03/20/2019 Kit/Tubing/Mouthpiece hours as OZZIE Peck instructed Kit Furosemide 1 by mouth every Unknown 40mg Tablets day Medical Marijuana vape at night Unknown Spironolactone 1 by mouth every Unknown 25mg day Tablets Oxycodone HCL Take 1 Tablet By Unknown 5mg Tablets Mouth Every 6 Hours as Needed . DO Not Exceed 4 Per 24 Hours Xifaxan Take 1 Tablet By Unknown 550mg Tablets Mouth Twice A Day Albuterol Sulfate HFA inhale 1 to 2 17gm Hannah Basim, puffs by mouth 108(90Base) mcg/Act every four hours Aerosol as needed for shortness of breath/wheezing Prednisone take 3 tabs for 3 20tabs Denise 10mg Tablets days, 2 tabs for OZZIE Peck 3 days, 1 tab for 3 days, 1/2 tab for 4 days Lactulose Take 30 MLS (20 G Unknown 10GM/15ML Total) By Mouth Solution Nightly Lorazepam Unknown 0.5mg Tablets Mucinex 1 by mouth twice Unknown 600mg Tablets ER a day 12HR Zofran take 1 tab prn Unknown 4mg Tablets Trazodone HCL 1 by mouth every Unknown 50mg day Tablets History Medications Azithromycin take 2 tablets 6tabs Denise 04/03/2019 - 250mg on day 1, then 1 OZZIE Peck 04/14/2019 Tablets tab daily for 4 days Ipratropium [place] 1 unit every 4-6 7.5ml J44.9 Denise 03/20/2019 - hours as needed OZZIE Peck 04/14/2019 0.02% Solution Immunizations Description No Information Available Vital Signs Date Vital Result Comment 04/15/2019 11:09am Height 67 inches 5'7" Weight 173.00 lb Heart Rate 98 /min BP Systolic Sitting 120 mmHg BP Diastolic Sitting 76 mmHg Body Temperature 97.8 F BMI (Body Mass Index) 27.1 kg/m2 03/20/2019 1:00pm Height 67 inches 5'7" Weight 161.38 lb Heart Rate 76 /min BP Systolic Sitting 116 mmHg Lue reg cuff BP Diastolic Sitting 82 mmHg Lue reg cuff O2 % BldC Oximetry 92 % On Ra BMI (Body Mass Index) 25.3 kg/m2 Results Test Acquired Date Facility Test Result H/L Range Note Order 03/06/2019 [employer] In-House 6 Minute <pending> Walk CBC Auto 01/27/2019 [facility] White Blood 7.4 10^3/uL Normal 3.5-10.[address] [place] [address] [phone] Red Blood Count 4.23 10^6/uL Normal 4.18-5.48 [...] Cells % 0.0 Comp Metabolic Panel 01/27/2019 [facility] Sodium 126 mmol/L Low 135-[address] [place] [address] [phone] Potassium 4.5 mmol/L Normal 3.5-5.0 Chloride 95 [...] >60 Egfr 117.2 >60 1 Inr/Protime 01/27/2019 [facility] Inr 1.50 High 0.82-1.[address] [place] [address] [phone] 1 Because ethnic data is not always [...] High intensity warfarin therapeutic range: 2.5-3.5 Procedures Date Code Description Status 03/18/2019 46742 Holter Monitor Review (24 hr)dr feliz & sal only Completed 03/06/2019 09740 [facility] Measurement Heart Rate, Completed Oximetry 02/28/2019 03319 EKG, Interpretation Only Completed 02/25/2019 86216 EKG, Interpretation Only Completed Medical Devices Description No Information Available Encounters Type Date Location Provider Dx Diagnosis Office Visit 03/20/2019 [facility] Denise Gutierrez44.9 Chronic 1:00p [facility]ck obstructive [employer] pulmonary disease, unspecified R09.02 Hypoxemia Office Visit 03/06/2019 1:00p Pulmonology Christian Gutierrez44.9 Chronic [facility] Basim obstructive [employer] pulmonary disease, unspecified R09.02 Hypoxemia Office Visit 02/28/2019 2:15p [facility] Mary Michael, APPLIANCE REPAIRER R09.02 Hypoxemia Assoc,pc Hospitalists I48.0 Paroxysmal atrial fibrillation C22.0 Liver cell carcinoma I50.30 Unspecified diastolic (congestive) heart failure Office Visit 02/27/2019 11:04a [facility] Hannah J96.01 Acute respiratory [facility] Basim failure with [employer] hypoxia Office Visit 02/27/2019 2:15p [facility] Camila R09.02 Hypoxemia Assoc,carey Francois, PAKoryC Hospitalists M25.512 Pain in left shoulder I50.30 Unspecified diastolic (congestive) heart failure Office Visit 02/26/2019 2:14p [facility] Camila Francois, R09.02 Hypoxemia Assoc,pc Hospitalists PA-C M25.512 Pain in left shoulder C22.0 Liver cell carcinoma I50.30 Unspecified diastolic (congestive) heart failure Office Visit 02/25/2019 12:07p [facility] And Hannah Basim, R18.8 Other ascites [facility] R06.02 Shortness of breath Z87.19 Personal history of other diseases of the digestive system Z85.05 Personal history of malignant neoplasm of liver Z87.891 Personal history of nicotine dependence Z87.09 Personal history of other diseases of the respiratory system Office Visit 02/25/2019 2:13p [facility] Camila Francois, R09.02 Hypoxemia Assoc,pc Hospitalists PA-C M25.512 Pain in left shoulder C22.0 Liver cell carcinoma I50.30 Unspecified diastolic (congestive) heart failure Office Visit 02/24/2019 [facility] Stephon Rocha R06.00 Dyspnea, 2:13p Assoc,carey Pardo M.D.,FACP unspecified Hospitalists R09.02 Hypoxemia Office Visit 02/18/2019 [place] Linden M16.52 Unilateral 8:00a [facility] post-traumatic Geff osteoarthritis, left hip Office Visit 12/31/2018 [facility] Cheatham M16.52 Unilateral 2:15p Orthopedics brennon Read M.D. 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, left hip M53.3 Sacrococcygeal disorders, not elsewhere classified Office Visit 11/05/2018 9:24a [facility] Stephon Rocha R18.8 Other ascites Assoc,carey Pardo M.D.,FACP Hospitalists K74.60 Unspecified cirrhosis of liver B19.20 Unspecified viral hepatitis C without hepatic coma K76.9 Liver disease, unspecified C22.0 Liver cell carcinoma M19.90 Unspecified osteoarthritis, unspecified site Z86.61 Personal history of infections of the central nervous system M81.0 Age-related osteoporosis w/o current pathological fracture Office Visit 11/04/2018 9:24a [facility] Federica R06.02 Shortness of Assoc,carey Schuster, breath Hospitalists APPLIANCE REPAIRER C22.0 Liver cell carcinoma Office Visit 10/18/2018 [facility] Rodrigo S22.43xA Multiple 11:36a Assoc,carey Zafar M.D. fractures of Hospitalists ribs, bilateral, init for clos fx C22.0 Liver cell carcinoma R18.8 Other ascites B18.2 Chronic viral hepatitis C Office Visit 10/16/2018 [place] Neli M16.12 Unilateral primary 12:05p [facility] at [place] osteoarthritis, left [place] hip S22.43xA Multiple fractures of ribs, bilateral, init for clos fx W19.xxxA Unspecified fall, initial encounter Office Visit 10/15/2018 11:36a [facility] Cristina Palacios, M25.552 Pain in Assoc,pc DO left hip Hospitalists R07.81 Pleurodynia Assessments Date Code Description Provider 04/15/2019 M16.52 Unilateral post-traumatic Linden Read M.D. osteoarthritis, left hip 03/20/2019 J44.9 Chronic obstructive pulmonary Denise Peck NP disease, unspecified 03/20/2019 R09.02 Hypoxemia Denise Peck NP 03/18/2019 I47.1 Supraventricular tachycardia Gurinder Roman M.D. 03/06/2019 J44.9 Chronic obstructive pulmonary Hannah Stallworth MD disease, unspecified 03/06/2019 R09.02 Hypoxemia Hannah Stallworth MD 02/28/2019 R94.31 Abnormal electrocardiogram [ECG] Dread Colmenares M.D., [EKG] [facility] 02/28/2019 R09.02 Hypoxemia Mary Michael, APPLIANCE REPAIRER 02/28/2019 I48.0 Paroxysmal atrial fibrillation Mary Michael, APPLIANCE REPAIRER 02/28/2019 C22.0 Liver cell carcinoma Mary Michael, APPLIANCE REPAIRER 02/28/2019 I50.30 Unspecified diastolic (congestive) Mary Michael, APPLIANCE REPAIRER heart failure 02/27/2019 J96.01 Acute respiratory failure with Hannah Stallworth MD hypoxia 02/27/2019 R09.02 Hypoxemia Camila O'unruly, PA-C 02/27/2019 M25.512 Pain in left shoulder Camila O'unruly, PA-C 02/27/2019 I50.30 Unspecified diastolic (congestive) Camila O'unruly, PA-C heart failure 02/26/2019 R09.02 Hypoxemia Camila O'unruly, PA-C 02/26/2019 M25.512 Pain in left shoulder Camila O'unruly, PA-C 02/26/2019 C22.0 Liver cell carcinoma Camila O'unruly, PA-C 02/26/2019 I50.30 Unspecified diastolic (congestive) Camila O'unruly, PA-C heart failure 02/25/2019 R94.31 Abnormal electrocardiogram [ECG] Chuy Casas M.D. [EKG] 02/25/2019 R09.02 Hypoxemia Camila Escalante'unruly PA-C 02/25/2019 R18.8 Other ascites Hannah Stallworth MD 02/25/2019 M25.512 Pain in left shoulder Camila Boris'unruly PA-C 02/25/2019 R06.02 Shortness of breath Hannah Stallworth MD 02/25/2019 C22.0 Liver cell carcinoma Camila O'unruly ANISH 02/25/2019 Z87.19 Personal history of other diseases of Hannah Stallworth MD the digestive system 02/25/2019 I50.30 Unspecified diastolic (congestive) Camila Francois PA-C heart failure 02/25/2019 Z85.05 Personal history of malignant Hannah Stallworth MD neoplasm of liver 02/25/2019 Z87.891 Personal history of nicotine Hannah Stallworth MD dependence 02/25/2019 Z87.09 Personal history of other diseases of Hannah Stallworth MD the respiratory system 02/24/2019 R06.00 Dyspnea, unspecified Stephon Pardo M.D.,FACP 02/24/2019 R09.02 Hypoxemia [facility]phon [facility] M.[facility].,[facility] 02/18/2019 M16.52 Unilateral post-traumatic Linden Read M.D. osteoarthritis, left hip 12/31/2018 M16.52 Unilateral post-traumatic Linden Read M.D. osteoarthritis, left hip 11/14/2018 M16.52 Unilateral post-traumatic Linden Read M.D. osteoarthritis, left hip 11/14/2018 M16.52 Unilateral post-traumatic Linden Read M.D. osteoarthritis, left hip 11/14/2018 M53.3 Sacrococcygeal disorders, not Linden Read M.D. elsewhere classified 11/05/2018 R18.8 Other ascites Stephon Pardo M.D.,[facility] 11/05/2018 K74.60 Unspecified cirrhosis of liver Stephon Pardo M.D., FACP 11/05/2018 B19.20 Unspecified viral hepatitis C without Stephon Pardo M.D.,[facility] hepatic coma 11/05/2018 K76.9 Liver disease, unspecified Stephon Pardo M.D.,FACP 11/05/2018 C22.0 Liver cell carcinoma Stephon Pardo M.D.,FACP 11/05/2018 M19.90 Unspecified osteoarthritis, Stephon Pardo M.D.,FACP unspecified site 11/05/2018 Z86.61 Personal history of infections of the Stephon Pardo M.D.,FACP central nervous system 11/05/2018 M81.0 Age-related osteoporosis w/o current Stephon Pardo M.D.,[facility] pathological fracture 11/04/2018 R06.02 Shortness of breath Federica Schuster, APPLIANCE REPAIRER 11/04/2018 C22.0 Liver cell carcinoma Federica Schuster, APPLIANCE REPAIRER 10/18/2018 S22.43xA Multiple fractures of ribs, Rodrigo Zafar M.D. bilateral, init for clos fx 10/18/2018 C22.0 Liver cell carcinoma Rodrigo Zafar M.D. 10/18/2018 R18.8 Other ascites Rodrigo Zfaar M.D. 10/18/2018 B18.2 Chronic viral hepatitis C [...] M25.552 Pain in left hip Cristina Palacios, 10/15/2018 R07.81 Pleurodynia Cristina Palacios, Plan of Treatment Future Appointment(s):06/03/2019 9:45 am - Linden Read M.D. at [place] [facility]03/04/2019 9:00 am - Denise Peck NP at [facility]09/04/2019 1:30 pm - aHnnah Stallworth MD at [facility]04/15/2019 - Linden Read M.D.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, left hipFollow up:6 to 8 weeks Functional Status Description No Information Available Mental Status Description No Information Available Referrals Description No Information Available
--- OUTSIDE RECORDS SUMMARY | 2019-04-16 13:16 | XMS REPORT | Continuity of Care Document ---
:1960 External Reference #:[id number] Author Name Denise Peck NP (transmitted by agent of provider Bing Holcomb) Address [address], [address] [place] [id number] Care Team Providers Name Role Phone Marlin Colmenares MD - Internal Care Team Information Power Plant Operator Apprentice [phone] Medicine Ellie Hernandez MD - Hematology & Care Team Information Power Plant Operator Apprentice Oncology Problems Active Problems Provider Date Arthralgia [...] a pack a week Smoking Status Reviewed: 03/20/19 Patient is a former Smoked 20 years smoker about 1/2 a pack a week Exercise Type/Frequency Exercises sporadically Allergies, Adverse Reactions, Alerts Active Allergies Reaction Severity Comments Date Hydrocodone 11/29/2017 Inactive Allergies NKDA 10/17/2017 Medications Active Medications SIG Qnty Indications Ordering Date Provider Ipratropium [place] 1 unit every 4-6 7.5ml J44.9 Denise 03/20/2019 0.02% hours as needed OZZIE Peck Solution Nebulizer 1 unit every 4-6 J44.9 Denise 03/20/2019 Device hours, as needed OZZIE Peck Nebulizer Use every 4-6 J44.9 Denise 03/20/2019 Kit/Tubing/Mouthpiece hours as OZZIE Peck instructed Kit Furosemide 1 by mouth every Unknown 40mg Tablets day Medical Marijuana vape at night Unknown Omeprazole 1 by mouth every Unknown 20mg Capsules day Spironolactone 1 by mouth every Unknown 100mg day Tablets Lactulose take 15ml 4 times Unknown Encephalopathy daily as needed 10GM/15ML Solution Oxycodone HCL Take 1 Tablet By Unknown 5mg Tablets Mouth Every 6 Hours as Needed . DO Not Exceed 4 Per 24 Hours Xifaxan Take 1 Tablet By Unknown 550mg Tablets Mouth Twice A Day Albuterol Sulfate HFA inhale 1 to 2 17gm Hannah Basim, puffs by mouth 108(90Base) mcg/Act every four hours Aerosol as needed for shortness of breath/wheezing Prednisone Take 4 Tabs For 2 Unknown 10mg Tablets Days, 3 Tabs For 2 Days, 2 Tabs For 2 Days, 1 Tab For 2 Days Lactulose Take 30 MLS (20 G Unknown 10GM/15ML Total) By Mouth Solution Nightly Benzonatate Take One Capsule Unknown 100mg By Mouth 3 Times A Capsules Day as Needed For Cough Lorazepam Unknown 0.5mg Tablets Immunizations Description No Information Available Vital Signs Date Vital Result Comment 03/20/2019 1:00pm Height 67 inches 5'7" Weight 161.38 lb Heart Rate 76 /min BP Systolic Sitting 116 mmHg Lue reg cuff BP Diastolic Sitting 82 mmHg Lue reg cuff O2 % BldC Oximetry 92 % On Ra BMI (Body Mass Index) 25.3 kg/m2 03/06/2019 1:00pm Height 67 inches 5'7" Weight 156.00 lb Heart Rate 78 /min BP Systolic Sitting 100 mmHg BP Diastolic Sitting 80 mmHg O2 % BldC Oximetry 91 % BMI (Body Mass Index) 24.4 kg/m2 Results Test Date Facility Test Result H/L Range Note Order 03/06/2019 [facility] In-House 6 Minute Walk <pending> CBC Auto Diff 01/27/2019 [facility] White Blood 7.4 10^3/uL Normal 3.5-10.[address] [place] [address] [phone] Red Blood Count 4.23 10^6/uL Normal 4.18-5.48 [...] Cells % 0.0 Comp Metabolic Panel 01/27/2019 [facility] Sodium 126 mmol/L Low 135-[address] [place] [address] [phone] Potassium 4.5 mmol/L Normal 3.5-5.0 Chloride 95 [...] >60 Egfr 117.2 >60 1 Inr/Protime 01/27/2019 [facility] Inr 1.50 High 0.82-1.[address] [place] [address] [phone] 1 Because ethnic data is not always [...] 2.5-3.5 Procedures Date Code Description Status 03/18/2019 67593 Holter Monitor Review (24 hr)dr feliz & sal only Completed 03/06/2019 87364 [facility] Measurement Heart Rate, Completed Oximetry Medical Devices Description No Information Available Encounters Type Date Location Provider Dx Diagnosis Office Visit 03/06/2019 Pulmonology And Hannah Stallworth, J44.9 Chronic obstructive 1:00p Sleep Services Of pulmonary disease, [employer] unspecified R09.02 Hypoxemia Office Visit 02/27/2019 11:04a Pulmonology Eduardo Young J96.01 Acute respiratory Sleep Services Of [facility] Basim failure with [facility] [employer] hypoxia Office Visit 02/27/2019 2:15p [facility] Camila R09.02 Hypoxemia Assoc,carey Francois, PAKoryC Hospitalists M25.512 Pain in left shoulder I50.30 Unspecified diastolic (congestive) heart failure Office Visit 02/26/2019 2:14p [facility] Camila Francois, R09.02 Hypoxemia Assoc, Hospitalists ANISH M25.512 Pain in left shoulder C22.0 Liver cell carcinoma I50.30 Unspecified diastolic (congestive) heart failure Office Visit 02/25/2019 2:13p [facility] Camila Francois, R09.02 Hypoxemia Assoc, Hospitalists ERIKAC M25.512 Pain in left shoulder C22.0 Liver cell carcinoma I50.30 Unspecified diastolic (congestive) heart failure Office Visit 02/25/2019 12:07p Pulmonology And Hannah Stallworth, R18.8 Other ascites [facility] [place] R06.02 Shortness of breath Z87.19 Personal history of other diseases of the digestive system Z85.05 Personal history of malignant neoplasm of liver Z87.891 Personal history of nicotine dependence Z87.09 Personal history of other diseases of the respiratory system Office Visit 02/24/2019 [facility] Stephon Rocha R06.00 Dyspnea, 2:13p Assoc,carey Pardo M.D.,FACP unspecified Hospitalists R09.02 Hypoxemia Office Visit 02/18/2019 [facility] [place] M16.52 Unilateral 8:00a [facility]oped[facility] at [facility] post-traumatic [place] osteoarthritis, left hip Office Visit 12/31/2018 [facility] [place] M16.52 Unilateral 2:15p [facility]oped[facility] at [facility] post-traumatic [place] osteoarthritis, left hip Office Visit 11/14/2018 [place] M16.52 Unilateral 9:30a [facility] at [facility] post-traumatic [place] osteoarthritis, left hip 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, left hip M53.3 Sacrococcygeal disorders, not elsewhere classified Office Visit 11/05/2018 9:24a [facility] Stephon Rocha R18.8 Other ascites Assoc,carey Pardo M.D.,FACP Hospitalists K74.60 Unspecified cirrhosis of liver B19.20 Unspecified viral hepatitis C without hepatic coma K76.9 Liver disease, unspecified C22.0 Liver cell carcinoma M19.90 Unspecified osteoarthritis, unspecified site Z86.61 Personal history of infections of the central nervous system M81.0 Age-related osteoporosis w/o current pathological fracture Office Visit 11/04/2018 9:24a [facility] Federica R06.02 Shortness of Assoc,pc Geoff Schuster, breath Hospitalists REHABILITATION PROGRAM MANAGER C22.0 Liver cell carcinoma Office Visit 10/18/2018 [facility] Rodrigo S22.43xA Multiple 11:36a Assoc,pc Arthur Zafar fractures of Hospitalists ribs, bilateral, init for clos fx C22.0 Liver cell carcinoma R18.8 Other ascites B18.2 Chronic viral hepatitis C Office Visit 10/16/2018 [place]eli M16.12 Unilateral primary 12:05p Orthopedics at [facility] [place] osteoarthritis, left [place] hip S22.43xA Multiple fractures of ribs, bilateral, init for clos fx W19.xxxA Unspecified fall, initial encounter Office Visit 10/15/2018 11:36a [facility] Cristina Palacios, M25.552 Pain in Assoc,pc DO left hip Hospitalists R07.81 Pleurodynia Office Visit 09/20/2018 [facility] [place] M16.12 Unilateral primary 9:30a [facility] at [facility] osteoarthritis, left [place] hip Assessments Date Code Description Provider 03/20/2019 J44.9 Chronic obstructive pulmonary Denise Peck NP disease, unspecified 03/20/2019 R09.02 Hypoxemia Denise Peck NP 03/18/2019 I47.1 Supraventricular tachycardia Gurinder Roman M.D. 03/06/2019 J44.9 Chronic obstructive pulmonary Hannah Stallworth MD disease, unspecified 03/06/2019 R09.02 Hypoxemia Hannah Stallworth MD 02/27/2019 J96.01 Acute respiratory failure with Hannah Stallworth MD hypoxia 02/27/2019 R09.02 Hypoxemia Camila Francois PA-C 02/27/2019 M25.512 Pain in left shoulder Camila Francois PA-C 02/27/2019 I50.30 Unspecified diastolic (congestive) Camila Francois PA-C heart failure 02/26/2019 R09.02 Hypoxemia Camila Francois PA-C 02/26/2019 M25.512 Pain in left shoulder Camila Francois PA-C 02/26/2019 C22.0 Liver cell carcinoma Camila Francois PA-C 02/26/2019 I50.30 Unspecified diastolic (congestive) Camila Francois PA-C heart failure 02/25/2019 R09.02 Hypoxemia Camila Francois PA-C 02/25/2019 R18.8 Other ascites Hannah Stallworth MD 02/25/2019 M25.512 Pain in left shoulder Camila Francois PA-C 02/25/2019 R06.02 Shortness of breath Hannah Stallworth MD 02/25/2019 C22.0 Liver cell carcinoma Camila Francois PA-C 02/25/2019 Z87.19 Personal history of other diseases Hannah Stallworth MD of the digestive system 02/25/2019 I50.30 Unspecified diastolic (congestive) Camila Francois PA-C heart failure 02/25/2019 Z85.05 Personal history of malignant Hannah Stallworth MD neoplasm of liver 02/25/2019 Z87.891 Personal history of nicotine Hannah Stallworth MD dependence 02/25/2019 Z87.09 Personal history of other diseases Hannah Stallworth MD of the respiratory system 02/24/2019 R06.00 Dyspnea, unspecified Stephon Pardo M.D.,FACP 02/24/2019 R09.02 Hypoxemia Stephon Pardo M.D.,FACP 02/18/2019 M16.52 Unilateral post-traumatic [facility] Read M.D. osteoarthritis, left hip 12/31/2018 M16.52 Unilateral post-traumatic Linden Read M.D. osteoarthritis, left hip 11/14/2018 M16.52 Unilateral post-traumatic Linden Read M.D. osteoarthritis, left hip 11/14/2018 M16.52 Unilateral post-traumatic Linden Read M.D. osteoarthritis, left hip 11/14/2018 M53.3 Sacrococcygeal disorders, not [facility] Read M.D. elsewhere classified 11/05/2018 R18.8 Other ascites [facility] 11/05/2018 K74.60 Unspecified cirrhosis of liver Stephon Pardo M.D., FACP 11/05/2018 B19.20 Unspecified viral hepatitis C [facility] without hepatic coma 11/05/2018 K76.9 Liver disease, unspecified Stephon Pardo M.D.,FACP 11/05/2018 C22.0 Liver cell carcinoma Stephon Pardo M.D.,FACP 11/05/2018 M19.90 Unspecified osteoarthritis, Stephon Pardo M.D.,[facility] unspecified site 11/05/2018 Z86.61 Personal history of infections of Stephon Pardo M.D., [facility] the central nervous system 11/05/2018 M81.0 Age-related osteoporosis w/o current Stephon Pardo M.D.,[facility] pathological fracture 11/04/2018 R06.02 Shortness of breath Federica Schuster, REHABILITATION PROGRAM MANAGER 11/04/2018 C22.0 Liver cell carcinoma Federica Schuster, REHABILITATION PROGRAM MANAGER 10/18/2018 S22.43xA Multiple fractures of ribs, Rodrigo [...] M.D. left hip Plan of Treatment Future Appointment(s):04/30/2019 9:00 am - Denise Peck NP at [facility]09/04/2019 1:30 pm - Hannah Stallworth MD at [facility]04/15/2019 11:15 am - [facility] Read M.D. at [facility] at [place]28/24/2019 - Denise Peck NPJ44.9 Chronic obstructive pulmonary disease, unspecifiedNew Medication:Ipratropium [place] 0.02 % - 1 unit every 4-6 hours as neededNebulizer - 1 unit every 4-6 hours, as neededNebulizer Kit/Tubing/Mouthpiece - Use every 4-6 hours as instructedFollow up:1 month (PFTs prior)R09.02 Hypoxemia Functional Status Description No Information Available Mental Status Description No Information Available Referrals Description No Information Available
--- OUTSIDE RECORDS SUMMARY | 2019-04-16 13:16 | XMS REPORT | Continuity of Care Document ---
:1960 External Reference #:[id number] Author Name Chuy Casas M.D. 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 White Blood 7.4 10^3/uL Normal 3.5-10.[address] [place] [address] [phone] Red Blood Count 4.23 10^6/uL Normal 4.18-5.48 [...] % 0.0 Comp Metabolic Panel 01/27/2019 [facility] Sodium 126 mmol/L Low 135-[address] [place] [address] [phone] Potassium 4.5 mmol/L Normal 3.5-5.0 Chloride 95 [...] Egfr 117.2 >60 1 Inr/Protime 01/27/2019 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, left hip M53.3 Sacrococcygeal disorders, not elsewhere classified Office Visit 11/05/2018 9:24a [facility] Stephon Rocha R18.8 Other ascites Assoc,carey Pardo M.D.,FACP Hospitalists K74.60 Unspecified cirrhosis of liver B19.20 Unspecified viral hepatitis C without hepatic coma K76.9 Liver disease, unspecified C22.0 Liver cell carcinoma M19.90 Unspecified osteoarthritis, unspecified site Z86.61 Personal history of infections of the central nervous system M81.0 Age-related osteoporosis w/o current pathological fracture Office Visit 11/04/2018 9:24a [facility] Federica R06.02 Shortness of Assoc,carey Schuster, breath 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 fractures of Hospitalists ribs, bilateral, init for clos fx C22.0 Liver cell carcinoma R18.8 Other ascites B18.2 Chronic viral hepatitis C Office Visit 10/16/2018 [place] Neli M16.12 Unilateral primary 12:05p Orthoped[facility] at [place], LOAN osteoarthritis, left [place] hip S22.43xA Multiple fractures of ribs, bilateral, init for clos fx W19.xxxA Unspecified fall, initial encounter Office Visit 10/15/2018 11:36a [facility] Cristina Palacios, M25.552 Pain in Assoc,pc DO left hip Hospitalists R07.81 Pleurodynia Office Visit 09/20/2018 [place] Linden M16.12 Unilateral primary 9:30a [facility] at [facility] osteoarthritis, left [place] hip Assessments Date Code Description Provider 02/18/2019 M16.52 Unilateral post-traumatic [facility] M.D. osteoarthritis, left hip 12/31/2018 M16.52 Unilateral post-traumatic [facility] M.D. osteoarthritis, left hip 11/14/2018 M16.52 Unilateral post-traumatic [facility] M.D. osteoarthritis, left hip 11/14/2018 M16.52 Unilateral post-traumatic [facility] M.D. osteoarthritis, left hip 11/14/2018 M53.3 Sacrococcygeal disorders, not iLnden Read M.D. elsewhere classified 11/05/2018 R18.8 Other ascites Stephon Pardo M.D.,FAC 11/05/2018 K74.60 Unspecified cirrhosis of liver Stephon Pardo M.D., FACP 11/05/2018 B19.20 Unspecified viral hepatitis C Stephon Pardo M.D.,FACP without hepatic coma 11/05/2018 K76.9 Liver disease, unspecified Stephon Pardo M.D.,FACP 11/05/2018 C22.0 Liver cell carcinoma Stephon Pardo M.D.,FACP 11/05/2018 M19.90 Unspecified osteoarthritis, Ste[facility] M.[facility].,[facility] unspecified site 11/05/2018 Z86.61 Personal history of infections of Stephon Pardo M.D., FACP the central nervous system 11/05/2018 M81.0 Age-related osteoporosis w/o current Stephon Pardo M.D.,[facility] pathological fracture 11/04/2018 R06.02 Shortness of breath Federica Schuster, DATA PROCESSING SYSTEMS CONSULTANT 11/04/2018 C22.0 Liver cell carcinoma Federica Schuster, DATA PROCESSING SYSTEMS CONSULTANT 10/18/2018 S22.43xA Multiple fractures of ribs, Rodrigo [...] 11:15 am - [facility]en Read M.D. at [facility] at [place]/24/2019 - [facility] Read M.D.M16.52 Unilateral post- traumatic osteoarthritis, left hipFollow up:8 weeks Functional Status Description No Information Available Mental Status Description No Information Available Referrals Description No Information Available
--- OUTSIDE RECORDS SUMMARY | 2019-04-16 13:16 | XMS REPORT | Continuity of Care Document ---
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 Manager [phone] Problems Active Problems Provider Date Cirrhosis - non-alcoholic Johanna Reeves PA-C Onset: 12/05/2018 Social History Type Date Description Comments Sex Unknown Tobacco Use Start: Unknown End: Unknown Patient is a former smoker Smoking Status Reviewed: 12/05/18 Patient is a former smoker Allergies, Adverse Reactions, Alerts Description No Known Drug Allergies Medications Active Medications SIG Qnty Indications Ordering Provider Date Lactulose Take 30 MLS (20 Unknown 10GM/15ML Solution G Total) By Mouth Nightly Furosemide Take 1 Tablet By Unknown 40mg Tablets Mouth Every Day Omeprazole Take 1 Capsule Unknown 20mg Capsules DR In The Morning Spironolactone Take 1 bid Unknown 25mg Tablets Mucinex 1 tab twice a Unknown 600mg Tablets ER 12HR day by mouth Medical Marijauna Unknown Xifaxan 1 tablet by Unknown 550mg Tablets mouth bid Oxycodone HCL every 6 hours Unknown 5mg Tablets prn Immunizations Description No Information Available Vital Signs Date Vital Result Comment 12/05/2018 2:02pm Height 69 inches 5'9" Weight 164.00 lb BP Systolic 115 mmHg BP Diastolic 79 mmHg Heart Rate 80 /min BMI (Body Mass Index) 24.2 kg/m2 08/28/2018 1:29pm Height 69 inches 5'9" Weight 170.00 lb BP Systolic 109 mmHg BP Diastolic 75 mmHg Heart Rate 64 /min BMI (Body Mass Index) 25.1 kg/m2 Results Test Date Facility Test Result H/L Range Note CBC W/Auto 01/27/2019 [facility] White Blood 7.4 10^3/uL Normal 3.5-10.8 Differential(!) Count Red Blood Count 4.23 10^6/uL Normal 4.18-5.48 [...] % Nucleated Red Blood Cells % 0.0 CMP(!) 01/27/2019 [facility] Sodium 126 mmol/L Low 135-145 Potassium 4.5 mmol/L Normal 3.5-5.0 Chloride 95 [...] Non- 96.8 >60 Egfr 117.2 >60 1 Laboratory test 01/27/2019 [facility] Inr 1.50 High 0.82-1.09 2 finding Laboratory test 11/04/2018 [facility] Lactic Acid <pending> finding Ser/Plas Mass/Vol CMP(!) 11/04/2018 [facility] Sodium(!) <pending> Potassium(!) <pending> Chloride Serum/Plasma(!) <pending> Carbon Dioxide Ser/Plasm(!) <pending> BUN - Urea Nitrogen(!) <pending> Calcium Ser/Plasma Mass/Vol(!) <pending> Creatinine Serum Mass/Vol(!) <pending> Glucose Serum(!) <pending> BUN/Creatinine Ratio(!) <pending> Albumin Serum/Plasma(!) <pending> Alkaline Phosphatase(!) <pending> Bilirubin Total Mass/Vol(!) <pending> Ast - Sgot <pending> Alt - SGPT <pending> Protein Total <pending> Laboratory test 11/04/2018 [facility] Troponin I <pending> finding CBC W/Auto 11/04/2018 [facility] White Blood Count <pending> Differential(!) Ser Auto CNT RBC Red Blood Count <pending> Hemoglobin Blood <pending> Hematocrit <pending> MCV (Corpuscular Volume) <pending> MCH (Corpuscular Hemoglobin) <pending> MCHC (Corpuscular Hemog Conc) <pending> RDW <pending> Platelet Count Blood Auto CNT <pending> MPV <pending> Lymph% <pending> [place]% <pending> Neutrophil % <pending> Absolute Lymphocytes <pending> Absolute Monocytes <pending> Absolute Neutrophils <pending> Xray 11/04/2018 [facility] Radiology Chest Ap Or Port <pending> Xray 09/30/2018 [facility] Radiology US, Abdomen, Complete (04814) <pending> 1 Because ethnic data is not always [...] Date Location Provider Dx Diagnosis Office Visit 12/05/2018 Gastroenterology Johanna Diehl K74.69 Other cirrhosis 2:15p [facility] ANISH Reeves of liver Assessments Date Code Description Provider 12/05/2018 K74.69 Other cirrhosis of liver Johanna Reeves PA-C Plan of Treatment Future Appointment(s):04/08/2019 10:30 am - Ethel Rangel MD at Gastroenterology [facility]12/05/2018 - LOAN Jennings- CK74.69 Other cirrhosis of liver Functional Status Description No Information Available Mental Status Description No Information Available Referrals Description No Information Available
--- OUTSIDE RECORDS SUMMARY | 2019-04-16 13:16 | XMS REPORT | Continuity of Care Document ---
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 Medicine Problems Active Problems Provider Date Arthralgia [...] a pack a week Smoking Status Reviewed: 03/06/19 Patient is a former Smoked 20 years smoker about 1/2 a pack a week Exercise Type/Frequency Exercises sporadically Allergies, Adverse Reactions, Alerts Active Allergies Reaction Severity Comments Date Hydrocodone 11/29/2017 Inactive Allergies NKDA 10/17/2017 Medications Active Medications SIG Qnty Indications Ordering Date Provider Furosemide 1 by mouth every Unknown 40mg Tablets day Medical Marijuana vape at night Unknown Mucinex 2 by mouth twice a Unknown 600mg Tablets ER day 12HR Omeprazole 1 by mouth every Unknown 20mg Capsules DR day Spironolactone 1 by mouth every Unknown 100mg day Tablets Lactulose take 15ml 4 times Unknown Encephalopathy daily as needed 10GM/15ML Solution Ondansetron Dissolve 1 Tablet Unknown 4mg Tablets On Tongue Every Dispers 4-6 Hours as Needed For Nausea Oxycodone HCL Take 1 Tablet By Unknown 5mg Tablets Mouth Every 6 Hours as Needed . DO Not Exceed 4 Per 24 Hours Xifaxan Take 1 Tablet By Unknown 550mg Tablets Mouth Twice A Day Albuterol Sulfate HFA Inhale 1 To 2 Unknown Puffs By Mouth 108(90Base) mcg/Act Every Four Hours Aerosol as Needed For Shortness Of Breath/Wheezing Cefdinir Take 1 Capsule By Unknown 300mg Capsules Mouth Twice A Day Prednisone Take 4 Tabs For 2 Unknown 10mg Tablets Days, 3 Tabs For 2 Days, 2 Tabs For 2 Days, 1 Tab For 2 Days Lactulose Take 30 MLS (20 G Unknown 10GM/15ML Total) By Mouth Solution Nightly Benzonatate Take One Capsule Unknown 100mg Capsules By Mouth 3 Times A Day as Needed For Cough Lorazepam Unknown 0.5mg Tablets Immunizations Description No Information Available Vital Signs Date Vital Result Comment 03/06/2019 1:00pm Height 67 inches 5'7" Weight 156.00 lb Heart Rate 78 /min BP Systolic Sitting 100 mmHg BP Diastolic Sitting 80 mmHg O2 % BldC Oximetry 91 % BMI (Body Mass Index) 24.4 kg/m2 02/18/2019 7:58am Height 67 inches 5'7" Weight 161.12 lb Heart Rate 84 /min BP Systolic Sitting 100 mmHg BP Diastolic Sitting 70 mmHg Body Temperature 98.3 F O2 % BldC Oximetry 86 % BMI (Body Mass Index) 25.2 kg/m2 Results Test Date Facility Test Result H/L Range Note Order 03/06/2019 [facility] In-House 6 Minute Walk <pending> CBC Auto Diff 01/27/2019 [facility] White Blood 7.4 10^3/uL Normal 3.5-10.[address] [place] [address] [phone] Red Blood Count 4.23 10^6/uL Normal 4.18-5.48 [...] Cells % 0.0 Comp Metabolic Panel 01/27/2019 [facility] Sodium 126 mmol/L Low 135-145 [address] [place] [address] [phone] Potassium 4.5 mmol/L Normal 3.5-5.0 Chloride 95 [...] >60 Egfr 117.2 >60 1 Inr/Protime 01/27/2019 [facility] Inr 1.50 High 0.82-1.[address] [place] [address] [phone] 1 Because ethnic data is not always [...] range: 2.5-3.5 Procedures Date Code Description Status 03/06/2019 25[address] [facility] Measurement Heart Rate, Completed Oximetry Medical Devices Description No Information Available Encounters Type Date Location Provider Dx Diagnosis Office Visit 02/27/2019 [facility] Hannah Stallworth, J96.01 Acute respiratory 11:04a [facility] with Shannan hypoxia Office Visit 02/27/2019 [facility] Camila R09.02 Hypoxemia 2:15p Assoc,carey Francois PA-C Hospitalists M25.512 Pain in left shoulder I50.30 Unspecified diastolic (congestive) heart failure Office Visit 02/26/2019 2:14p [facility] Camila Francois, R09.02 Hypoxemia Assoc, Hospitalists ERIKAC M25.512 Pain in left shoulder C22.0 Liver cell carcinoma I50.30 Unspecified diastolic (congestive) heart failure Office Visit 02/25/2019 2:13p [facility] Camila Francois, R09.02 Hypoxemia Assoc, Hospitalists [...] of the respiratory system Office Visit 02/24/2019 [facility] Stephon Rocha R06.00 Dyspnea, 2:13p Assoc,carey Pardo M.D.,FACP unspecified Hospitalists R09.02 Hypoxemia Office Visit 12/31/2018 [place] M16.52 Unilateral 2:15p [facility] [place] post-traumatic [place] osteoarthritis, left hip Office Visit 11/14/2018 [place] M16.52 Unilateral 9:30a [facility] post-traumatic [place] osteoarthritis, left hip 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 R18.8 Other ascites Assoc,carey Pardo M.D.,FACP Hospitalists K74.60 Unspecified cirrhosis of liver B19.20 Unspecified viral hepatitis C without hepatic coma K76.9 Liver disease, unspecified C22.0 Liver cell carcinoma M19.90 Unspecified osteoarthritis, unspecified site Z86.61 Personal history of infections of the central nervous system M81.0 Age-related osteoporosis w/o current pathological fracture Office Visit 11/04/2018 9:24a [facility] Federica R06.02 Shortness of Assoc,carey Schuster, breath Hospitalists [employer] C22.0 Liver cell carcinoma Office Visit 10/18/2018 [facility] Rodrigo S22.43xA Multiple 11:36a Assoc,carey Zafar M.D. fractures of Hospitalists ribs, bilateral, init for clos fx C22.0 Liver cell carcinoma R18.8 Other ascites B18.2 Chronic viral hepatitis C Office Visit 10/16/2018 [place] Neli M16.12 Unilateral primary 12:05p [facility] [place] osteoarthritis, left [place] hip S22.43xA Multiple fractures of ribs, bilateral, init for clos fx W19.xxxA Unspecified fall, initial encounter Office Visit 10/15/2018 11:36a [facility] Cristina Palacios, M25.552 Pain in Assoc,pc DO left hip Hospitalists R07.81 Pleurodynia Office Visit 09/20/2018 [facility] M16.12 Unilateral primary 9:30a [facility] osteoarthritis, left [place] hip Assessments Date Code Description Provider 03/06/2019 J44.9 Chronic obstructive pulmonary Hannah Stallworth MD disease, unspecified 03/06/2019 R09.02 Hypoxemia Hannah Stallworth MD 02/27/2019 J96.01 Acute respiratory failure with Hannah Stallworth MD hypoxia 02/27/2019 R09.02 Hypoxemia LOAN Back-C 02/27/2019 M25.512 Pain in left shoulder LOAN Back-C 02/27/2019 I50.30 Unspecified diastolic (congestive) Camila Francois PA-C heart failure 02/26/2019 R09.02 Hypoxemia Camila Francois PA-C 02/26/2019 M25.512 Pain in left shoulder LOAN Back-C 02/26/2019 C22.0 Liver cell carcinoma Camila Francois PA-C 02/26/2019 I50.30 Unspecified diastolic (congestive) Camila Francois PA-C heart failure 02/25/2019 R09.02 Hypoxemia Camila Francois PA-C 02/25/2019 R18.8 Other ascites Hannah Stallworth MD 02/25/2019 M25.512 Pain in left shoulder ERIKA BackC 02/25/2019 R06.02 Shortness of breath Hannah Stallworth MD 02/25/2019 C22.0 Liver cell carcinoma ERIKA BackC 02/25/2019 Z87.19 Personal history of other diseases [...] system 02/24/2019 R06.00 Dyspnea, unspecified Stephon Pardo M.D.,[facility] 02/24/2019 R09.02 Hypoxemia [facility] Pardo M.D.,[facility] 02/18/2019 M16.52 Unilateral post-traumatic [place] M.D. osteoarthritis, left hip 12/31/2018 M16.52 Unilateral post-traumatic [place] [facility] M.D. osteoarthritis, left hip 11/14/2018 M16.52 Unilateral post-traumatic [place] [facility] M.D. osteoarthritis, left hip 11/14/2018 M16.52 Unilateral post-traumatic [place] [facility] M.D. osteoarthritis, left hip 11/14/2018 M53.3 Sacrococcygeal disorders, not [place] [facility] M.D. elsewhere classified 11/05/2018 R18.8 Other ascites Stephon Pardo M.D.,[facility] 11/05/2018 K74.60 Unspecified cirrhosis of liver Stephon Pardo M.D., [facility] 11/05/2018 B19.20 Unspecified viral hepatitis C Stephon Pardo M.D.,[facility] without hepatic coma 11/05/2018 K76.9 Liver disease, unspecified Stephon Pardo M.D.,[facility] 11/05/2018 C22.0 Liver cell carcinoma Stephon Pardo M.D.,[facility] 11/05/2018 M19.90 Unspecified osteoarthritis, Stephon Pardo M.D.,[facility] unspecified site 11/05/2018 Z86.61 Personal history of infections of Stephon Pardo M.D., [facility] the central nervous system 11/05/2018 M81.0 Age-related osteoporosis w/o current Stephon Pardo M.D.,[facility] pathological fracture 11/04/2018 R06.02 Shortness of breath eFderica Schuster, [employer] 11/04/2018 C22.0 Liver cell carcinoma Federica Tellez [place], [employer] 10/18/2018 S22.43xA Multiple fractures of ribs, Rodrigo [...] M.D. left hip Plan of Treatment Future Appointment(s):09/04/2019 1:30 pm - Hannah Stallworth MD at [facility]04/15/2019 11:15 am - [place] [facility] M.D. at [place] [facility]27/10/2019 - Hannah Stallworth MDJ44.9 Chronic obstructive pulmonary disease, unspecifiedNew Orders:PFTW/Spirometry Vol Pre/Post Bronchdilat Dlco Complete, Ordered: 03/06/19Follow up:6 lwxngvV53.02 Hypoxemia Functional Status Description No Information Available Mental Status Description No Information Available Referrals Description No Information Available
[2019-04-16] MEDS ORDERED: Morphine 4 MG/ML VIAL (1 ml) 4 MG/ML VIAL IV ONE (14:13)
[2019-04-16] MEDS ORDERED: NS 0.9% 1000 ML** 1,000 ML IV ONE (14:13)
--- NOTE | 2019-04-16 14:18 | ED ---
HPI Chest Pain - HPI Summary HPI Summary: Patient is a 58 y/o M presenting to the ED for a chief complaint of right-sided chest pain that began on 04/16/19. Patient is present with his . Patient states he was returning home from grocery shopping when he bent over to put groceries in the refrigerator and suddenly felt right-sided chest pain. The chest pain is described as a "rubber band snapping" and has a burning sensation. The chest pain worsens with movement. On triage, patient rates the pain as 10/10 in severity. Patient also notes a persistent cough, occasional shortness of breath, occasional chills, abdominal fullness, and abdominal bloating. Patient denies fever. In the past, patient has coughed to the point of pulling a muscle. Patient has an appointment with Dr. Hernandez for a paracentesis on 04/17/19. He has had 35 paracentesis procedures in the past and last had one a week ago. He typically uses 2 L of oxygen at home daily. PMHx is significant for liver cancer and HTN. He is on a liver transplant list and recently saw his transplant team in [place]. Patient denies taking blood thinners. He was recently admitted for one week to [facility] 4 weeks ago. Allergies noted. Medications reviewed. - History of Current Complaint Chief Complaint: EDChestWallPain Time Seen by Provider: 04/16/19 14:03 Hx Obtained From: Patient, Family/Radiation Control Technician - Onset/Duration: Started Hours Ago, Atraumatic, Still Present Timing: Constant, Lasting Hours Initial Severity: Severe Current Severity: Severe Pain Intensity: 10 Pain Scale Used: 0-10 Numeric Chest Pain Location: Right Anterior Chest Pain Radiates: No Character: Burning, Cough, Non-Productive, Other: - "rubber band snapping" Aggravating Factor(s): Movement Alleviating Factor(s): Nothing Associated Signs and Symptoms: Positive: Chest Pain, Shortness of Breath, Chills , Cough, Nonproductive Cough, Other: - Positive abdominal fullness and distention. Negative: Fever - Additional Pertinent History Primary Care Physician: [id number] - Allergy/Home Medications Allergies/Adverse Reactions: Allergies Allergy/AdvReac Type Severity Reaction Status Date / Time hydrocodone AdvReac Mild GI Upset Verified 04/16/19 12:43 Home Medications: Home Medications Ipratropium 0.5MG/2.5ML NEB* [Atrovent 0.5 MG NEB.MINA*] 0.5 mg INH .Q4-6H PRN [History Confirmed 04/16/19] PMH/Surg Hx/FS Hx/Imm Hx Previously Healthy: Yes Endocrine/Hematology History: Denies: Hx Diabetes Cardiovascular History: Denies: Hx Hypertension, Hx Pacemaker/ICD GI History: Reports: Hx Jaundice, Hx Ulcer - 20 years ago History: Reports: Hx Kidney Stones - 20 years ago Denies: Hx Renal Disease Musculoskeletal History: Reports: Other Musculoskeletal History Sensory History: Reports: Hx Contacts or Glasses - glasses Denies: Hx Legally Blind, Hx Deafness, Hx Hearing Aid, Hx Hearing Problem Opthamlomology History: Reports: Hx Contacts or Glasses - glasses Denies: Hx Legally Blind EENT History: Denies: Hx Deafness Psychiatric History: Denies: Hx Panic Disorder - Surgical History Surgical History: Yes Surgery Procedure, Year, and Place: 01/04/18 - L KNEE - ARTHROSCOPIC. Rt KNEE - - 3 TIMES - ACL (TWICE) AND MMT . Rt ARM - BICEP TENDON ATTEMPTED REPAIR Hx Anesthesia Reactions: No Infectious Disease History: No Infectious Disease History: Reports: Hx Hepatitis - hep C Denies: Hx Clostridium Difficile, Hx of Known/Suspected MRSA, Hx Shingles, Hx Tuberculosis, Hx Known/Suspected VRE, Traveled Outside the [place] in Last 30 Days - Family History Known Family History: Positive: Hypertension Negative: Cardiac Disease - Social History Occupation: Disabled Lives: With Family Alcohol Use: None Alcohol Amount: couple one nite then none for 2 weeks Hx Substance Use: Yes Substance Use Type: Reports: None Substance Use Comment - Amount & Last Used: medical Hx Tobacco Use: Yes Smoking Status (MU): Former Smoker Type: Cigarettes Amount Used/How Often: 10 per week Review of Systems Positive: Chills. Negative: Fever Positive: Chest Pain Positive: Shortness Of Breath, Cough Positive: Other - Positive abdominal fullness and distention All Other Systems Reviewed And Are Negative: Yes Physical Exam - Summary Physical Exam Summary: Constitutional: Well-developed, Well-nourished, Alert. (-) Distressed Skin: Warm, Dry HENT: Normocephalic; Atraumatic Eyes: Conjunctiva normal Neck: Musculoskeletal ROM normal neck. (-) JVD, (-) Stridor, (-) Tracheal deviation Cardio: Rhythm regular, rate normal, Heart sounds normal; Intact distal pulses; Radial pulses are 2+ and symmetric. (-) Murmur Pulmonary/Chest wall: Effort normal. (-) Respiratory distress, (-) Wheezes, (-) Rales. 90-92% oxygen saturation on 4 L of oxygen. Abd: Soft, (-) tenderness, (-) Guarding, (-) Rebound. Distended abdomen. Musculoskeletal: (-) Edema Lymph: (-) Cervical adenopathy Neuro: Alert, Oriented x3 Psych: Mood and affect Normal Triage Information Reviewed: Yes Vital Signs On Initial Exam: Initial Vitals Temp Pulse Resp BP Pulse Ox 98.9 F 93 18 132/83 87 04/16/19 12:38 04/16/19 12:38 04/16/19 12:38 04/16/19 12:38 04/16/19 12:38 Vital Signs Reviewed: Yes Procedures - Sedation Patient Received Moderate/Deep Sedation with Procedure: No Diagnostics - Vital Signs Vital Signs Temp Pulse Resp BP Pulse Ox 04/16/19 12:38 98.9 F 93 18 132/83 87 - Laboratory Result Diagrams: 04/16/19 14:50 04/16/19 14:50 Lab Statement: Any lab studies that have been ordered have been reviewed, and results considered in the medical decision making process. - CT Chest/Thorax CTA CT Interpretation Completed By: Radiologist Summary of CT Findings: Chest/Thorax CTA IMPRESSION: 1. NO EVIDENCE FOR PULMONARY EMBOLISM. 2. FINDINGS SUGGESTIVE OF PULMONARY EDEMA. 3. CIRRHOTIC MORPHOLOGY OF THE LIVER AND MODERATE TO LARGE AMOUNT OF ASCITES. THERE IS ALSO SPLENOMEGALY AND SPLENIC VARICES. Reviewed by Dr. Aquino. - EKG 16:00 Cardiac Rate: NL - 87 BPM EKG Rhythm: Sinus Rhythm ST Segment: Normal Ectopy: None Summary of EKG Findings: EKG at 16:00 shows 87 BPM wit normal sinus rhythm, T wave inversions in lead III, no STEMI. Reviewed and interpreted by Dr. Aquino. Chest Pain Course/Dx - Course Course Of Treatment: Patient is here with right-sided chest pain that occurred while he was bending down. Patient is high risk given his cancer status. Patient had a negative CTA for PE or any acute abnormality. Patient was given pain medication improvement in his symptoms. Patient had negative EKG for ischemic changes with a negative troponin. Patient has follow up tomorrow for a paracentesis. Patient does not have any emergent condition necessitating admission. - Diagnoses Provider Diagnoses: Right-sided chest wall pain, Liver cancer Discharge ED - Sign-Out/Discharge Documenting (check all that apply): Patient Departure - Discharge - Discharge Plan Condition: Stable Disposition: HOME Prescriptions: Lidocaine PATCH 5%* [Lidoderm 5% Patch*] 1 patch TRANSDERM DAILY 7 Days #7 patch Patient Education Materials: Chest Wall Pain (ED) Referrals: Marlin Colmenares MD [Primary Care Provider] - Chuy Casas MD [Medical Doctor] - Additional Instructions: FOLLOW UP WITH DR. CASAS AND KEEP YOUR APPOINTMENT FOR YOUR PARACENTESIS. TRY THE LIDOCAINE PATCH AND CONTINUE TAKING OXYCODONE. RETURN TO THE EMERGENCY DEPARTMENT FOR WORSENING OR CONCERNING SYMPTOMS. - Billing Disposition and Condition Condition: STABLE Disposition: Home - Attestation Statements Document Initiated by Scribe: Yes Documenting Scribe: Ashley Downing Provider For Whom Lillian is Documenting (Include Credential): Grey Aquino MD Scribe Attestation: Ashley Zhang, scribed for Grey Aquino MD on 04/16/19 at 2005. Scribe Documentation Reviewed: Yes Provider Attestation: The documentation as recorded by the Ashley cronin accurately reflects the service I personally performed and the decisions made by Grey carey MD Status of Scribe Document: Viewed
[2019-04-16 14:58] LABS: ABS Eosinophils 0.2 10^3/ul (0-0.6); ABS Lymphocytes 0.3 10^3/ul (1.0-4.8); ABS Monocytes 1.3 10^3/ul (0-0.8); ABS Neutrophils 8.3 10^3/ul (1.5-7.7); Eosinophil % 2.4 %; Hematocrit 37 % (42-52); Mean Corpuscular HGB Conc 35 g/dL (31-36); Mean Corpuscular Hemoglobin 36 pg (27-31); Mean Corpuscular Volume 102 fL (80-94); Mean Platelet Volume 6.7 fL (7.4-10.4); Nucleated Red Blood Cells % 0.2; Platelet Count 108 10^3/uL (150-450); Red Blood Count 3.64 10^6 /uL (4.18-5.48); Red Cell Distribution Width 18 % (10-15); White Blood Count 10.2 10^3/uL (3.5-10.8)
[2019-04-16 15:04] LABS: INR 1.67 (0.82-1.09)
[2019-04-16] MEDS ORDERED: HYDROmorphone INJ* 0.5 MG/0.5 ML SYRINGE IV ONE ×2 (15:10→17:05)
[2019-04-16 15:25] LABS: Troponin I 0.01 ng/mL (<0.03)
[2019-04-16 15:47] LABS: Albumin 2.8 g/dL (3.2-5.2); Albumin/Globulin Ratio 0.7 (1-3); BUN/Creatinine Ratio 13.5 (8-20); Calcium 8.3 mg/dL (8.6-10.3); EGFR African American 131.9 (>60); Globulin 3.9 g/dL (2-4); Potassium 4.7 mmol/L (3.5-5.0); Total Bilirubin 3.2 mg/dL (0.2-1.0); Total Protein 6.7 g/dL (6.4-8.9)
[2019-04-16] MEDS ORDERED: Iohexol 350* (CONTRAST) 500 ML MDV IV ONE (16:01)
[2019-04-16 17:11] VITALS: BP 115/74
== END 2019-04-16 17:21 | disposition home or self-care (01) ==
LOC: ED 12:37
DX: R07.89 Other chest pain (principal); C22.8 Malignant neoplasm of liver, primary, unspecified as to type; R05 Cough; R06.02 Shortness of breath; R16.1 Splenomegaly, not elsewhere classified; I86.8 Varicose veins of other specified sites; Z99.81 Dependence on supplemental oxygen; Z88.5 Allergy status to narcotic agent; Z87.891 Personal history of nicotine dependence
CPT/HCPCS: 36415; 71275; 80053; 82803; 83880; 84484; 85025; 85610; 93005; 96361; 96374; 96375; 96376; 99283; J1170; J2270; Q9967

== ENCOUNTER 2019-05-29 11:00 | Emergency (ER) | payer OTHER ==
--- NOTE | 2019-05-29 12:37 | ED ---
HPI Cardiac - HPI Summary HPI Summary: 58-year-old male with a significant past medical history of hepatic carcinoma presents to emergency department today complaining of a left-sided pain which she believes is a rib fracture. Patient states she was brushing his teeth this afternoon when he bent over and had a sudden onset 10 out of 10 left rib pain. Patient denies use of anticoagulation or bleeding disorder. Patient denies recent trauma. Patient has significant pain with palpation of the left ribs. Patient has not taken any medication prior to arrival to emergency department. He denies fever, abdominal pain, rash, pain with urination. Surgical history and family history are noncontributory. - History of Current Complaint Chief Complaint: EDChestWallPain Stated Complaint: FALL LEFT RIB PAIN Time Seen by Provider: 05/29/19 12:36 Hx Obtained From: Patient Onset/Duration: Started Hours Ago Timing: Constant Initial Severity: Severe Current Severity: Severe Pain Intensity: 10 Pain Scale Used: 0-10 Numeric Chest Pain Location: Left Lateral Chest Pain Radiates: No Character: Sharp/Stabbing Aggravating Factor(s): Position, Movement Alleviating Factor(s): Rest, Position Associated Signs and Symptoms: Positive: Chest Pain. Negative: Anxiety, Recent Stress, Headaches, Shortness of Breath, Fever, Lightheadedness, Cough, Abdominal Pain, Vomiting, Bloody Sputum, Wheezing, Edema - Additional Pertinent History Primary Care Physician: [id number] PMH/Surg Hx/FS Hx/Imm Hx Endocrine/Hematology History: Denies: Hx Diabetes Cardiovascular History: Denies: Hx Hypertension, Hx Pacemaker/ICD GI History: Reports: Hx Jaundice, Hx Ulcer - 20 years ago History: Reports: Hx Kidney Stones - 20 years ago Denies: Hx Renal Disease Musculoskeletal History: Reports: Other Musculoskeletal History Sensory History: Reports: Hx Contacts or Glasses - glasses Denies: Hx Legally Blind, Hx Deafness, Hx Hearing Aid, Hx Hearing Problem Opthamlomology History: Reports: Hx Contacts or Glasses - glasses Denies: Hx Legally Blind Psychiatric History: Denies: Hx Panic Disorder - Surgical History Surgery Procedure, Year, and Place: 01/04/18 - L KNEE - ARTHROSCOPIC. Rt KNEE - - 3 TIMES - ACL (TWICE) AND MMT . Rt ARM - BICEP TENDON ATTEMPTED REPAIR Hx Anesthesia Reactions: No Infectious Disease History: No Infectious Disease History: Reports: Hx Hepatitis - hep C Denies: Hx Clostridium Difficile, Hx of Known/Suspected MRSA, Hx Shingles, Hx Tuberculosis, Hx Known/Suspected VRE, Traveled Outside the [place] in Last 30 Days - Family History Known Family History: Positive: Hypertension Negative: Cardiac Disease - Social History Alcohol Use: None Alcohol Amount: couple one nite then none for 2 weeks Hx Substance Use: Yes Substance Use Type: Reports: None Substance Use Comment - Amount & Last Used: medical Hx Tobacco Use: Yes Smoking Status (MU): Former Smoker Type: Cigarettes Amount Used/How Often: 10 per week Review of Systems Constitutional: Negative Eyes: Negative ENT: Negative Cardiovascular: Negative Positive: Chest Pain - chest wall pain. Negative: Palpitations Respiratory: Negative Gastrointestinal: Negative Genitourinary: Negative Positive: Myalgia Skin: Negative Neurological: Negative Psychological: Normal All Other Systems Reviewed And Are Negative: Yes NIH Scale - NIH Scale Best Gaze (Only Horizontal Eye Movement): Normal Visual Field Testing: No Visual Loss Facial Paresis-Pt to Smile & Close Eyes or Grimace Symmetry: Normal/Symmetrical Motor Function - Right Arm: No Drift-Holds 10 Seconds Motor Function - Left Arm: No Drift-Holds 10 Seconds Motor Function - Right Leg: No Drift-Holds 10 Seconds Motor Function - Left Leg: No Drift-Holds 10 Seconds Limb Ataxia-Must be out of Proportion to Weakness Present: Absent Sensory (Use Pinprick to Test Arms/Legs/Trunk/Face): Normal Best Language (Describe Picture, Name Items): No Aphasia Dysarthria (Read Several Words): Normal Extinction and Inattention: No Abnormality Physical Exam Triage Information Reviewed: Yes Vital Signs On Initial Exam: Initial Vitals Temp Pulse Resp BP Pulse Ox 98.6 F 79 18 115/74 92 05/29/19 11:07 05/29/19 11:07 05/29/19 11:07 05/29/19 11:07 05/29/19 11:07 Vital Signs Reviewed: Yes Appearance: Positive: Well-Appearing, No Pain Distress, Well-Nourished Skin: Positive: Warm, Skin Color Reflects Adequate Perfusion. Negative: Purpura Eyes: Positive: EOMI, ALEX ENT: Positive: Hearing grossly normal Respiratory/Lung Sounds: Positive: Clear to Auscultation, Breath Sounds Present Cardiovascular: Positive: RRR, S1, S2 Abdomen Description: Positive: Nontender, Soft Bowel Sounds: Positive: Present Musculoskeletal: Positive: Strength/ROM Intact, Pain @ - Left lateral chest wall Neurological: Positive: Sensory/Motor Intact, Alert, Oriented to Person Place, Time, Normal Gait Psychiatric: Positive: Normal, Affect/Mood Appropriate AVPU Assessment: Alert Procedures - Sedation Patient Received Moderate/Deep Sedation with Procedure: No Diagnostics - Vital Signs Vital Signs Temp Pulse Resp BP Pulse Ox 05/29/19 11:07 98.6 F 79 18 115/74 92 - Laboratory Lab Statement: Any lab studies that have been ordered have been reviewed, and results considered in the medical decision making process. Disposition - Course Course Of Treatment: Patient was evaluated in the emergency department for left rib pain. X-rays were done which showed evidence of left-sided rib fractures without appreciable pneumothorax. Rib fractures are noticed at the left seventh rib and left sixth rib. There is a small pleural effusion. These will heal on their own and did not require surgery. Patient was told to take his at home morphine pain medication for alleviation of his symptoms and to follow up with his primary care physician 5-7 days for further management. Patient agrees with plan. - Differential Dx - Cardiopulmonary Differential Diagnoses - Cardiopulmonary: Chest Wall Pain, Pulmonary Edema - Diagnoses Provider Diagnoses: Left rib fracture Discharge ED - Sign-Out/Discharge Documenting (check all that apply): Patient Departure - Discharge Plan Condition: Stable Disposition: HOME Patient Education Materials: Rib Fracture (ED) Referrals: Marlin Colmenares MD [Primary Care Provider] - 2 Days Additional Instructions: You were seen in the emergency department and diagnosed with 2 rib fractures on the left side. These fractures will heal on their own. Please take ibuprofen for pain and follow up with your primary care physician in 3 days for further evaluation and management. You may apply heat or ice to the area for alleviation of symptoms. Please return to the emergency department immediately if you develop any new or worsening symptoms. Return to activity as tolerated. - Billing Disposition and Condition Condition: STABLE Disposition: Home
[2019-05-29 14:16] VITALS: BP 107/78
== END 2019-05-29 14:15 | disposition home or self-care (01) ==
LOC: ED 11:00
DX: S22.42XA Multiple fractures of ribs, left side, initial encounter for closed fracture (principal); X58.XXXA Exposure to other specified factors, initial encounter; Y92.9 Unspecified place or not applicable; Z87.442 Personal history of urinary calculi; Z86.19 Personal history of other infectious and parasitic diseases; Z87.891 Personal history of nicotine dependence; Z85.05 Personal history of malignant neoplasm of liver
CPT/HCPCS: 99282

== ENCOUNTER 2019-06-11 13:15 | Observation (INO) | payer OTHER ==
--- NOTE | 2019-06-11 13:39 | ED ---
Complex/Multi-Sys Presentation - HPI Summary HPI Summary: The patient is a 58 y/o male presenting to [facility] accompanied by daughter with a chief complaint of feeling unwell for the last few weeks with worsening in the last week. He reports that he has spent the last week in bed as he has been increasingly fatigued and weak. He endorses chills but denies any fevers. He has also developed some numbness in the left wrist to elbow and left ankle to calf about three weeks ago, but it is only noticeable when he is lying down at night. He notes a history of liver cancer with radiation treatment initially two years ago, without treatment since, and he has never had chemotherapy, although he is in need of a transplant. Dr. Hernandez is his oncologist at [facility] but he follows [facility]. PMHx: COPD, hepatitis C. Former smoker, no EtOH, medical marijuana use. Medications reviewed. Allergies noted. Reviewed patient's medical records from [place]: ABG: pH 7.48, CO2 32, pO2 60, CO3 23 MARTHA: EF 63% Abdominal MRI (03/05/19): Moderate ascites CXR (05/07/19): Pulmonary edema, pleural effusion on left side - History Of Current Complaint Chief Complaint: EDGeneral Time Seen by Provider: 06/11/19 13:28 Hx Obtained From: Patient Onset/Duration: Lasting Weeks, Still Present Timing: Weeks Severity Currently: Moderate Severity Initially: Mild Aggravating Factor(s): nothing Alleviating Factor(s): nothing Associated Signs And Symptoms: Positive: Weakness, Other - chills, fatigue, numbness in LUE and LLE. Negative: Fever - Allergies/Home Medications Allergies/Adverse Reactions: Allergies Allergy/AdvReac Type Severity Reaction Status Date / Time No Known Allergies Allergy Verified 06/11/19 13:26 Home Medications: Home Medications Metoprolol Tartrate TAB* [Lopressor TAB*] 25 mg PO DAILY 06/11/19 [History Confirmed 06/11/19] Omeprazole CAP (NF) [Prilosec CAP* 20 MG] 20 mg PO DAILY 06/11/19 [History Confirmed 06/11/19] Spironolactone TAB* [Aldactone TAB 25 MG*] 50 mg PO BID 06/11/19 [History Confirmed 06/11/19] traZODone TAB* [Desyrel TAB*] 50 mg PO BEDTIME 06/11/19 [History Confirmed 06/11] PMH/Surg Hx/FS Hx/Imm Hx Endocrine/Hematology History: Denies: Hx Diabetes Cardiovascular History: Denies: Hx Hypertension, Hx Pacemaker/ICD Comment Only: Other Cardiovascular Problems/Disorders - LIVER CA Respiratory History: Reports: Hx Chronic Obstructive Pulmonary Disease (COPD) GI History: Reports: Hx Jaundice, Hx Ulcer - 20 years ago History: Reports: Hx Kidney Stones - 20 years ago Denies: Hx Renal Disease Musculoskeletal History: Reports: Other Musculoskeletal History Sensory History: Reports: Hx Contacts or Glasses - glasses Denies: Hx Legally Blind, Hx Deafness, Hx Hearing Aid, Hx Hearing Problem Opthamlomology History: Reports: Hx Contacts or Glasses - glasses Denies: Hx Legally Blind Psychiatric History: Denies: Hx Panic Disorder - Surgical History Surgical History: Yes Surgery Procedure, Year, and Place: 01/04/18 - L KNEE - ARTHROSCOPIC. Rt KNEE - - 3 TIMES - ACL (TWICE) AND MMT . Rt ARM - BICEP TENDON ATTEMPTED REPAIR Hx Anesthesia Reactions: No Infectious Disease History: No Infectious Disease History: Reports: Hx Hepatitis - hep C Denies: Hx Clostridium Difficile, Hx of Known/Suspected MRSA, Hx Shingles, Hx Tuberculosis, Hx Known/Suspected VRE, Traveled Outside the [place] in Last 30 Days - Family History Known Family History: Positive: Hypertension Negative: Cardiac Disease - Social History Alcohol Use: None Alcohol Amount: couple one nite then none for 2 weeks Hx Substance Use: Yes Substance Use Type: Reports: None Substance Use Comment - Amount & Last Used: medical Hx Tobacco Use: Yes Smoking Status (MU): Former Smoker Type: Cigarettes Amount Used/How Often: 10 per week Review of Systems Positive: Chills, Fatigue. Negative: Fever Positive: Weakness, Numbness - LLE and LUE All Other Systems Reviewed And Are Negative: Yes Physical Exam - Summary Physical Exam Summary: Constitutional: Chronically ill-appearing, Think, Alert. (-) Distressed Skin: Warm, Dry HENT: Chalazion on the left upper eyelid; Atraumatic Eyes: Conjunctiva normal Neck: Musculoskeletal ROM normal neck. (-) JVD, (-) Stridor, (-) Nuchal rigidity Cardio: Rhythm regular, rate normal, Heart sounds normal; Intact distal pulses; Radial pulses are 2+ and symmetric. (-) Murmur Pulmonary/Chest wall: Slight increased work of breathing. (-) Respiratory distress, (-) Wheezes, (-) Rales Abd: Soft, (-) tenderness, (+) Distension, (-) Guarding, (-) Rebound Musculoskeletal: (-) Edema Lymph: (-) Cervical adenopathy Neuro: Alert, PERRL, Oriented x3 (sometime slow to respond), Strength normal, Cranial nerves II-XII are grossly intact. SILT, Strength 5/5 BUE and BLE, (-) Dysmetria, (-) Nystagmus. Ambulates slowly Psych: Mood and affect Normal Triage Information Reviewed: Yes Vital Signs On Initial Exam: Initial Vitals Temp Pulse Resp BP Pulse Ox 98.4 F 63 16 92/62 94 06/11/19 13:19 06/11/19 13:19 06/11/19 13:19 06/11/19 13:19 06/11/19 13:19 Vital Signs Reviewed: Yes - Pat Coma Scale Best Eye Response: 4 - Spontaneous Best Motor Response: 6 - Obeys Commands Best Verbal Response: 5 - Oriented Coma Scale Total: 15 Procedures - Sedation Patient Received Moderate/Deep Sedation with Procedure: No Diagnostics - Vital Signs Vital Signs Temp Pulse Resp BP Pulse Ox 06/11/19 13:19 98.4 F 63 16 92/62 94 - Laboratory Result Diagrams: 06/12/19 05:44 06/12/19 05:44 Lab Statement: Any lab studies that have been ordered have been reviewed, and results considered in the medical decision making process. - Radiology CXR Radiology Interpretation Completed By: Radiologist Summary of Radiographic Findings: Impression: Hyperinflated lung espinoza are noted. Chronic interstitial disease is noted. ED physician has reviewed this report. - CT Brain CT CT Interpretation Completed By: Radiologist Summary of CT Findings: Impression: No intracranial mass or hemorrhage is noted. ED physician has reviewed this report. - EKG 1353 Cardiac Rate: Bradycardia - 57 bpm EKG Rhythm: Sinus Bradycardia Summary of EKG Findings: An EKG at 1353 reveals sinus bradycardia at 57 bpm, nml axis, short MS interval. No STEMI. No acute changes. ED physician has reviewed and interpreted this EKG. Re-Evaluation - Re-Evaluation First Eval Re-Evaluation Time: 14:40 Comment: Patient's ammonia elevated; his daughter notes that his last ammonia was drawn 05/07/19 and found to be 54. 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 - VSS(chronic hypoxia on 2-4 L NC). Chronically ill appearing. - normal neuro exam (had reported paresthesias), CT head neg. - CXR w/o acute abnl. Labs notable for elevated ammnonia from 50 4 weeks ago. Possible missed doses of lactulose. Na 128 has had hyponatremia in past. - plan for admission to hospitalist for hepatic encephelopathy. - Diagnoses Provider Diagnoses: Hepatic encephalopathy, Hyponatremia, History of liver cancer - Physician Notifications Discussed Care Of Patient With: Ellie Hernandez - oncology Time Discussed With Above Provider: 15:00 Instructed by Provider To: Other - I discussed the patient's case with Dr. Hernandez, who recommends hospitalist admission. She notes that the patient is cancer-free. Dr. Hatfield accepts the patient for admission at 1505. Discharge ED - Sign-Out/Discharge Documenting (check all that apply): Patient Departure - Patient accepted for admission by Dr. Hatfield. - Discharge Plan Condition: Stable Disposition: ADMITTED TO [facility] - Billing Disposition and Condition Condition: STABLE Disposition: Admitted to [facility] - Attestation Statements Document Initiated by Lillian: Yes Documenting Scribe: Dara Scott Provider For Whom Lillian is Documenting (Include Credential): Dr. Ruthie Christie MD Scribe Attestation: Dara Zhang scribed for Dr. Ruthie Christie MD on 06/13/19 at 1420. Scribe Documentation Reviewed: Yes Provider Attestation: The documentation as recorded by the Dara cronin accurately reflects the service I personally performed and the decisions made by me, Dr. Ruthie Christie MD Status of Scribe Document: Viewed
[2019-06-11 14:09] LABS: ABS Eosinophils 0.1 10^3/ul (0-0.6); ABS Lymphocytes 0.3 10^3/ul (1.0-4.8); ABS Monocytes 0.9 10^3/ul (0-0.8); ABS Neutrophils 6.1 10^3/ul (1.5-7.7); Eosinophil % 1.9 %; Hematocrit 44 % (42-52); Hemoglobin 15.1 g/dL (14.0-18.0); Lymphocyte % 4.3 %; Mean Corpuscular HGB Conc 34 g/dL (31-36); Mean Corpuscular Hemoglobin 35 pg (27-31); Mean Corpuscular Volume 101 fL (80-94); Mean Platelet Volume 7.2 fL (7.4-10.4); Platelet Count 114 10^3/uL (150-450); Red Blood Count 4.36 10^6 /uL (4.18-5.48); Red Cell Distribution Width 17 % (10-15); White Blood Count 7.5 10^3/uL (3.5-10.8)
[2019-06-11 14:22] LABS: INR 1.45 (0.82-1.09)
[2019-06-11 14:28] LABS: Troponin I 0.01 ng/mL (<0.03)
[2019-06-11 14:37] LABS: Albumin/Globulin Ratio 0.7 (1-3); BUN/Creatinine Ratio 25.3 (8-20); Calcium 9.1 mg/dL (8.6-10.3); EGFR African American 98.9 (>60); EGFR Non-African American 81.7 (>60); Globulin 4.2 g/dL (2-4); Potassium 4.9 mmol/L (3.5-5.0); Total Bilirubin 2.4 mg/dL (0.2-1.0); Total Protein 7.2 g/dL (6.4-8.9)
[2019-06-11] MEDS ORDERED: Al Hydrox/Mg Hydrox/Simet LIQ* 30 ML UDC PO PRN (16:07)
[2019-06-11] MEDS ORDERED: Ipratropium 0.5MG/2.5ML NEB* 0.5 MG/2.5 ML NEB.SOLN INH PRN (16:09)
[2019-06-11] MEDS ORDERED: Albuterol HFA INHALER* 8 gm MDI INH PRN (16:09)
[2019-06-11] MEDS ORDERED: Ondansetron TAB* 4 MG PO PRN (16:16)
[2019-06-11] MEDS: oxyCODONE TAB* 5 MG TAB PO PRN ×2 (17:39→21:28)
--- NOTE | 2019-06-11 19:38 | HP ---
CC: Dr. Marlin Colmenares; Dr. Ellie Hernandez, Oncology * CC: Lizzie De Anda RN, [facility], Fax # , phone # [phone] * HISTORY AND PHYSICAL: DATE OF ADMISSION: 06/11/19 PRIMARY CARE PROVIDER: Dr. Marlin Colmenares at [facility]. CHIEF COMPLAINT: Bilateral leg tingling. HISTORY OF PRESENT ILLNESS: Javon Collins is a 58-year-old male with a history of hepatocellular carcinoma and liver failure due to that as well as hepatitis C, who is on liver transplant list in [facility] and who presented complaining of bilateral leg tingling. The patient also stated that his legs were feeling "rubber." He stated that the tingling had been ongoing for several weeks, but he has had progressive weakness and yesterday he had problems getting from one room to the other. He was noted to have ammonia level of 134 and he is going to be placed on overnight observation with hepatic encephalopathy. The patient stated that he was instructed to stop his lactulose as his bowel movements are too frequent. He stated that at some point within the past couple of weeks, he had bowel movements 5 or 6 times a day. He curbed his lactulose to the point that 2 days ago he took 1 dose of 15 mg and yesterday he does not remember taking any as well as today. PAST MEDICAL HISTORY: 1. History of hepatitic C. 2. History of liver cirrhosis. 3. Hepatocellular carcinoma, the patient is currently on liver transplant list. 4. History of falls with left-sided rib fracture in September 2018. 5. History of an episode of COPD exacerbation in February 2019, after that the patient had developed chronic hypoxemic respiratory failure and required 2 to 4 L of continuous oxygen. 6. History of paroxysmal SVT while in COPD exacerbation. 7. The patient had been seeing Dr. Hernandez from Oncology for recurrent paracentesis. He stated that the last one was approximately 2 weeks ago. PAST SURGICAL HISTORY: Includes knee arthroscopies. MEDICATIONS: Current medications include: 1. Lactulose. The patient is supposed to take 15 mg twice a day, but has not been doing so. 2. Omeprazole 20 mg daily. 3. Metoprolol tartrate 25 mg daily. 4. Desyrel 50 mg at bedtime. 5. Morphine sulfate 15 mg b.i.d. 6. Lidoderm patch 1 patch daily. 7. Atrovent nebulizer on a p.r.n. basis. 8. Zofran 4 mg every 4 hours p.r.n. 9. Furosemide 40 mg daily. 10. Albuterol inhaler on a p.r.n. basis. 11. Aldactone 50 mg b.i.d. 12. Rifaximin 550 mg b.i.d. 13. Medical marijuana on a p.r.n. basis. ALLERGIES: HYDROCODONE. FAMILY HISTORY: Father who of brain aneurysm and mother who had a stroke and heart disease. SOCIAL HISTORY: The patient is on disability. He lives with his girlfriend. He has 2 children, one of them Huma Collins is by the patient's bedside. He names his children as his surrogates. He does not have healthcare proxy on file. He is a full code. The patient denies any tobacco, alcohol, or drug use. REVIEW OF SYSTEMS: The patient complains of bilateral leg tingling, bilateral leg weakness and problems with ambulation. The patient has stopped taking lactulose approximately 2 day ago. His bowel movements had been sparse in the past 24 hours. Remaining 12 systems were reviewed with the patient who is a rather poor historian and were otherwise negative. PHYSICAL EXAMINATION GENERAL: The patient is a very pleasant 58-year-old male who is in no acute distress. The patient is alert and oriented x3. VITAL SIGNS: Blood pressure of 109/79, heart rate of 65 and regular, respiratory rate 19, oxygen saturation 95% on room air, temperature of 98.4. HEENT: Head: Atraumatic, normocephalic. Eyes: Pupils are equal and reactive to light and accommodation. Mildly icteric sclerae noted. Oropharynx clear. Mucosa moist. NECK: Supple. No JVD. No bruits bilaterally. RESPIRATORY: Faint crackles at the right lung base, otherwise clear. CARDIOVASCULAR: Regular rate and rhythm. No murmurs. ABDOMEN: Soft with massive ascites, nontender. Bowel sounds present in all 4 quadrants. EXTREMITIES: There is no edema. Pulses are +2 bilaterally. No clubbing or cyanosis. NEUROLOGIC: The patient is a rather convoluted historian, but he is oriented x3. Cranial nerves II through XII grossly intact. Motor strength is 5/5 bilaterally. Sensation is grossly intact. Speech is clear. There is no asterixis noted. SKIN: On evaluation of the skin, the patient has mild jaundice. DIAGNOSTIC STUDIES/LAB DATA: White blood cell count of 7.5, hemoglobin of 15.1 , hematocrit of 44 , MCV of 101, and platelets 114. INR 1.45. Sodium of 128, potassium of 4.9, chloride 99, carbon dioxide 22, BUN 24, creatinine 0.95, bilirubin of 2.4, AST of 42, ALT of 18, alkaline phosphatase of 109, ammonia of 134. Brain CT, impression: "No intracranial mass or hemorrhage is noted." Portable chest x-ray read by radiologist as "hyperinflated lung espinoza are noted. Chronic interstitial disease is noted." ASSESSMENT AND PLAN: 1. The patient has bilateral leg tingling with problems of generalized weakness and some intermittent confusion. Likely due to hepatic encephalopathy. The patient is going to be placed on lactulose 15 mg 3 times a day. His ammonia level is going to be rechecked in the morning. I will also ask Physical Therapy to see the patient for evaluation. 2. In regards to the patient's history of ascites and liver failure, the patient's chronic medications that include furosemide and Aldactone are going to be continued as well as his rifaximin to continue treatment for hepatic encephalopathy. 3. The patient has history of chronic obstructive pulmonary disease, currently not in exacerbation. We will continue his nebulizer treatments as needed as well as his supplemental oxygen that currently is at 4 L. 4. The patient's hyponatremia is chronic and at baseline. 5. The patient's thrombocytopenia is chronic and at baseline. 6. For DVT prophylaxis, the patient is going to be placed on heparin subcutaneously. 7. For GI prophylaxis in patient with liver failure, omeprazole is going to be continued and in fact it is going to be substituted with Protonix due to Protonix being a hospital formulary. 8. The patient's code status is full, his surrogate is his daughter. TIME SPENT: Approximately 65 minutes was spent on admission of this patient, more than half of that time was spent [id number] with the patient during the interview and physical exam. [id number]/[facility] #: [id number] [facility]
[2019-06-11] MEDS ORDERED: Lidocaine Patch REMOVE* 1 NOTE MISC PATCH OFF SCH (21:00)
[2019-06-11] MEDS ORDERED: traZODone TAB* 50 MG TAB PO SCH (21:00)
[2019-06-11] MEDS ORDERED: Nicotine Patch Removal NOTE PATCH OFF SCH (21:00)
[2019-06-11] MEDS: Morphine ORAL.SOLN 10 mg* 2 MG/ML UDC 5 ml PO SCH (21:07)
[2019-06-11] MEDS: Spironolactone TAB* 25 MG PO SCH (21:12)
[2019-06-11] MEDS: Heparin VIAL(*) 5000 UNITS/ML VIAL (FIVE THOUSAND) SUBCUT SCH (21:14)
[2019-06-11] MEDS: Lactulose* 15 ML UDC PO SCH (21:28)
[2019-06-11] MEDS: RiFAXimin* 550 MG TAB PO SCH (21:28)
[2019-06-12] MEDS: oxyCODONE TAB* 5 MG TAB PO PRN (03:30)
[2019-06-12 06:07] LABS: ABS Basophils 0.1 10^3/ul (0-0.2); ABS Eosinophils 0.2 10^3/ul (0-0.6); ABS Lymphocytes 0.4 10^3/ul (1.0-4.8); ABS Monocytes 0.9 10^3/ul (0-0.8); ABS Neutrophils 5.2 10^3/ul (1.5-7.7); Eosinophil % 3.5 %; Hematocrit 42 % (42-52); Hemoglobin 14.4 g/dL (14.0-18.0); Lymphocyte % 5.5 %; Mean Corpuscular HGB Conc 35 g/dL (31-36); Mean Corpuscular Hemoglobin 35 pg (27-31); Mean Corpuscular Volume 101 fL (80-94); Mean Platelet Volume 7.2 fL (7.4-10.4); Platelet Count 107 10^3/uL (150-450); Red Blood Count 4.09 10^6 /uL (4.18-5.48); Red Cell Distribution Width 17 % (10-15); White Blood Count 6.9 10^3/uL (3.5-10.8)
[2019-06-12 06:23] LABS: Albumin 2.9 g/dL (3.2-5.2); Albumin/Globulin Ratio 0.7 (1-3); BUN/Creatinine Ratio 23.2 (8-20); Calcium 8.5 mg/dL (8.6-10.3); EGFR African American 117.2 (>60); EGFR Non-African American 96.8 (>60); Total Bilirubin 2.2 mg/dL (0.2-1.0); Total Protein 6.9 g/dL (6.4-8.9)
[2019-06-12] MEDS: Heparin VIAL(*) 5000 UNITS/ML VIAL (FIVE THOUSAND) SUBCUT SCH (06:33)
[2019-06-12] MEDS: Lactulose* 15 ML UDC PO SCH (08:21)
[2019-06-12] MEDS: Morphine ORAL.SOLN 10 mg* 2 MG/ML UDC 5 ml PO SCH (08:21)
[2019-06-12] MEDS: RiFAXimin* 550 MG TAB PO SCH (08:22)
[2019-06-12] MEDS: Spironolactone TAB* 25 MG PO SCH (08:22)
[2019-06-12] MEDS ORDERED: Furosemide TAB* 20 MG PO SCH (09:00)
[2019-06-12] MEDS ORDERED: Metoprolol Tartrate TAB* 25 MG PO SCH (09:00)
[2019-06-12] MEDS ORDERED: Lidocaine PATCH 5%* 1 PATCH TRANSDERM SCH (09:00)
[2019-06-12] MEDS ORDERED: Pantoprazole TAB * 40 MG TAB PO SCH (09:00)
[2019-06-12 11:33] VITALS: BP 118/77
--- NOTE | 2019-06-13 02:19 | DS ---
DISCHARGE SUMMARY: DATE OF ADMISSION: 06/11/19 DATE OF DISCHARGE: 06/12/19 PRIMARY DIAGNOSES: 1. Hepatic encephalopathy. 2. Weakness secondary to hepatic encephalopathy. 3. Hyponatremia. 4. Liver cirrhosis and hepatocellular carcinoma. SECONDARY DIAGNOSES: 1. Hepatitis C. 2. Liver cirrhosis. 3. Hepatocellular carcinoma. The patient currently on transplant list. 4. History of falls with left-sided fracture in September 2018. 5. Chronic obstructive pulmonary disease exacerbation in the past. 6. Chronic hypoxemic respiratory failure, requiring 2 to 4 L of oxygen continuously at home. 7. Paroxysmal supraventricular tachycardia. 8. Follows every [address] Hernandez for recurrent paracentesis. HOSPITAL COURSE: 1. A 58-year-old male with history of hepatocellular carcinoma and liver failure secondary to hepatitis C, who is on a transplant list at [place], came in with complaints of bilateral tingling and legs feeling like rubber, also has been weak and had progressive weakness. The patient had stopped taking his lactulose 1 to 2 days ago. Prior to that, has been adjusting his lactulose appropriately per his bowel movements. He was noted to have an ammonia level of 134 when he came to the hospital. The patient was started on lactulose 15 mg 3 times a day and Physical Therapy worked with the patient. Within 24 hours, his weakness has improved. His symptoms of rubbery legs have improved and the patient requesting to go home. The patient had a brain CT when he came to the ER, which showed no intracranial mass or hemorrhage. Portable x-ray showed hyperinflated lung espinoza, chronic interstitial disease. The patient walked with the nurse's aide and Physical Therapy, and did well today. The patient's ammonia level was still noted to be elevated today at 126. The patient's sodium was also lower than his usual at 126 even though the patient has had fluctuating sodiums in the last couple of months and previously between 124 and 128. The patient was given an option to stay longer; however, the patient reports that he feels significantly better and wants to go home today and reports that he will follow up with his primary care doctor and Dr. Hernandez, hence the patient will be discharged today. 2. The patient to take his lactulose 3 times a day and adjust further based on instructions from his PCP and his transplant team. The patient to have BMP and ammonia level checked as an outpatient within a week. 3. The patient to follow up with his PCP within a week. 4. The patient has a followup with Dr. Hernandez next week. 5. Vitals and labs noted to be stable at time of discharge; temperature 97.9, pulse 69, respiratory rate 16, oxygen saturation 95% on 2 L nasal cannula, blood pressure 118/77. PHYSICAL EXAMINATION: HEENT: NC/AT. Heart: S1, S2 present. Regular at the time of exam. Lungs: Clear. Abdomen: Distended with moderate ascites. No rebound, no guarding. Extremities noted to have no edema. Neuro: Alert, oriented x3. DIAGNOSTIC STUDIES/LAB DATA: Labs: Sodium 126, potassium 4, chloride 98, CO2 is 22, BUN 19, creatinine 0.82. Ammonia initially 134, down to 126. MEDICATION LIST AT TIME OF DISCHARGE: 1. Trazodone 50 mg p.o. at bedtime. 2. Spironolactone 50 mg p.o. b.i.d. 3. Rifaximin 550 mg p.o. b.i.d. 4. Zofran 4 mg p.o. q.4 hours p.r.n. 5. Prilosec 20 mg p.o. daily. 6. Metoprolol 25 mg p.o. daily. 7. Medical marijuana 2 puffs inhalation q.p.m. p.r.n. 8. Lidocaine patch. 9. Lactulose 15 mL p.o. t.i.d. 10. Atrovent 0.5 mg inhalation q.4 to q.6 p.r.n. 11. Furosemide 40 mg p.o. daily. 12. Albuterol 1 to 2 puffs inhalation q.4 p.r.n. CONDITION AT DISCHARGE: Stable. DISPOSITION: Home. TIME SPENT: Total time spent on discharge is equal to 50 minutes. [id number]/[facility] #: [id number] MTDD
== END 2019-06-12 12:30 | disposition home or self-care (01) ==
LOC: ED 13:15 → MED 16:07
PROVIDERS: ADMIT Internal Medicine; ATTEND Internal Medicine
DX: K72.90 Hepatic failure, unspecified without coma (principal); R53.1 Weakness; J44.1 Chronic obstructive pulmonary disease with (acute) exacerbation; I47.1 Supraventricular tachycardia; E87.1 Hypo-osmolality and hyponatremia; K74.60 Unspecified cirrhosis of liver; C22.0 Liver cell carcinoma; B19.20 Unspecified viral hepatitis C without hepatic coma; Z91.81 History of falling; J96.91 Respiratory failure, unspecified with hypoxia; Z99.81 Dependence on supplemental oxygen; Z79.899 Other long term (current) drug therapy; Z87.891 Personal history of nicotine dependence; Z87.442 Personal history of urinary calculi; R53.83 Other fatigue
CPT/HCPCS: 36415; 70450; 71046; 80053; 82140; 83735; 84484; 85025; 85610; 93005; 94640; 96372; 99285; A9270-GY; G0378; J1644